=== PATIENT | male | born 1990 | race Two or more races ===

== ENCOUNTER 2020-09-16 23:27 | Observation (INO) | payer OTHER, SELFPAY ==
[2020-09-16] VITALS (7 sets, daily range): BP systolic 132–149; BP diastolic 76–92; PULSE 98–120; RESP 19–25; TEMP 38.3; O2SAT 96
--- NOTE | ~2020-09-16 | XR_ITS ---
EXAMINATION: XR chest 1V portable EXAM DATE: 09/17/2020 01:23 INDICATION: Seizure, cough. TECHNIQUE: Portable AP frontal chest x-ray was obtained. There is no prior study for comparison. FINDINGS: Low lung volume causing some pulmonary vascular crowding. No confluent consolidation, pneum othorax or pleural effusion suspected. Cardiomediastinal silhouette is normal. There are no osseous a bnormalities identified. IMPRESSION: Low lung volume. No definite airspace disease. Reviewed, dictated and finalized at location A. LITIES ASSISTANT
--- NOTE | ~2020-09-16 | CT_ITS ---
EXAMINATION: CT brain wo con EXAM DATE: 09/17/2020 01:32 INDICATION: Seizure. TECHNIQUE: Spiral CT of the head was performed without contrast. Axial, coronal and sagittal images were reviewed. The dose-length product (DLP) for this examination was 756.67 mGy-cm. The exposure w as tailored according to patient size, and iterative reconstruction (ASIR) was used as additional dos e reduction technique. There is no prior study for comparison. FINDINGS: There is dense calcification in the right parietal lobe white matter measuring about 1.2 cm in greatest axial dimension, without adjacent edema. Another smaller calcification measuring 9 mm in the right occipital region. These are chronic, could be sequela from prior infection, possibly conge nital. Bilateral symmetric basal ganglia dystrophic calcification. No acute intracranial hemorrhage or infarction. There is no mass effect or midline shift. The ventr icles are normal in size. There are no extra-axial collections. There are no acute calvarial fractu res. The orbits are unremarkable. Soft tissue is unremarkable. There is extensive ethmoid mucoperio steal thickening, small regions in both maxillary sinuses. IMPRESSION: 1. 2 benign right subcortical white matter calcifications, could be sequela from prior infection. 2. No acute intracranial findings. 3. Extensive ethmoid sinus opacity. Reviewed, dictated and finalized at location A. SQUAD COMMANDER IMPRESSION: 1. 2 benign right subcortical white matter calcifications, could be sequela fr om prior infection. 2. No acute intracranial findings. 3. Extensive ethmoid sinus opacity.
[2020-09-16] MEDS: SODIUM CHLORIDE 0.9% IV 1,000 ML 999 ML IV CONT (23:25)
--- NOTE | 2020-09-16 23:34 | ECG_ITS ---
Measurements Intervals Aldie Rate: 96 P: 50 NV: 135 QRS: 84 QRSD: 93 T: -5 QT: 344 QTc: 435 Interpretive Statements SINUS RHYTHM VOLTAGE CRITERIA FOR LVH MINIMAL Q WAVES- ANTEROLAT/INF LEADS BORDERLINE T WAVE ABNORMALITY- ANTEROLAT/INF LEADS BORDERLINE ECG Electronically Signed On 09-17-2020 7:08:18 DESIGNER/WRITER by Blane Hughes D.O.
[2020-09-16] MEDS: LORazepam INJ (*CRX) 2 MG/ML VIAL 1 MG IV PUSH (23:37)
[2020-09-16 23:45] LABS: Basophils Percent Auto 0.1 % (0.2-1.2); Hemoglobin 11.4 g/dL (14.0-18.0); Immature Granulocyte Absolute 0.05 K/mm3 (0.00-0.031); Immature Granulocyte Percent A 0.3 % (0-0.5); Lymphocytes Absolute Auto 1.86 K/mm3 (0.9-3.2); Lymphocytes Percent Auto 12.9 % (18.3-44.2); Mean Corpuscular HGB Conc 33.5 g/dl (32-36); Mean Corpuscular Hemoglobin 28.3 pg (26-34); Mean Corpuscular Volume 84.4 fl (80-100); Mean Platelet Volume 10.7 fl (7.4-10.4); Monocytes Absolute Auto 1.1 K/mm3 (0.1-0.6); Monocytes Percent Auto 7.7 % (2.6-8.5); Neutrophils Absolute Auto 11.4 K/mm3 (1.3-6.7); Platelet Count Result 289 k/mm3 (150-375); Red Blood Count 4.03 M/mm3 (4.6-6.20); Red Cell Distribution Width 11.9 % (11.5-14.5); White Blood Count 14.4 K/mm3 (4.5-10.0)
[2020-09-16] MEDS: levETIRAcetam 1000MG/NACL100ML 1,000 MG/100 ML BAG 400 MG IVPB (23:45)
--- NOTE | 2020-09-16 23:45 | PC.NURSE ---
ED techs to bedside. FSBS done. mother refuses to let staff straight cath patient for urine. states we can wait and he can use a urinal. attempted to explain need for urine to facilitate treatment. mother still refuses.
[2020-09-16 23:54] LABS: INR 1.1; Prothrombin Time 14.4 Seconds (11.1-14.7)
[2020-09-16 23:55] LABS: Partial Thromboplastin Time 31.1 SECONDS (22.3-36.8)
[2020-09-17] VITALS (23 sets, daily range): BP systolic 119–149; BP diastolic 67–98; PULSE 74–112; RESP 18–34; TEMP 36.4–37.3; O2SAT 90–100; BMI 28.4
[2020-09-17 00:01] LABS: Albumin Level 4.2 g/dL (3.5-5.1); Alkaline Phosphatase 98 U/L (38-126); Anion Gap 13 mmol/L (8-16); Aspartate Amino Transferase 113 U/L (17-59); Bilirubin,Total 0.5 mg/dL (0.2-1.3); Blood Urea Nitrogen 17 mg/dL (9-20); Calcium 9.1 mg/dL (8.4-10.2); Carbon Dioxide 19 mmol/L (22-30); Chloride 105 mmol/L (98-107); Estimated CRCL calculation 45 ml/min; Estimated Glomerular Filt Rate 33; Glucose 138 mg/dL (75-110); Potassium 3.4 mmol/L (3.4-5.0); Sodium 137 mmol/L (137-145)
[2020-09-17 00:02] LABS: Glucose Point of Care 158 (65-105)
[2020-09-17 00:03] LABS: Lactic Acid Reflex 4.7 mmol/L (0.7-2.1)
[2020-09-17 00:08] LABS: Alanine Aminotransferase 32 U/L (4-50)
--- NOTE | 2020-09-17 00:11 | ED.GENADULT ---
HPI - General Adult General Chief complaint: Seizure Stated complaint: SEIZURE Time Seen by Provider: 09/16/20 23:29 History of Present Illness HPI narrative: Patient is a 30-year-old gentleman who presents to the emergency department with chief complaint of seizure. Patient has a long history of seizures and has been on medications for some time. The patient decided recently that he does not like [place] and I decided to stop taking his medications. The patient had a seizure lasting between 1 and 2 minutes at home and then was confused and combative afterwards. Patient's family states that he gets rather aggressive after he has a seizure. Patient family reports no trauma no new illness denies fever or chills. Related Data Allergies Allergy/AdvReac Type Severity Reaction Status Date / Time haloperidol [From Haldol] Allergy Other Verified 09/16/20 23:36 Review of Systems Review of Systems: Narrative: A 10 system review of systems was completed on the patient and is negative except for what is stated in the HPI. Nursing and ancillary documentation was reviewed. PMFSH Comments Past medical history significant for seizures and bipolar disorder Social history patient denies smoking Exam Narrative: Exam Narrative: GENERAL: Well-appearing, well-nourished, and in no acute distress. HEAD: Normocephalic, atraumatic. EYES: PERRLA and EOMI. ENT: Nares clear, no rhinorrhea or epistaxis. Mucous membranes moist. NECK: Supple. CHEST: Clear to auscultation. No respiratory distress. HEART: Regular rate and rhythm. No murmur heard. Normal peripheral pulses. ABDOMEN: Soft, nontender, nondistended, normal active bowel sounds. EXTREMITIES: Normal range of motion. No edema. SKIN: Warm, dry, no rash. NEURO: No focal deficits. Alert and oriented x3. PSYCH: Normal mood and affect. Course Vital Signs Vital signs: Vital Signs Pulse Rate 108 H 09/16/20 23:34 Respiratory Rate 19 09/16/20 23:34 Temperature 37.3 C 09/17/20 02:56 Pulse Rate 97 09/17/20 01:45 Respiratory Rate 21 H 09/17/20 01:45 Blood Pressure 135/80 09/17/20 00:01 Pulse Oximetry 97 09/17/20 00:36 Medical Decision Making Vital Signs Vital Signs: Vital Signs Pulse Rate 108 H 09/16/20 23:34 Respiratory Rate 19 09/16/20 23:34 Temperature 37.3 C 09/17/20 02:56 Pulse Rate 97 09/17/20 01:45 Respiratory Rate 21 H 09/17/20 01:45 Blood Pressure 135/80 09/17/20 00:01 Pulse Oximetry 97 09/17/20 00:36 Lab Data Result diagrams: 09/16/20 23:38 09/16/20 23:38 Labs: Lab Results 09/16/20 09/16/20 09/16/20 Range/Units 23:38 23:38 23:38 WBC 14.4 H (4.5-10.0) K/mm3 RBC 4.03 L (4.6-6.20) M/mm3 Hgb 11.4 L (14.0-18.0) g/dL Hct 34.0 L (42.0-52.0) % MCV 84.4 (80-100) fl MCH 28.3 (26-34) pg MCHC 33.5 (32-36) g/dl RDW 11.9 (11.5-14.5) % Plt Count 289 (150-375) k/mm3 MPV 10.7 H (7.4-10.4) fl Immature Gran % (Auto) 0.3 (0-0.5) % Neut % (Auto) 79.0 H (45.5-73.1) % Lymph % (Auto) 12.9 L (18.3-44.2) % [place] % (Auto) 7.7 (2.6-8.5) % Eos % (Auto) 0.0 (0-4.4) % Baso % (Auto) 0.1 L (0.2-1.2) % Lymph # (Auto) 1.86 (0.9-3.2) K/mm3 [place] # (Auto) 1.1 H (0.1-0.6) K/mm3 Eos # (Auto) 0.0 (0-0.3) K/mm3 Baso # (Auto) 0.0 (0.0-0.1) K/mm3 Abs Immat Gran (auto) 0.05 H (0.00-0.031) K/mm3 Absolute Neuts (auto) 11.4 H (1.3-6.7) K/mm3 Absolute Nucleated RBC 0.0 (0.0-0.012) K/mm3 Nucleated RBC % 0.0 (0.0-0.2) % PT 14.4 (11.1-14.7) Seconds INR 1.1 APTT 31.1 (22.3-36.8) SECONDS Sodium 137 (137-145) mmol/L Potassium 3.4 (3.4-5.0) mmol/L Chloride 105 (98-107) mmol/L Carbon Dioxide 19 L (22-30) mmol/L Anion Gap 13 (8-16) mmol/L BUN 17 (9-20) mg/dL Creatinine 2.30 H (0.7-1.3) mg/dL Estim Creat Clear Calc 45 ml/min Estimated GFR 33 L (59 - ) Glu
--- NOTE | 2020-09-17 00:22 | PC.NURSE ---
patient continues to be lethargic. does awaken to painful stimuli. mother in room. on front desk monitor but patient removes monitors frequently. no significant response to verbal stimuli at this time. patient attempting to lay on his side. pulse ox now on ear. monitors back on. warm blanket given.
[2020-09-17 00:27] LABS: Valproic Acid < 10.0 ug/mL (50-120)
[2020-09-17] MEDS: SODIUM CHLORIDE 0.9% IV 1,000 ML 999 ML IV CONT (00:48)
--- NOTE | 2020-09-17 00:49 | PC.NURSE ---
patient's mother frequently out in hallway. concerned that patient is moving in bed. pulling monitors off. 2nd liter of NS started. mother reassured that monitors are being placed back on frequently. patient continues to be lethargic but does respond to his mother's voice. uncooperative with monitors and IVF.
--- NOTE | 2020-09-17 01:33 | PC.NURSE ---
patient back from CT. urine specimen collected and sent to lab. patient more alert. answers questions now appropriately. speaks some Telugu. continues to ask for water. advised he needs to wait for CT scan results. IVF done. patient continues to pull monitors off.
[2020-09-17 01:50] LABS: Creatine Kinase 6392 U/L (55-170)
[2020-09-17 02:01] LABS: Add Urine Microscopic? YES; Appearance Urine Clear (Clear); Bilirubin Urine Negative (Negative); Blood Urine 2+ (Negative); Color Urine Straw (Yellow); Glucose Urine UA Negative (Negative); Ketones Urine Negative (Negative); Leukocyte Esterase Ur Negative LEU/UL (Negative); Nitrate Urine Negative (Negative); Protein Urine 2+ mg/dL (Negative); RBC Urine 0-2 /hpf (0-2); Specific Grav Ur 1.008 (1.001-1.035); Urobilinogen Urine Negative mg/dL (<2.0); WBC Urine 0-3 /hpf
--- NOTE | 2020-09-17 02:06 | PC.NURSE ---
provider in room. patient alert. yelling at mother and staff. patient will need admitted. will check with provider if patient can have anything PO. patient took all monitors off. alert. resting on stretcher.
--- NOTE | 2020-09-17 02:37 | PC.NURSE ---
patient's mother is staying when patient is transferred upstairs. patient with hx of TBI, seizure disorder and bipolar. not on meds. mother is aware of all his history and is able to help patient communicate. charge nurse spoke with assisted living housekeeper. waiting for admission orders and then bed assignment.
[2020-09-17 02:42] LABS: Reflex Lactic Acid Yes or No Add Lactic
--- NOTE | 2020-09-17 02:57 | PC.NURSE ---
patient's mother refused to let cat scan tech draw additional labs at this time. states patient is sleeping. report given to Mary BUCK.
--- NOTE | 2020-09-17 03:10 | PC.NURSE ---
Addendum entered by Aguilar Ramos RN 09/17/20 04:13: Pt is also refusing to get into a gown, pulls arms away and yells at staff. Original Note: Report received from HEBER Garcia, to continue care. Pt allowing blood to be drawn at this time. Pt noted to be pulling off leads and taking off monitoring devices despite being told the importance of keeping them on.
[2020-09-17 03:44] LABS: Lactic Acid 0.9 mmol/L (0.7-2.1)
--- NOTE | 2020-09-17 03:46 | PC.NURSE ---
Awaiting bed assignment. Pt and family updated when cardiac monitor replaced. Again explained importance of leaving the monitor in place.
--- NOTE | 2020-09-17 04:12 | PC.NURSE ---
Attempt to call report to 3rd [facility] surg, floor RN unavailable.
--- NOTE | 2020-09-17 04:45 | PC.NURSE ---
This patient, Jose Olivarez, was admitted to [facility] Surg Room 304-01. Patient/family oriented to hospital policies and general routines including ID bracelet, bed and alarms, visiting hours, pain management, procedures, bathroom and other care routines, personal items, smoking policy, room service/diet, and visiting hours. Information on how to activate the Rapid Response Team has been discussed. Patient/Family are encouraged to report perceived risks to care and to ask questions if they do not understand what they are told or what they should do.
--- NOTE | 2020-09-17 04:50 | PC.NURSE ---
0450 patient moved from stretcher to bed. Mother at bedside, she states his IV hurts him and she wants it removed. This RN educated mother that is how he is receiving medications. This RN tried to apply ice to IV site, educating mother again on the importance of leaving IV in. Patient pulled out IV site. This RN stated that we will need to replace IV for medications and mother refuses. This RN attempted to apply telemetry on patient. Patient began yelling at this RN, grabbing at nurses wrists. Mother stated to only wake him in the morning. Dr. Mercado notified.
[2020-09-17 07:06] LABS: Creatine Kinase 7667 U/L (55-170)
[2020-09-17 07:57] LABS: Basophils Percent Auto 0.2 % (0.2-1.2); Eosinophils Percent Auto 0.1 % (0-4.4); Hematocrit 33.5 % (42.0-52.0); Immature Granulocyte Absolute 0.03 K/mm3 (0.00-0.031); Immature Granulocyte Percent A 0.2 % (0-0.5); Lymphocytes Absolute Auto 3.03 K/mm3 (0.9-3.2); Lymphocytes Percent Auto 24.9 % (18.3-44.2); Mean Corpuscular HGB Conc 32.8 g/dl (32-36); Mean Corpuscular Hemoglobin 28.1 pg (26-34); Mean Corpuscular Volume 85.7 fl (80-100); Mean Platelet Volume 11.3 fl (7.4-10.4); Monocytes Absolute Auto 1.4 K/mm3 (0.1-0.6); Monocytes Percent Auto 11.3 % (2.6-8.5); Neutrophils Absolute Auto 7.7 K/mm3 (1.3-6.7); Neutrophils Percent Auto 63.3 % (45.5-73.1); Platelet Count Result 241 k/mm3 (150-375); Red Blood Count 3.91 M/mm3 (4.6-6.20); White Blood Count 12.2 K/mm3 (4.5-10.0)
[2020-09-17 08:06] LABS: Alanine Aminotransferase 27 U/L (4-50); Albumin Level 3.6 g/dL (3.5-5.1); Alkaline Phosphatase 78 U/L (38-126); Anion Gap 7 mmol/L (8-16); Aspartate Amino Transferase 114 U/L (17-59); Bilirubin,Total 0.4 mg/dL (0.2-1.3); Blood Urea Nitrogen 15 mg/dL (9-20); Calcium 8.8 mg/dL (8.4-10.2); Carbon Dioxide 22 mmol/L (22-30); Chloride 111 mmol/L (98-107); Estimated CRCL calculation 47 ml/min; Estimated Glomerular Filt Rate 35; Glucose 100 mg/dL (75-110); Magnesium 1.7 mg/dL (1.6-2.3); Potassium 3.3 mmol/L (3.4-5.0); Sodium 140 mmol/L (137-145)
[2020-09-17 10:00] LABS: Creatine Kinase 9424 U/L (55-170)
[2020-09-17] MEDS: POTASSIUM CHLORIDE 20 MEQ TABLET 40 MEQ PO (10:42)
[2020-09-17] MEDS: MAGNESIUM OXIDE 400 MG TABLET PO (11:12)
[2020-09-17] MEDS: LORazepam (*CRX) 1 MG TABLET PO ×2 (11:12→17:09)
[2020-09-17] MEDS: OXcarbazepine 300 MG TABLET 600 MG PO (11:12)
[2020-09-17] MEDS: DIVALPROEX SODIUM 250 MG TABEC 500 MG PO ×2 (11:12→17:09)
--- NOTE | 2020-09-17 11:47 | WPDNEURCNPN ---
Assessment and Plan Assessment and plan (1) Seizure: Code(s): R56.9 - Unspecified convulsions Status: Acute (2) Rhabdomyolysis: Qualifiers: Rhabdomyolysis type: non-traumatic Qualified Code(s): M62.82 - Rhabdomyolysis Code(s): M62.82 - Rhabdomyolysis Status: Acute Additional Plan history of seizure disorder for a long duration for which he is taking 2 anticonvulsants but recently decided not to take any medications general exam and neuro examination grossly nonfocal I convinced him to take the medication further recommendation will be made accordingly after conversation with the family Consult date: 09/17/20 Time Seen: 11:00 HPI: Jose Olivarez is a 30 year old male admitted to the hospital for the complaints of seizure. Patient history of seizure for a long time and decided to stop taking the medications he had a seizure which lasted between 1 to 2 minutes at home and subsequently was extremely combative and confused was brought to the emergency room and admitted for further evaluation as per the information available from him briefly he has ongoing history of seizure for a long duration was unable to provide any further data Review of Systems Review of Systems: All systems reviewed & are unremarkable except as noted in HPI and below PMFSH Social History Social History Smoking status: Never smoker Alcohol intake: never Substance use: never Spiritual care concerns: No Meds Home Medications and Allergies Home Medications Medication Instructions Recorded Confirmed Type divalproex [Depakote] 500 mg PO BID 09/17/20 09/17/20 History levetiracetam 1,000 mg PO Q12H 09/17/20 09/17/20 History lorazepam 1 mg PO BID 09/17/20 09/17/20 History oxcarbazepine See Rx Instructions .ROUTE .COMPLEX 09/17/20 09/17/20 History paliperidone 6 mg PO DAILY 09/17/20 09/17/20 History Allergies Allergy/AdvReac Type Severity Reaction Status Date / Time haloperidol [From Haldol] Allergy Other Verified 09/16/20 23:36 Vital Signs Vital Signs - 24 hr 09/16/20 23:34 09/16/20 23:36 09/16/20 23:37 Temperature Pulse Rate 108 H 117 H 111 H Respiratory Rate 19 22 H 20 Blood Pressure 149/92 H Pulse Oximetry 09/16/20 23:39 09/16/20 23:44 09/16/20 23:45 Temperature 38.3 C H Pulse Rate 120 H 103 H 101 H Respiratory Rate 22 H 25 H Blood Pressure 149/92 H Pulse Oximetry 96 09/16/20 23:46 09/17/20 00:00 09/17/20 00:01 Temperature Pulse Rate 98 105 H 110 H Respiratory Rate 24 H 26 H 25 H Blood Pressure 132/76 135/80 Pulse Oximetry 98 90 09/17/20 00:36 09/17/20 00:51 09/17/20 01:00 Temperature Pulse Rate 74 97 85 Respiratory Rate 24 H 24 H 27 H Blood Pressure Pulse Oximetry 97 09/17/20 01:34 09/17/20 01:45 09/17/20 02:00 Temperature Pulse Rate 102 H 97 107 H Respiratory Rate 21 H 24 H Blood Pressure Pulse Oximetry 09/17/20 02:21 09/17/20 02:30 09/17/20 02:45 Temperature Pulse Rate 92 86 Respiratory Rate 27 H 28 H Blood Pressure Pulse Oximetry 98 97 09/17/20 02:56 09/17/20 03:00 09/17/20 03:15 Temperature 37.3 C Pulse Rate 88 104 H Respiratory Rate 31 H 29 H Blood Pressure Pulse Oximetry 100 09/17/20 03:30 09/17/20 03:34 09/17/20 03:43 Temperature Pulse Rate 97 96 112 H Respiratory Rate 23 H 34 H 18 Blood Pressure 132/67 132/67 Pulse Oximetry 99 97 09/17/20 08:00 09/17/20 11:06 Temperature 36.8 C Pulse Rate 89 Respiratory Rate 18 Blood Pressure 132/75 Pulse Oximetry 98 97 Exam Const: General: cooperative, comfortable, no acute distress, alert, awake, anxious and confusion Nutritional Appearance: average body habitus and thin Limitations: other limitations ( impaired memory) HENMT: Head: No palpable skull fracture present and normocephalic Ears: hearing grossly normal bilaterally and external ears normal General nose
--- NOTE | 2020-09-17 13:42 | PM.IMHP ---
H&P: HPI History of Present Illness Date/Time: 09/17/20 13:42 Chief Complaint: Seizures. Narrative: Jose Olivarez is a 30 year old male male with a childhood history seizures and psychiatry illness schizophrenia, patient had been taking his psychiatry and seizure medications however recently last few weeks patient is refusing to take his medical, he states the medication makes him feel sick and does not want to take the medication, however patient had several seizure this morning and was brought to the emergency depart for further evaluation, patient was given IV Keppra however he was combative and agitated took the IV out, and removed telemetry, patient is a very poor historian and difficult to communicate, i was able to discuss with the patient and he has agreed to take his oral medication and took the medication in front of from me, I spoke with the patient's mother who was outside the room as patient gets agitated when she is in the room and wants to go home, plan is to monitor patient 1 to 2 days to make sure the patient is taking his medication, I have also consulted Neurology for further recommendations. Patient is being tested for COVID-19 and being isolated Review of Systems Review of Systems: ROS unobtainable: Yes unobtainable due to medical condition PMFSH Social History Social History Smoking status: Never smoker Alcohol intake: never Substance use: never Spiritual care concerns: No Meds Home Medications and Allergies Home Medications Medication Instructions Recorded Confirmed Type divalproex [Depakote] 500 mg PO BID 09/17/20 09/17/20 History levetiracetam 1,000 mg PO Q12H 09/17/20 09/17/20 History lorazepam 1 mg PO BID 09/17/20 09/17/20 History oxcarbazepine See Rx Instructions .ROUTE .COMPLEX 09/17/20 09/17/20 History paliperidone 6 mg PO DAILY 09/17/20 09/17/20 History Allergies Allergy/AdvReac Type Severity Reaction Status Date / Time haloperidol [From Haldol] Allergy Other Verified 09/16/20 23:36 Vital Signs Vital Signs - 24 hr 09/16/20 23:34 09/16/20 23:36 09/16/20 23:37 Temperature Pulse Rate 108 H 117 H 111 H Respiratory Rate 19 22 H 20 Blood Pressure 149/92 H Pulse Oximetry 09/16/20 23:39 09/16/20 23:44 09/16/20 23:45 Temperature 101.0 F H Pulse Rate 120 H 103 H 101 H Respiratory Rate 22 H 25 H Blood Pressure 149/92 H Pulse Oximetry 96 09/16/20 23:46 09/17/20 00:00 09/17/20 00:01 Temperature Pulse Rate 98 105 H 110 H Respiratory Rate 24 H 26 H 25 H Blood Pressure 132/76 135/80 Pulse Oximetry 98 90 09/17/20 00:36 09/17/20 00:51 09/17/20 01:00 Temperature Pulse Rate 74 97 85 Respiratory Rate 24 H 24 H 27 H Blood Pressure Pulse Oximetry 97 09/17/20 01:34 09/17/20 01:45 09/17/20 02:00 Temperature Pulse Rate 102 H 97 107 H Respiratory Rate 21 H 24 H Blood Pressure Pulse Oximetry 09/17/20 02:21 09/17/20 02:30 09/17/20 02:45 Temperature Pulse Rate 92 86 Respiratory Rate 27 H 28 H Blood Pressure Pulse Oximetry 98 97 09/17/20 02:56 09/17/20 03:00 09/17/20 03:15 Temperature 99.2 F Pulse Rate 88 104 H Respiratory Rate 31 H 29 H Blood Pressure Pulse Oximetry 100 09/17/20 03:30 09/17/20 03:34 09/17/20 03:43 Temperature Pulse Rate 97 96 112 H Respiratory Rate 23 H 34 H 18 Blood Pressure 132/67 132/67 Pulse Oximetry 99 97 09/17/20 08:00 09/17/20 11:06 09/17/20 12:00 Temperature 98.3 F 97.6 F Pulse Rate 89 84 Respiratory Rate 18 20 Blood Pressure 132/75 119/71 Pulse Oximetry 98 97 95 Exam Narrative: Exam Narrative: Patient is comfortable, NAD HEENT: eyes are clear and none icteric LUNGS: Normal respiratory effort ABD: not distended Lower extremities: no edema SKIN: nonjaundiced Neuro: grossly intact. H&P: Results Labs Labs: Short CBC 09/16/20 09/17/20 Range/Units 23:38 05:34 WBC 14.4
[2020-09-17 16:56] LABS: SARS-CoV-2 RNA PCR Negative
--- NOTE | 2020-09-17 19:21 | PHAR ---
HOME MEDICATION VERIFIED BY PHARMACY: PALIPERIDONE 6MG ER TABLET TAKE 1 TAB PO DAILY RX#[id number]
[2020-09-17] MEDS: OXcarbazepine 300 MG TABLET PO (20:17)
[2020-09-17] MEDS: levETIRAcetam 500 MG TABLET 1000 MG PO (20:17)
[2020-09-18 06:00] VITALS: BP 138/87; PULSE 89; RESP 20; TEMP 37.2; O2SAT 100
[2020-09-18 06:11] LABS: Basophils Absolute Auto 0.1 K/mm3 (0.0-0.1); Basophils Percent Auto 0.5 % (0.2-1.2); Eosinophils Absolute Auto 0.2 K/mm3 (0-0.3); Eosinophils Percent Auto 1.9 % (0-4.4); Hematocrit 32.7 % (42.0-52.0); Hemoglobin 10.8 g/dL (14.0-18.0); Immature Granulocyte Absolute 0.03 K/mm3 (0.00-0.031); Immature Granulocyte Percent A 0.3 % (0-0.5); Lymphocytes Absolute Auto 2.81 K/mm3 (0.9-3.2); Mean Corpuscular Hemoglobin 28.2 pg (26-34); Mean Corpuscular Volume 85.4 fl (80-100); Mean Platelet Volume 10.9 fl (7.4-10.4); Monocytes Absolute Auto 0.8 K/mm3 (0.1-0.6); Monocytes Percent Auto 8.7 % (2.6-8.5); Neutrophils Absolute Auto 5.8 K/mm3 (1.3-6.7); Neutrophils Percent Auto 59.6 % (45.5-73.1); Platelet Count Result 246 k/mm3 (150-375); Red Blood Count 3.83 M/mm3 (4.6-6.20); Red Cell Distribution Width 11.9 % (11.5-14.5); White Blood Count 9.7 K/mm3 (4.5-10.0)
[2020-09-18 07:03] LABS: Alanine Aminotransferase 28 U/L (4-50); Albumin Level 3.8 g/dL (3.5-5.1); Alkaline Phosphatase 80 U/L (38-126); Anion Gap 7 mmol/L (8-16); Aspartate Amino Transferase 95 U/L (17-59); Bilirubin,Total 0.3 mg/dL (0.2-1.3); Blood Urea Nitrogen 21 mg/dL (9-20); Calcium 8.8 mg/dL (8.4-10.2); Carbon Dioxide 23 mmol/L (22-30); Chloride 111 mmol/L (98-107); Estimated CRCL calculation 45 ml/min; Estimated Glomerular Filt Rate 35; Glucose 101 mg/dL (75-110); Magnesium 1.9 mg/dL (1.6-2.3); Potassium 3.9 mmol/L (3.4-5.0); Sodium 141 mmol/L (137-145)
[2020-09-18 08:00] VITALS: BP 132/78; PULSE 92; RESP 20; TEMP 36.2; O2SAT 95
[2020-09-18 10:04] LABS: Creatine Kinase 5109 U/L (55-170)
[2020-09-18] MEDS: DIVALPROEX SODIUM 250 MG TABEC 500 MG PO ×2 (10:14→17:57)
[2020-09-18] MEDS: levETIRAcetam 500 MG TABLET 1000 MG PO ×2 (10:15→20:50)
[2020-09-18] MEDS: MAGNESIUM OXIDE 400 MG TABLET PO (10:16)
[2020-09-18] MEDS: LORazepam (*CRX) 1 MG TABLET PO ×2 (10:16→17:57)
[2020-09-18] MEDS: OXcarbazepine 300 MG TABLET 600 MG PO (10:16)
--- NOTE | 2020-09-18 11:40 | WPDNEUROPN ---
Progress Note: A&P Assessment and Plan (1) Seizure: Code(s): R56.9 - Unspecified convulsions Status: Acute (2) Rhabdomyolysis: Qualifiers: Rhabdomyolysis type: non-traumatic Qualified Code(s): M62.82 - Rhabdomyolysis Code(s): M62.82 - Rhabdomyolysis Status: Acute Additional Plan stable for the time being treatment will be continued as such Review of Systems Review of Systems: All systems reviewed & are unremarkable except as noted in HPI and below Exam Const: General: cooperative and comfortable Nutritional Appearance: average body habitus Orientation/consciousness: oriented to person and oriented to place HENMT: Head: normocephalic Ears: hearing grossly normal bilaterally General nose exam: No nasal discharge present Face and sinus: normal facial exam Mouth: Yes Normal oral and palatal mucosa present Eyes: General: appearance normal, both eyes and all related structures Neck: Neck: full ROM and no lymphadenopathy Resp: Effort & Inspection: normal respiratory effort Auscultation: clear to auscultation bilaterally Cardio: Rate: regular rate Rhythm: regular rhythm GI: Auscultation: normal bowel sounds Skin: General skin exam: no rashes or lesions noted Neuro: General: oriented to person, oriented to place and moves all extremities Cranial nerves: Yes CN's II-XII intact bilaterally Speech: Other speech findings present (Neuro) ( delayed speech but very verbal but follows instructions fairly well) Motor exam (neuro): Pronator motor function not present Sensory Exam: normal sensation Psych: Speech and movement: Normal speech and movement present and Slowed speech present (Psych) Affect: Indifferent affect present Attitude: cooperative Thought process: Circumstantial thought process present Thought content: Yes Normal thought content present Insight: Limited insight present (Psych) Judgement: Limited judgement present (Psych) Objective Data Vital Signs Vital Signs: Vital Signs - 24 hr 09/17/20 12:00 09/17/20 16:00 09/17/20 19:34 Temperature 36.4 C 36.7 C Pulse Rate 84 83 86 Respiratory Rate 20 18 Blood Pressure 119/71 140/82 149/98 H Pulse Oximetry 95 99 100 09/17/20 22:00 09/18/20 06:00 09/18/20 08:00 Temperature 37.1 C 37.2 C 36.2 C L Pulse Rate 86 89 92 Respiratory Rate 20 20 20 Blood Pressure 138/83 138/87 132/78 Pulse Oximetry 100 100 95 Intake/Output Intake/Output: Intake & Output 09/15/20 09/16/20 09/17/20 09/18/20 23:59 23:59 23:59 23:59 Intake Total 3850 1180 Output Total 600 Balance 3850 580 Meds/Results Medications: Active Medications Generic Name Dose Route Start Last Admin Trade Name Freq PRN Reason Stop Dose Admin Acetaminophen 650 mg 09/17/20 03:06 Acetaminophen 325 Mg Tablet PO Q4H PRN Mild Pain (1-3) or Fever Divalproex Sodium 500 mg 09/17/20 09:00 09/18/20 10:14 Divalproex Sodium 250 Mg Tabec PO 500 mg BID JAYME Administration Levetiracetam 1,000 mg 09/17/20 21:00 09/18/20 10:15 Levetiracetam 500 Mg Tablet PO 1,000 mg Q12HR JAYME Administration Lorazepam 1 mg 09/17/20 09:00 09/18/20 10:16 Lorazepam (*Crx) 1 Mg Tablet PO 1 mg BID JAYME Administration Magnesium Oxide 400 mg 09/17/20 09:00 09/18/20 10:16 Magnesium Oxide 400 Mg Tablet PO 400 mg QAM JAYME Administration Ondansetron HCl 4 mg 09/17/20 03:06 Ondansetron Inj 4 Mg/2 Ml Vial IV PUSH Q4H PRN Nausea Oxcarbazepine 600 mg 09/17/20 09:00 09/18/20 10:16 Oxcarbazepine 300 Mg Tablet PO 600 mg QAM JAYME Administration Oxcarbazepine 300 mg 09/17/20 21:00 09/17/20 20:17 Oxcarbazepine 300 Mg Tablet PO 300 mg HS JAYME Administration Radiology Results: ITS Impressions Head CT 09/17/20 07:23 IMPRESSION: 1. 2 benign right subcortical white matter calcifications, could be sequela from prior infection. 2. No acute intracranial findings. 3. Extensive ethmoid sin
[2020-09-18 12:00] VITALS: BP 139/70; PULSE 90; RESP 20; TEMP 36.6; O2SAT 96
--- NOTE | 2020-09-18 14:01 | PM.IMPN ---
Progress Note: A&P Assessment and Plan (1) Seizure: Code(s): R56.9 - Unspecified convulsions Status: Acute Assessment and Plan: Jose Olivarez is a 30 year old male male with a childhood history seizures and psychiatry illness schizophrenia, patient had been taking his psychiatry and seizure medications however recently last few weeks patient is refusing to take his medications. Here started on keppra seen neurology. (2) Rhabdomyolysis: Qualifiers: Rhabdomyolysis type: non-traumatic Qualified Code(s): M62.82 - Rhabdomyolysis Code(s): M62.82 - Rhabdomyolysis Status: Acute Assessment and Plan: continue fluids monitoring ck. (3) Febrile illness: Code(s): R50.9 - Fever, unspecified Status: Resolved Assessment and Plan: Mild febrile illness, COVID is negative. Subjective Date/time seen: 09/18/20 14:01 Interval history: 30 year old male male with a childhood history seizures and psychiatry illness schizophrenia, patient had been taking his psychiatry and seizure medications however recently last few weeks patient is refusing to take his medications. Pt has been seizure free, pt had a fall yesterday onto his face in toilet denies any injuries. Review of Systems Review of Systems: All systems reviewed & are unremarkable except as noted in HPI and below Exam Narrative: Exam Narrative: Patient is comfortable, younger male in bed with seizure precautions HEENT: eyes are clear and none icteric LUNGS: Normal respiratory effort ABDO: not distended Lower extremities: no edema SKIN: nonjaundiced Neuro: grossly intact. Objective Data Vital Signs Vital Signs: Vital Signs - 24 hr 09/17/20 16:00 09/17/20 19:34 09/17/20 22:00 Temperature 36.7 C 37.1 C Pulse Rate 83 86 86 Respiratory Rate 18 20 Blood Pressure 140/82 149/98 H 138/83 Pulse Oximetry 99 100 100 09/18/20 06:00 09/18/20 08:00 09/18/20 12:00 Temperature 37.2 C 36.2 C L 36.6 C Pulse Rate 89 92 90 Respiratory Rate 20 20 20 Blood Pressure 138/87 132/78 139/70 Pulse Oximetry 100 95 96 Intake/Output Intake/Output: Intake & Output 09/15/20 09/16/20 09/17/20 09/18/20 23:59 23:59 23:59 23:59 Intake Total 3850 1180 Output Total 600 Balance 3850 580 Meds/Results Medications: Active Medications Generic Name Dose Route Start Last Admin Trade Name Nishi PRN Reason Stop Dose Admin Acetaminophen 650 mg 09/17/20 03:06 Acetaminophen 325 Mg Tablet PO Q4H PRN Mild Pain (1-3) or Fever Divalproex Sodium 500 mg 09/17/20 09:00 09/18/20 10:14 Divalproex Sodium 250 Mg Tabec PO 500 mg BID JAYME Administration Levetiracetam 1,000 mg 09/17/20 21:00 09/18/20 10:15 Levetiracetam 500 Mg Tablet PO 1,000 mg Q12HR JAYME Administration Lorazepam 1 mg 09/17/20 09:00 09/18/20 10:16 Lorazepam (*Crx) 1 Mg Tablet PO 1 mg BID JAYME Administration Magnesium Oxide 400 mg 09/17/20 09:00 09/18/20 10:16 Magnesium Oxide 400 Mg Tablet PO 400 mg QAM JAYME Administration Ondansetron HCl 4 mg 09/17/20 03:06 Ondansetron Inj 4 Mg/2 Ml Vial IV PUSH Q4H PRN Nausea Oxcarbazepine 600 mg 09/17/20 09:00 09/18/20 10:16 Oxcarbazepine 300 Mg Tablet PO 600 mg QAM JAYME Administration Oxcarbazepine 300 mg 09/17/20 21:00 09/17/20 20:17 Oxcarbazepine 300 Mg Tablet PO 300 mg HS JAYME Administration Radiology Results: ITS Impressions Head CT 09/17/20 07:23 IMPRESSION: 1. 2 benign right subcortical white matter calcifications, could be sequela from prior infection. 2. No acute intracranial findings. 3. Extensive ethmoid sinus opacity. Chest X-Ray 09/17/20 08:31 IMPRESSION: Low lung volume. No definite airspace disease. Labs Labs: Laboratory Results - last 24 hr 09/17/20 09/18/20 09/18/20 02:15 05:39 05:39 WBC 9.7 RBC 3.83 L Hgb 10.8 L Hct 32.7 L MCV 85.
[2020-09-18 16:00] VITALS: BP 142/74; PULSE 88; RESP 20; TEMP 36.2; O2SAT 97
[2020-09-18 20:00] VITALS: BP 115/65; PULSE 94; RESP 18; TEMP 37.4; O2SAT 99
[2020-09-18] MEDS: OXcarbazepine 300 MG TABLET PO (20:50)
[2020-09-18 22:00] VITALS: BP 115/65; PULSE 94; RESP 18; TEMP 37.4; O2SAT 99
[2020-09-19 06:00] VITALS: BP 114/70; PULSE 97; RESP 18; TEMP 36.9; O2SAT 100
[2020-09-19 06:08] LABS: Basophils Percent Auto 0.3 % (0.2-1.2); Eosinophils Absolute Auto 0.2 K/mm3 (0-0.3); Eosinophils Percent Auto 2.5 % (0-4.4); Hematocrit 33.4 % (42.0-52.0); Immature Granulocyte Absolute 0.03 K/mm3 (0.00-0.031); Immature Granulocyte Percent A 0.3 % (0-0.5); Lymphocytes Absolute Auto 2.88 K/mm3 (0.9-3.2); Lymphocytes Percent Auto 31.9 % (18.3-44.2); Mean Corpuscular HGB Conc 32.9 g/dl (32-36); Mean Corpuscular Hemoglobin 28.4 pg (26-34); Mean Corpuscular Volume 86.1 fl (80-100); Monocytes Absolute Auto 0.6 K/mm3 (0.1-0.6); Monocytes Percent Auto 7.1 % (2.6-8.5); Neutrophils Absolute Auto 5.2 K/mm3 (1.3-6.7); Neutrophils Percent Auto 57.9 % (45.5-73.1); Platelet Count Result 253 k/mm3 (150-375); Red Blood Count 3.88 M/mm3 (4.6-6.20)
[2020-09-19 06:43] LABS: Alanine Aminotransferase 24 U/L (4-50); Albumin Level 3.7 g/dL (3.5-5.1); Alkaline Phosphatase 76 U/L (38-126); Anion Gap 4 mmol/L (8-16); Aspartate Amino Transferase 54 U/L (17-59); Bilirubin,Total 0.3 mg/dL (0.2-1.3); Blood Urea Nitrogen 20 mg/dL (9-20); Calcium 8.7 mg/dL (8.4-10.2); Carbon Dioxide 25 mmol/L (22-30); Chloride 110 mmol/L (98-107); Creatine Kinase 2050 U/L (55-170); Estimated CRCL calculation 48 ml/min; Estimated Glomerular Filt Rate 37; Glucose 102 mg/dL (75-110); Magnesium 1.8 mg/dL (1.6-2.3); Potassium 3.9 mmol/L (3.4-5.0); Sodium 139 mmol/L (137-145)
[2020-09-19] MEDS: DIVALPROEX SODIUM 250 MG TABEC 500 MG PO ×2 (09:24→18:50)
[2020-09-19] MEDS: levETIRAcetam 500 MG TABLET 1000 MG PO ×2 (09:24→20:03)
[2020-09-19] MEDS: MAGNESIUM OXIDE 400 MG TABLET PO (09:25)
[2020-09-19] MEDS: OXcarbazepine 300 MG TABLET 600 MG PO (09:25)
[2020-09-19] MEDS: LORazepam (*CRX) 1 MG TABLET PO (09:26)
--- NOTE | 2020-09-19 11:47 | PM.IMPN ---
Progress Note: A&P Assessment and Plan (1) Seizure: Code(s): R56.9 - Unspecified convulsions Status: Acute Assessment and Plan: Jose Olivarez is a 30 year old male male with a childhood history seizures and psychiatry illness schizophrenia, patient had been taking his psychiatry and seizure medications however recently last few weeks patient is refusing to take his medications. Here started on keppra seen neurology. (2) Rhabdomyolysis: Qualifiers: Rhabdomyolysis type: non-traumatic Qualified Code(s): M62.82 - Rhabdomyolysis Code(s): M62.82 - Rhabdomyolysis Status: Acute Assessment and Plan: continue fluids monitoring ck. ck is 2000 today. (3) Febrile illness: Code(s): R50.9 - Fever, unspecified Status: Resolved Assessment and Plan: Mild febrile illness, COVID is negative. (4) Schizo-affective schizophrenia: Code(s): F25.9 - Schizoaffective disorder, unspecified Status: Acute Assessment and Plan: Medications reviewed with mother, mother requesting a psych consult. Subjective Date/time seen: 09/19/20 11:47 Interval history: 30 year old male male with a childhood history seizures and psychiatry illness schizophrenia, patient had been taking his psychiatry and seizure medications however recently last few weeks patient is refusing to take his medications. Pt has been seizure free, pt feel better today more alert and keeping conversation. Discussed with his family about his medications, they would like a psych consult. Review of Systems Review of Systems: All systems reviewed & are unremarkable except as noted in HPI and below ROS unobtainable: Yes unobtainable due to medical condition Exam Narrative: Exam Narrative: Patient is comfortable, younger male doing well HEENT: eyes are clear and none icteric LUNGS: Normal respiratory effort ABDO: not distended Lower extremities: no edema SKIN: nonjaundiced Neuro: grossly intact. Objective Data Vital Signs Vital Signs: Vital Signs - 24 hr 09/18/20 12:00 09/18/20 16:00 09/18/20 20:00 Temperature 36.6 C 36.2 C L 37.4 C Pulse Rate 90 88 94 Respiratory Rate 20 20 18 Blood Pressure 139/70 142/74 H 115/65 Pulse Oximetry 96 97 99 09/18/20 22:00 09/19/20 06:00 Temperature 37.4 C 36.9 C Pulse Rate 94 97 Respiratory Rate 18 18 Blood Pressure 115/65 114/70 Pulse Oximetry 99 100 Intake/Output Intake/Output: Intake & Output 09/16/20 09/17/20 09/18/20 09/19/20 23:59 23:59 23:59 23:59 Intake Total 3850 2710 580 Output Total 1600 Balance 3850 1110 580 Meds/Results Medications: Active Medications Generic Name Dose Route Start Last Admin Trade Name Nishi PRN Reason Stop Dose Admin Acetaminophen 650 mg 09/17/20 03:06 Acetaminophen 325 Mg Tablet PO Q4H PRN Mild Pain (1-3) or Fever Divalproex Sodium 500 mg 09/17/20 09:00 09/19/20 09:24 Divalproex Sodium 250 Mg Tabec PO 500 mg BID JAYME Administration Levetiracetam 1,000 mg 09/17/20 21:00 09/19/20 09:24 Levetiracetam 500 Mg Tablet PO 1,000 mg Q12HR JAYME Administration Lorazepam 1 mg 09/20/20 09:00 Lorazepam (*Crx) 1 Mg Tablet PO DAILY JAYME Magnesium Oxide 400 mg 09/17/20 09:00 09/19/20 09:25 Magnesium Oxide 400 Mg Tablet PO 400 mg QAM JAYME Administration Ondansetron HCl 4 mg 09/17/20 03:06 Ondansetron Inj 4 Mg/2 Ml Vial IV PUSH Q4H PRN Nausea Oxcarbazepine 600 mg 09/17/20 09:00 09/19/20 09:25 Oxcarbazepine 300 Mg Tablet PO 600 mg QAM JAYME Administration Oxcarbazepine 300 mg 09/17/20 21:00 09/18/20 20:50 Oxcarbazepine 300 Mg Tablet PO 300 mg HS JAYME Administration Radiology Results: ITS Impressions Head CT 09/17/20 07:23 IMPRESSION: 1. 2 benign right subcortical white matter calcifications, could be sequela from prior infection. 2. No acute intracranial findings. 3. Extensive ethmoid
--- NOTE | 2020-09-19 12:00 | PC.NURSE ---
Although Dr. Mcgovern requested psychiatry to see pt, psychiatry deferring to an outpatient visit since he is already established and not exhibiting new symptoms. Will consult with care coordination for a list of local psychiatrists.
[2020-09-19 14:00] VITALS: BP 125/71; PULSE 111; RESP 18; TEMP 36.6; O2SAT 95
[2020-09-19] MEDS: OXcarbazepine 300 MG TABLET PO (20:03)
[2020-09-19 21:31] VITALS: BP 118/71; PULSE 110; RESP 20; TEMP 37.2; O2SAT 96
[2020-09-20 06:00] VITALS: BP 130/73; PULSE 98; RESP 18; TEMP 36.7; O2SAT 97
[2020-09-20 06:43] LABS: Basophils Percent Auto 0.4 % (0.2-1.2); Eosinophils Absolute Auto 0.3 K/mm3 (0-0.3); Eosinophils Percent Auto 3.2 % (0-4.4); Hematocrit 36.1 % (42.0-52.0); Hemoglobin 11.7 g/dL (14.0-18.0); Immature Granulocyte Absolute 0.02 K/mm3 (0.00-0.031); Immature Granulocyte Percent A 0.2 % (0-0.5); Lymphocytes Absolute Auto 3.03 K/mm3 (0.9-3.2); Lymphocytes Percent Auto 36.9 % (18.3-44.2); Mean Corpuscular HGB Conc 32.4 g/dl (32-36); Mean Corpuscular Hemoglobin 28.1 pg (26-34); Mean Corpuscular Volume 86.6 fl (80-100); Mean Platelet Volume 10.6 fl (7.4-10.4); Monocytes Absolute Auto 0.6 K/mm3 (0.1-0.6); Monocytes Percent Auto 7.3 % (2.6-8.5); Neutrophils Absolute Auto 4.3 K/mm3 (1.3-6.7); Platelet Count Result 281 k/mm3 (150-375); Red Blood Count 4.17 M/mm3 (4.6-6.20); Red Cell Distribution Width 11.9 % (11.5-14.5); White Blood Count 8.2 K/mm3 (4.5-10.0)
[2020-09-20 07:19] LABS: Alanine Aminotransferase 22 U/L (4-50); Albumin Level 3.9 g/dL (3.5-5.1); Alkaline Phosphatase 86 U/L (38-126); Anion Gap 6 mmol/L (8-16); Aspartate Amino Transferase 42 U/L (17-59); Bilirubin,Total 0.3 mg/dL (0.2-1.3); Blood Urea Nitrogen 21 mg/dL (9-20); Carbon Dioxide 26 mmol/L (22-30); Chloride 107 mmol/L (98-107); Creatine Kinase 1087 U/L (55-170); Estimated CRCL calculation 48 ml/min; Estimated Glomerular Filt Rate 37; Glucose 96 mg/dL (75-110); Magnesium 1.9 mg/dL (1.6-2.3); Potassium 4.2 mmol/L (3.4-5.0); Sodium 139 mmol/L (137-145)
[2020-09-20] MEDS: MAGNESIUM OXIDE 400 MG TABLET PO (09:15)
[2020-09-20] MEDS: levETIRAcetam 500 MG TABLET 1000 MG PO (09:15)
[2020-09-20] MEDS: OXcarbazepine 300 MG TABLET 600 MG PO (09:16)
[2020-09-20] MEDS: DIVALPROEX SODIUM 250 MG TABEC 500 MG PO (09:16)
[2020-09-20] MEDS: LORazepam (*CRX) 1 MG TABLET PO (09:17)
--- NOTE | 2020-09-20 11:09 | PM.DS ---
DS: Admitting Diagnosis Admitting Diagnosis Admitting Diagnosis: Chief Complaint: Seizures. DS: Discharge Diagnosis Discharge Diagnosis (1) Seizure: Code(s): R56.9 - Unspecified convulsions Status: Acute Assessment and Plan: Jose Olivarez is a 30 year old male [place] male with a childhood history seizures and psychiatry illness schizophrenia, patient had been taking his psychiatry and seizure medications however recently last few weeks patient is refusing to take his medications. Here started on keppra seen neurology. (2) Rhabdomyolysis: Qualifiers: Rhabdomyolysis type: non-traumatic Qualified Code(s): M62.82 - Rhabdomyolysis Code(s): M62.82 - Rhabdomyolysis Status: Acute Assessment and Plan: continue fluids monitoring ck. ck is 2000 today. (3) Febrile illness: Code(s): R50.9 - Fever, unspecified Status: Resolved Assessment and Plan: Mild febrile illness, COVID is negative. (4) Schizo-affective schizophrenia: Code(s): F25.9 - Schizoaffective disorder, unspecified Status: Acute Assessment and Plan: Medications reviewed with mother, mother requesting a psych consult. DS: Summary Hospital Course Reason for hospitalization: Chief Complaint: Seizures. Narrative: Jose Olivarez is a 30 year old male [place] male with a childhood history seizures and psychiatry illness schizophrenia, patient had been taking his psychiatry and seizure medications however recently last few weeks patient is refusing to take his medical, he states the medication makes him feel sick and does not want to take the medication, however patient had several seizure this morning and was brought to the emergency depart for further evaluation, patient was given IV Keppra however he was combative and agitated took the IV out, and removed telemetry, patient is a very poor historian and difficult to communicate, i was able to discuss with the patient and he has agreed to take his oral medication and took the medication in front of from me, I spoke with the patient's mother who was outside the room as patient gets agitated when she is in the room and wants to go home, plan is to monitor patient 1 to 2 days to make sure the patient is taking his medication, I have also consulted Neurology for further recommendations. Patient is being tested for COVID-19 and being isolated Hospital Course: Jose Olivarez is a 30 year old male [place] male with a childhood history seizures and psychiatry illness schizophrenia, patient had been taking his psychiatry and seizure medications however recently last few weeks patient is refusing to take his medications. Here started on keppra seen neurology, After long discussion patient started to take his Keppra as well as antipsychotic medication patient remained clinically stable he was able to participate physical therapy to limited extent, he has not had any seizure while in the hospital, I spoke with the patient's mother is he feel comfortable taking the patient home, also patient will follow-up with his neurologist and psychiatrist as soon as possible will continue home regimen. His CK level is trending down. Status at Discharge Functional status at discharge: independent ambulation Overall status at discharge: patient is back to baseline Time Spent with Patient Time attestation: Total time spent providing and/or coordinating discharge services: Patient was seen and examined at the time of the discharge Condition at discharge is stable Code status: Full code. Time spent preparing discharge summary, discharge medications, discussing discharge planning with rn case mgr and patient is 35 minutes. Time spent: Greater than 30 minutes Exam Narrative: Exam Narrative: Patient is comfortable, younger male doing well HEENT: eyes are clear and none icteric LUNGS: Normal respiratory effort ABDO: not distended Lower extremities: no edema SKIN: nonjaundiced Leslie
--- NOTE | 2020-11-20 17:04 | WPDCN ---
HPI Data of Consult Date/Time: 11/20/20 17:04 Requesting Physician: Pierre Torres MD Primary Care Provider: Aaron Julien MD Consult Narrative Narrative: Jose Olivarez is a 30 year old male who refused consultation [facility] Social History Social History Smoking status: Never smoker Alcohol intake: never Substance use: never Spiritual care concerns: No Meds Home Medications and Allergies Home Medications Medication Instructions Recorded Confirmed Type divalproex [Depakote] 500 mg PO BID 09/17/20 09/17/20 History levetiracetam 1,000 mg PO Q12H 09/17/20 09/17/20 History lorazepam 1 mg PO BID 09/17/20 09/17/20 History oxcarbazepine See Rx Instructions .ROUTE .COMPLEX 09/17/20 09/17/20 History paliperidone 6 mg PO DAILY 09/17/20 09/17/20 History magnesium oxide 400 mg PO QAM #30 tablet 09/20/20 Rx Allergies Allergy/AdvReac Type Severity Reaction Status Date / Time haloperidol [From Haldol] Allergy Other Verified 09/16/20 23:36 Results Labs CBC & Chem 7: 09/20/20 05:45 09/20/20 05:45
--- NOTE | 2020-11-20 17:05 | WPDCN ---
HPI Data of Consult Date/Time: 11/20/20 17:05 Requesting Physician: Pierre Torres MD Primary Care Provider: Aaron Julien MD Consult Narrative Narrative: Jose Olivarez is a 30 year old male who refused psychiatric consultation [facility] Social History Social History Smoking status: Never smoker Alcohol intake: never Substance use: never Spiritual care concerns: No Meds Home Medications and Allergies Home Medications Medication Instructions Recorded Confirmed Type divalproex [Depakote] 500 mg PO BID 09/17/20 09/17/20 History levetiracetam 1,000 mg PO Q12H 09/17/20 09/17/20 History lorazepam 1 mg PO BID 09/17/20 09/17/20 History oxcarbazepine See Rx Instructions .ROUTE .COMPLEX 09/17/20 09/17/20 History paliperidone 6 mg PO DAILY 09/17/20 09/17/20 History magnesium oxide 400 mg PO QAM #30 tablet 09/20/20 Rx Allergies Allergy/AdvReac Type Severity Reaction Status Date / Time haloperidol [From Haldol] Allergy Other Verified 09/16/20 23:36 Results Labs CBC & Chem 7: 09/20/20 05:45 09/20/20 05:45
== END 2020-09-20 14:30 | disposition home or self-care (01) ==
LOC: ANHED 09-17 03:14 → ANH3MEDSUR 09-17 07:30
PROVIDERS: Admitting Provider Internal Medicine; Emergency Provider Emergency Medicine; PCP Internal Medicine; Visit Provider Family Medicine
DX: R56.9 Unspecified convulsions (principal); M62.82 Rhabdomyolysis; Z20.822 Contact with and (suspected) exposure to COVID-19; F25.9 Schizoaffective disorder, unspecified
CPT/HCPCS: 36415; 70450; 71045; 80053; 80164; 81001; 82550; 82948; 83605; 83735; 85025; 85610; 85730; 87040; 87804; 93005; 96361; 96365; 96375; 99285; A9270; C9803; G0378; G0379; J1953; J2060; J7030; U0003; U0005

== ENCOUNTER 2021-05-25 12:48 | Outpatient (CLI) | payer OTHER, SELFPAY ==
--- NOTE | ~2021-05-25 | US_ITS ---
EXAMINATION: US renal BI DATE: 05/25/2021 13:38 INDICATION: Stage IIIB chronic kidney disease TECHNIQUE: Multiple ultrasound grayscale images of the kidneys were obtained. COMPARISON: None. FINDINGS: The right kidney measures 9.1 x 4.6 x 6.0 cm. The left kidney measures 9.9 x 5.6 x 5.6 cm. The kidney s demonstrate normal echogenicity. 1.2 cm hyperechoic nodule at the left kidney. There is no hydronep hrosis in either kidney. No stones identified. The bladder is normal. IMPRESSION: 1. 1.2 cm hyperechoic nodule at the inferior left kidney consistent with neoplasm which could be eit her benign such as angiomyolipoma or malignant renal cell carcinoma. Recommend further evaluation wit h pre and postcontrast MRI or CT. Reviewed, dictated and finalized at location B. IMPRESSION: 1. 1.2 cm hyperechoic nodule at the inferior left kidney consistent with neopl asm which could be either benign such as angiomyolipoma or malignant renal cell carcinoma. Recommend further evaluation with pre and postcontrast MRI or CT.
== END 2021-05-25 12:49 | disposition home or self-care (01) ==
PROVIDERS: PCP Internal Medicine; Referring Provider Internal Medicine Nephrology; Visit Provider Internal Medicine
DX: N18.32 Chronic kidney disease, stage 3b (principal)
CPT/HCPCS: 76775

== ENCOUNTER 2021-12-06 10:58 | Emergency (ER) | payer OTHER, SELFPAY ==
--- NOTE | ~2021-12-06 | XR_ITS ---
EXAMINATION: XR chest 2V DATE: 12/06/2021 13:51 INDICATION: Right-sided chest pain with deep inspiration TECHNIQUE: frontal and lateral views of the chest were obtained. COMPARISON: Chest radiograph dated 09/17/2020 FINDINGS: The lungs are clear with no focal airspace opacities, pulmonary edema, pleural effusion or pneumothor ax. The cardiomediastinal silhouette is normal. Mild thoracolumbar dextrocurvature. IMPRESSION: 1. No acute cardiopulmonary disease. Reviewed, dictated and finalized at location A.
--- NOTE | ~2021-12-06 | NM_ITS ---
EXAMINATION: NM pulmonary perfusion EXAM DATE: 12/06/2021 15:09 INDICATION: Pain with deep breath. TECHNIQUE: A perfusion lung scan was performed. The patient was injected with 5 mCi technetium 99m M AA and imaged. The Modified PIOPED 2 criteria used for interpretation of this perfusion only study, w ith 3 possible interpretations (PE present, PE absent, nondiagnostic) based on findings present, and correlated with a recent chest x-ray. More specifically, a high probability scan will be interpreted as pulmonary embolism present. A normal or near normal scan will be interpreted as pulmonary embolism absent. And finally an intermediate probability scan will be interpreted as nondiagnostic. Correlat ion made to chest x-ray same date. FINDINGS: There is symmetric lung activity, are no perfusion defects. Normal perfusion scan. IMPRESSION: Pulmonary embolism absent. Reviewed, dictated and finalized at location A. IMPRESSION: Pulmonary embolism absent.
--- NOTE | ~2021-12-06 | CT_ITS ---
EXAMINATION: CT abdomen pelvis wo con DATE: 12/06/2021 13:37 INDICATION: Left renal mass TECHNIQUE: Computed tomography (CT) of the abdomen and pelvis was performed without intravenous contr ast. Automated exposure control and iterative reconstruction technique were employed. The dose-length product was 629.65 mGy-cm. COMPARISON: Ultrasound dated 05/25/2021 FINDINGS: 3 motion and mild atelectasis at the bilateral lung bases. Heart size is normal. No pericardial or pl eural effusion. Liver, gallbladder, spleen, pancreas and bilateral adrenal glands are normal. There a re several macroscopic fat attenuation lesions in both kidneys consistent with angiomyolipomas, the l argest at the lateral mid left kidney which appears to correspond to the hyperechoic lesion of concer n on the prior ultrasound with the increased echogenicity also be consistent with macroscopic fat. Th ere are couple fluid attenuation left renal cysts the larger measuring 1.7 cm. There are also a coupl e higher attenuation lesions at both kidneys, the largest at the upper pole of the right kidney measu ring 9 mm cyst is most likely to represent tenacious/hemorrhagic cysts but too small to definitively characterize. Bowels including the appendix are normal. Decompressed bladder is normal. No free intra peritoneal gas or fluid. No pathologically enlarged abdominal or pelvic lymphadenopathy. Mild lumbar levoscoliosis with mild spondylosis. Multiple scattered small sclerotic bone lesions. A few are less dense than would be expected for bone islands including the largest 1.6 cm lesion in the L3 vertebral body which raises some concern for metastatic disease. IMPRESSION: 1. Multiple bilateral macroscopic fat attenuation renal lesions consistent with angiomyolipomas. Alth ough this can be sporadic, the multiplicity however raise the possibility of an underlying phacomatos is which could include tuberous sclerosis, mandible and Down syndrome and neurofibromatosis type I. 2. Couple indeterminate attenuation subcentimeter lesions in the left and right kidneys most likely t o represent proteinaceous/hemorrhagic cysts although solid enhancing neoplasm cannot be absolutely ex cluded. Patient's renal function does not allow for contrast administration for more definitive deter mination would consider 6-12 month follow-up CT or MRI, preferably with and without contrast if renal function allows. 3. A few scattered sclerotic bone lesions most suspicious for a 1.6 cm lesion at the L3 vertebral bod y and differential would include metastatic disease. Correlate for any history of prior malignancy an d consider bone scan for further evaluation. Reviewed, dictated and finalized at location A. IMPRESSION: 1. Multiple bilateral macroscopic fat attenuation renal lesions consistent with angiomyolipomas. Although this can be sporadic, the multiplicity however raise the possibility of an underlying phacomatosis which could include tuberous scl erosis, mandible and Down syndrome and neurofibromatosis type I. 2. Couple indeterminate attenuation subcentimeter lesions in the left and right kidneys most likely to represent proteinaceous/hemorrhagic cysts although kimberly d enhancing neoplasm cannot be absolutely excluded. Patient's renal function do es not allow for contrast administration for more definitive determination woul d consider 6-12 month follow-up CT or MRI, preferably with and without contrast if renal function allows. 3. A few scattered sclerotic bone lesions most suspicious for a 1.6 cm lesion a t the L3 vertebral body and differential would include metastatic disease. Bren elate for any history of prior malignancy and consider bone scan for further ev aluation.
[2021-12-06 11:00] VITALS: BP 145/88; PULSE 72; RESP 17; TEMP 36.1; O2SAT 100
--- NOTE | 2021-12-06 12:11 | PC.NURSE ---
Patient and family members arguing in waiting room doorway, patient not staying in room. Patient and family members told that they need to wait in the room if the wish to be seen and treated.
--- NOTE | 2021-12-06 13:10 | ED.GENADULT ---
HPI - General Adult General Chief complaint: Back Pain/Injury Stated complaint: back pain Time Seen by Provider: 12/06/21 12:04 History of Present Illness HPI narrative: Patient is a 31-year-old male who presents ER with right-sided back pain. Sharp pain last night. It made him cry. No numbness or tingling or nausea or vomiting. Patient is not Amharic-speaking and is accompanied by his mother who is helping provide history. Patient also has history of schizophrenia and bipolar disorder. Patient was agreeable to coming to the ER to be evaluated today due to this pain last night. Mother's been trying to get him to go to the hospital patient for about 3 weeks to obtain the CT scan. She has an outpatient order for a CT scan abdomen pelvis without contrast. Patient has a left-sided renal mass that he had an ultrasound performed 05/2021. At that time he recommended CT scan with and without contrast to better evaluate lesion. He has not had the scan yet. Patient also reports that he is having pain on his right side mid to lower thoracic region with deep breath. Denies lower extremity swelling or cramping. No hemoptysis. No lower extremity numbness or tingling. No difficulty with urination/defecation. Related Data Home Medications Medication Instructions Recorded Confirmed divalproex [Depakote] 500 mg PO BID 09/17/20 09/17/20 levetiracetam 1,000 mg PO Q12H 09/17/20 09/17/20 lorazepam 1 mg PO BID 09/17/20 09/17/20 oxcarbazepine See Rx Instructions .ROUTE .COMPLEX 09/17/20 09/17/20 paliperidone 6 mg PO DAILY 09/17/20 09/17/20 Allergies Allergy/AdvReac Type Severity Reaction Status Date / Time haloperidol [From Haldol] Allergy Other Verified 12/06/21 11:03 Review of Systems Review of Systems: All systems reviewed & are unremarkable except as noted in HPI and below Constitutional: Constitutional: Denies chills and Denies fever(s) Cardiovascular: Cardiovascular: Denies chest pain and Denies rapid heart rate Respiratory: Respiratory: Denies cough and Denies dyspnea Gastrointestinal: Gastrointestinal: Denies abdominal pain, Denies nausea and Denies vomiting Musculoskeletal: Musculoskeletal: Reports back pain, Denies arthralgias and Denies joint swelling Neurologic: Denies focal weakness and Denies numbness PMFSH Past Medical History Medical History (Updated 12/06/21 @ 16:28 by Greg Velez MD) Left renal mass Schizo-affective schizophrenia Seizure Tuberous sclerosis Surgical History Surgical History (Updated 12/06/21 @ 13:16 by Greg Velez MD) No pertinent past surgical history Social History Social History Smoking status: Never smoker Alcohol intake: never Substance use: never Spiritual care concerns: No Exam Narrative: GENERAL: Well-appearing, well-nourished, and in no acute distress. HEAD: Normocephalic, atraumatic. EYES: PERRL and EOMI. CHEST: Clear to auscultation. No respiratory distress. HEART: Regular rate and rhythm. Normal peripheral pulses. ABDOMEN: Soft, nontender, nondistended. Back: No midline tenderness of thoracic or lumbar spine. There is tenderness over the thoracic wall inferior to the scapula on the right side. No palpable spasm. EXTREMITIES: Normal range of motion. No edema. SKIN: Warm, dry, no rash. NEURO: Awake and alert, speaking clearly to his mother and following commands without issue. Language barrier noted. Course Course Emergency Course: Patient's mother informed of results and relayed to son. Will discharge with some muscle relaxers. Discussed the case with the patient's primary care physician Dr. Julien. He reports patient does not fact have history of tuberous sclerosis that is presumptively what is causing his seizures as well. She has patient has follow-up in 1 week. Patient has also been given a disc with images and report on it. Vital Signs Vital signs: Vital Signs Temperature 97.0 F
[2021-12-06 13:12] LABS: Basophils Percent Auto 0.5 % (0.2-1.2); Eosinophils Absolute Auto 0.4 K/mm3 (0-0.3); Eosinophils Percent Auto 5.2 % (0-4.4); Hematocrit 33.8 % (42.0-52.0); Hemoglobin 10.5 g/dL (14.0-18.0); Immature Granulocyte Absolute 0.03 K/mm3 (0.00-0.031); Immature Granulocyte Percent A 0.4 % (0-0.5); Lymphocytes Absolute Auto 2.05 K/mm3 (0.9-3.2); Lymphocytes Percent Auto 27.6 % (18.3-44.2); Mean Corpuscular HGB Conc 31.1 g/dl (32-36); Mean Corpuscular Hemoglobin 28.3 pg (26-34); Mean Corpuscular Volume 91.1 fl (80-100); Mean Platelet Volume 9.6 fl (7.4-10.4); Monocytes Absolute Auto 0.7 K/mm3 (0.1-0.6); Monocytes Percent Auto 9.4 % (2.6-8.5); Neutrophils Absolute Auto 4.2 K/mm3 (1.3-6.7); Neutrophils Percent Auto 56.9 % (45.5-73.1); Platelet Count Result 185 k/mm3 (150-375); Red Blood Count 3.71 M/mm3 (4.6-6.20); Red Cell Distribution Width 13.2 % (11.5-14.5); White Blood Count 7.4 K/mm3 (4.5-10.0)
[2021-12-06 13:21] LABS: INR 1.1; Prothrombin Time 13.3 Seconds (11.1-14.7)
[2021-12-06 13:22] LABS: Partial Thromboplastin Time 29.8 SECONDS (22.3-36.8)
[2021-12-06 13:23] LABS: Alanine Aminotransferase 8 U/L (4-50); Albumin Level 4.5 g/dL (3.5-5.1); Alkaline Phosphatase 166 U/L (38-126); Anion Gap 8 mmol/L (8-16); Aspartate Amino Transferase 26 U/L (17-59); Bilirubin,Total < 0.1 mg/dL (0.2-1.3); Blood Urea Nitrogen 21 mg/dL (9-20); Calcium 8.9 mg/dL (8.4-10.2); Carbon Dioxide 23 mmol/L (22-30); Chloride 108 mmol/L (98-107); Estimated CRCL calculation 43 ml/min; Estimated Glomerular Filt Rate 29; Glucose 117 mg/dL (65-110); Potassium 4.4 mmol/L (3.4-5.0); Sodium 139 mmol/L (137-145)
--- NOTE | 2021-12-06 13:32 | PC.NURSE ---
Pt to CT/XRAY via w/c at this time.
[2021-12-06 14:18] VITALS: BP 159/100; PULSE 76; RESP 15; O2SAT 100
== END 2021-12-06 17:08 | disposition home or self-care (01) ==
PROVIDERS: Emergency Provider Emergency Medicine; PCP Internal Medicine
DX: S39.012A Strain of muscle, fascia and tendon of lower back, initial encounter (principal); N28.89 Other specified disorders of kidney and ureter; F25.9 Schizoaffective disorder, unspecified; F31.9 Bipolar disorder, unspecified; R56.9 Unspecified convulsions; Q85.1 Tuberous sclerosis; M89.9 Disorder of bone, unspecified; X58.XXXA Exposure to other specified factors, initial encounter
CPT/HCPCS: 36415; 71046; 74176; 78580; 80053; 85025; 85610; 85730; 99284; A9540

== ENCOUNTER 2022-02-11 08:41 | Outpatient (CLI) | payer OTHER, SELFPAY ==
--- NOTE | ~2022-02-11 | NM_ITS ---
EXAMINATION: NM bone scan whole body DATE: 02/11/2022 12:37 INDICATION: Tuberous sclerosis. TECHNIQUE: 24.5 mCi Tc-99m HDP was administered intravenously. Delayed whole-body scintigrams were o btained. COMPARISON: CT abdomen and pelvis 12/06/2021 FINDINGS: There is a normal distribution of activity in the bones and kidneys. IMPRESSION: 1. Normal bone scan. Reviewed, dictated and finalized at location A. IMPRESSION: 1. Normal bone scan.
== END 2022-02-11 08:42 | disposition home or self-care (01) ==
PROVIDERS: PCP Internal Medicine; Visit Provider Internal Medicine
DX: Q85.1 Tuberous sclerosis (principal)
CPT/HCPCS: 78306; A9561

== ENCOUNTER 2022-06-16 20:40 | Emergency (ER) | payer OTHER, SELFPAY ==
[2022-06-16 20:45] VITALS: BP 155/91; PULSE 125; RESP 20; TEMP 37.7; O2SAT 99
[2022-06-16 21:34] LABS: Influenza A QL RT-PCR Negative (Negative); Influenza B QL RT-PCR Negative (Negative); SARS-CoV-2 RNA PCR Positive
--- NOTE | 2022-06-16 22:23 | ED.URI ---
HPI - URI/Sore Throat General Chief Complaint: Upper Respiratory Infection Stated Complaint: fever cough today Time Seen by Provider: 06/16/22 21:56 Source: patient and family Mode of arrival: ambulatory Limitations: no limitations History of Present Illness HPI Narrative: Patient is a 32 y/o male who presents to the ED with c/o fever. Patient does not speak [place]. His mother at bedside assisted in providing information. She reports patient began having chills this morning around 4 AM. He measured his temperature to be 102-103 at home. Patient was given Tylenol at approximately 7:30 PM. He also reports having a cough and sore throat, but denies chest pain, difficulty breathing, nausea, vomiting, abdominal pain. Denies sick contacts. Patient is COVID vaccinated. Related Data Home Medications Medication Instructions Recorded Confirmed divalproex 500 mg tablet,delayed 500 mg PO BID 09/17/20 09/17/20 release (Depakote) levetiracetam 1,000 mg tablet 1,000 mg PO Q12H 09/17/20 09/17/20 lorazepam 1 mg tablet 1 mg PO BID 09/17/20 09/17/20 oxcarbazepine 600 mg tablet See Rx Instructions .Route .COMPLEX 09/17/20 09/17/20 paliperidone 6 mg tablet,extended 6 mg PO DAILY 09/17/20 09/17/20 release 24 hr Allergies Allergy/AdvReac Type Severity Reaction Status Date / Time haloperidol [From Haldol] Allergy Other Verified 12/06/21 11:03 Review of Systems Review of Systems: CONSTITUTIONAL: Reports fever, chills, and sweats. ENT: Reports sore throat. Denies rhinorrhea, congestion. CARDIOVASCULAR: Denies chest pain. RESPIRATORY: Reports cough. Denies dyspnea. GASTROINTESTINAL: Denies abdominal pain, nausea, vomiting. All systems reviewed & are unremarkable except as noted in HPI and below PMFSH Past Medical History Medical History Left renal mass Schizo-affective schizophrenia Seizure Tuberous sclerosis Surgical History Surgical History No pertinent past surgical history Social History Social History Smoking status: Never smoker Alcohol intake: never Substance use: never Spiritual care concerns: No Exam Narrative: GENERAL: Well appearing, well-nourished, non-toxic, in no acute distress. HEAD: Normocephalic, atraumatic. EYES: PERRL/EOMI, conjunctivae clear bilaterally. NOSE: Normal, no drainage. THROAT: Pharynx clear, no tonsillar hypertrophy or exudate. MMs moist. Minimal posterior pharynx erythema. Uvula midline. NECK: Supple. No adenopathy, no masses. RESPIRATORY: Airway patent, respirations nonlabored. Clear to auscultation bilaterally, no rales, rhonchi, wheezing. Occasional coughing. CARDIOVASCULAR: Regular rate and rhythm without murmurs, rubs, or gallops. Peripheral pulses 2+ and equal bilaterally. MUSCULOSKELETAL: Moves all extremities. Strength/ROM intact without gross deformities. SKIN: Warm, dry, normal color. No rashes. NEURO: A&O X3. Speech clear. Cranial nerves II-XII grossly intact. Steady gait. No ataxic movements. PSYCHIATRIC: Appropriate mood and affect. Normal interaction. Course Vital Signs Vital signs: Vital Signs Temperature 99.8 F H 06/16/22 20:45 Pulse Rate 125 H 06/16/22 20:45 Respiratory Rate 20 06/16/22 20:45 Blood Pressure 155/91 H 06/16/22 20:45 Pulse Oximetry 99 06/16/22 20:45 Oxygen Delivery Room Air 06/16/22 20:45 Temperature 99.7 F H 06/16/22 22:38 Pulse Rate 101 H 06/16/22 22:38 Respiratory Rate 20 06/16/22 22:38 Blood Pressure 158/101 H 06/16/22 22:38 Pulse Oximetry 100 06/16/22 22:38 Oxygen Delivery Room Air 06/16/22 22:20 MDM - URI/Sore Throat MDM Narrative Medical decision making narrative: Patient presented to ED with 1 day history of fever, cough, sore throat. Patient borderline febrile, tachycardic upon arrival. He was given Tyleno
[2022-06-16 22:38] VITALS: BP 158/101; PULSE 101; RESP 20; TEMP 37.6; O2SAT 100
== END 2022-06-16 23:00 | disposition home or self-care (01) ==
PROVIDERS: Emergency Medicine; Emergency Provider Emergency Medicine; PCP Internal Medicine
DX: U07.1 COVID-19 (principal); F25.9 Schizoaffective disorder, unspecified; Q85.1 Tuberous sclerosis
CPT/HCPCS: 87502; 99283; U0003; U0005

== ENCOUNTER 2023-09-25 18:15 | Emergency (ER) | payer OTHER, SELFPAY ==
--- NOTE | ~2023-09-25 | XR_ITS ---
EXAM: XR foot RT min 3V, XR foot LT min 3V DATE: 09/25/2023 22:08 HISTORY: Pain at right 1st MTP and left calcaneus. COMPARISON: None available. FINDINGS: Normal mineralization. No fracture or dislocation. No lytic or blastic lesion. Mild hallux valgus and degenerative change at the bilateral first MTP joints. Bilateral pes planus. No erosion o r periosteal change. Soft tissues within normal limits. IMPRESSION: No acute osseous finding in the right or left foot. Reviewed, dictated and finalized at location K. [employer]LOG[employer] ASSISTANT IMPRESSION: No acute osseous finding in the right or left foot.
[2023-09-25 18:39] VITALS: BP 151/92; PULSE 88; TEMP 36.8; O2SAT 100
[2023-09-25 19:08] VITALS: BP 132/80; PULSE 89; TEMP 36.6; O2SAT 100
--- NOTE | 2023-09-25 22:05 | ED.EXTPRO ---
HPI - Extremity Problem General Chief complaint: Extremity Problem,Nontraumatic Stated complaint: R LEG PAIN FOR PAST WEEK Time Seen by Provider: 09/25/23 21:13 History of Present Illness HPI Narrative: 33-year-old male reports with his mother at bedside for evaluation for bilateral foot pain for the past 2 weeks. Patient is reporting pain to his left calcaneus and pain to his right 1st MTP. States the pain is worth in both feet when he walks. Denies history of gout, recent injury or trauma. Denies fever. Related Data Home Medications Medication Instructions Recorded Confirmed divalproex 500 mg tablet,delayed 500 mg PO BID 09/17/20 09/17/20 release (Depakote) levetiracetam 1,000 mg tablet 1,000 mg PO Q12H 09/17/20 09/17/20 lorazepam 1 mg tablet 1 mg PO BID 09/17/20 09/17/20 oxcarbazepine 600 mg tablet See Rx Instructions .Route .COMPLEX 09/17/20 09/17/20 paliperidone 6 mg tablet,extended 6 mg PO DAILY 09/17/20 09/17/20 release 24 hr Allergies Allergy/AdvReac Type Severity Reaction Status Date / Time haloperidol [From Haldol] Allergy Other Verified 12/06/21 11:03 Review of Systems Review of Systems: CONSTITUTIONAL: Denies fever, chills, or sweats. EYES: Denies visual changes, redness, or discharge. ENT: Denies rhinorrhea, congestion, sore throat, or otalgia. CARDIOVASCULAR: Denies chest pain, palpitations, or edema. RESPIRATORY: Denies cough or dyspnea. GASTROINTESTINAL: Denies abdominal pain, nausea, vomiting, or diarrhea. GENITOURINARY: Denies dysuria or hematuria. SKIN: Denies rash or itching. MUSCULOSKELETAL: See HPI NEUROLOGIC: Denies headache, numbness, or weakness. PSYCHIATRIC: Denies anxiety or depression. [facility] Past Medical History Medical History Left renal mass Schizo-affective schizophrenia Seizure Tuberous sclerosis Surgical History Surgical History No pertinent past surgical history Social History Social History Smoking status: Never smoker Alcohol intake: never Substance use: never Spiritual care concerns: No Exam Narrative: GENERAL: Well-appearing, well-nourished, and in no acute distress. HEAD: Normocephalic, atraumatic. NECK: Supple. CHEST: Clear to auscultation. No respiratory distress. HEART: Regular rate and rhythm. No murmur heard. Normal peripheral pulses. ABDOMEN: Soft, nontender, nondistended, normal active bowel sounds. EXTREMITIES: LLE: Tenderness to the calcaneus without overlying erythema, edema or deformity. No tenderness remainder of lower extremity. Full range of motion of foot and ankle. Negative Horowitz's. DP pulse 2 +. Sensation intact. RLE: Tenderness, edema in, erythema and warmth to the 1st MTP with full range of motion. No overlying lacerations, abrasions or wounds. Cap refill less than 2. Sensation to the remainder of the foot. Full range of motion of ankle and toes. DP pulse 2 +. Sensation intact. SKIN: Warm, dry, no rash. NEURO: No focal deficits. Alert and oriented x3 Course Vital Signs Vital signs: Vital Signs Temperature 98.2 F 09/25/23 18:39 Pulse Rate 88 09/25/23 18:39 Blood Pressure 151/92 H 09/25/23 18:39 Pulse Oximetry 100 09/25/23 18:39 Temperature 97.8 F 09/25/23 19:08 Pulse Rate 89 09/25/23 19:08 Blood Pressure 132/80 09/25/23 19:08 Pulse Oximetry 100 09/25/23 19:08 MDM - Extremity (Nontraumatic) MDM Narrative Medical decision making narrative: 33-year-old male reports with his mother at bedside for evaluation for left calcaneus pain and right 1st MTP pain for the past multiple weeks. See HPI for further history. Vitals stable. Patient afebrile. Exam of the right 1st MTP consistent with gout. Patient is neurovascularly intact. X-rays ordered. Labs obtained to check kidney function for gout tr
[2023-09-25 23:19] LABS: Basophils Percent Auto 0.2 % (0.2-1.2); Eosinophils Absolute Auto 0.5 K/mm3 (0-0.3); Eosinophils Percent Auto 6.1 % (0-4.4); Hematocrit 30.8 % (42.0-52.0); Hemoglobin 9.8 g/dL (14.0-18.0); Immature Granulocyte Absolute 0.01 K/mm3 (0.00-0.031); Immature Granulocyte Percent A 0.1 % (0-0.5); Lymphocytes Percent Auto 34.1 % (18.3-44.2); Mean Corpuscular HGB Conc 31.8 g/dl (32-36); Mean Corpuscular Hemoglobin 28.1 pg (26-34); Mean Corpuscular Volume 88.3 fl (80-100); Mean Platelet Volume 9.4 fl (7.4-10.4); Monocytes Absolute Auto 0.9 K/mm3 (0.1-0.6); Monocytes Percent Auto 10.4 % (2.6-8.5); Neutrophils Absolute Auto 4.3 K/mm3 (1.3-6.7); Neutrophils Percent Auto 49.1 % (45.5-73.1); Platelet Count Result 181 k/mm3 (150-375); Red Blood Count 3.49 M/mm3 (4.6-6.20); Red Cell Distribution Width 12.5 % (11.5-14.5); White Blood Count 8.8 K/mm3 (4.5-10.0)
[2023-09-25 23:29] LABS: Uric Acid 6.8 mg/dL (3.5-8.5)
[2023-09-25 23:30] LABS: Anion Gap 8 mmol/L (8-16); Blood Urea Nitrogen 24 mg/dL (9-20); Carbon Dioxide 24 mmol/L (22-30); Chloride 108 mmol/L (98-107); Estimated CRCL calculation 25 ml/min; Estimated Glomerular Filt Rate 17; Glucose 134 mg/dL (65-110); Potassium 4.1 mmol/L (3.4-5.0); Sodium 140 mmol/L (137-145)
[2023-09-26] MEDS: predniSONE 20 MG TABLET 40 MG PO (00:07)
[2023-09-26 00:12] VITALS: BP 163/108; PULSE 89; RESP 15; O2SAT 100
== END 2023-09-26 00:15 | disposition left against medical advice (07) ==
PROVIDERS: Emergency Provider Physician Assistant; PCP Internal Medicine
DX: N17.9 Acute kidney failure, unspecified (principal); M10.9 Gout, unspecified; F25.9 Schizoaffective disorder, unspecified
CPT/HCPCS: 36415; 73630; 80048; 84550; 85025; 99284; J7512

== ENCOUNTER 2023-10-25 14:20 | Inpatient (IN) | payer OTHER, SELFPAY ==
--- NOTE | ~2023-10-25 | XR_ITS ---
Right Knee Technique: AP and lateral views were obtained. Clinical History: Pain Findings: There is an acute fracture at the lateral aspect of the lateral tibial plateau, mildly disp laced. Joint spaces are preserved without degenerative or erosive change. Soft tissues are unremarkab le. No joint effusion is seen. Impression: Probable acute fracture the lateral and the lateral tibial plateau, mildly displaced. Reviewed, dictated and finalized at location . Impression: Probable acute fracture the lateral and the lateral tibial plateau, mildly disp laced.
--- NOTE | ~2023-10-25 | XR_ITS ---
Left Knee Technique: AP and lateral views were obtained. Clinical History: Pain Findings: No fracture or dislocation is seen. Osseous alignment is anatomic. Joint spaces are preserv ed without degenerative or erosive change. Soft tissues are unremarkable. No joint effusion is seen. Impression: Unremarkable left knee radiographs. Reviewed, dictated and finalized at location . Impression: Unremarkable left knee radiographs.
--- NOTE | ~2023-10-25 | XR_ITS ---
EXAMINATION: XR knee RT min 4V DATE: 10/25/2023 14:47 INDICATION: Right knee pain, initial encounter TECHNIQUE: Four views of the right knee were obtained. COMPARISON: None. FINDINGS: There is an acute, traumatic, closed, nondisplaced fracture of the lateral tibial plateau. There is a large knee joint effusion. Soft tissues are unremarkable. IMPRESSION: 1. Acute fracture of the lateral tibial plateau with large knee joint effusion. Reviewed, dictated and finalized at location B. [employer]
[2023-10-25 14:21] VITALS: BP 141/105; PULSE 94; RESP 18; O2SAT 100
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
[2023-10-25 16:36] VITALS: BP 166/114; O2SAT 100
[2023-10-25 16:37] VITALS: O2SAT 100
[2023-10-25] MEDS: HYDROcodone/acetaminophen (*CRX) 5-325 MG TABLET 1 TAB PO (16:40)
[2023-10-25 16:54] LABS: Basophils Percent Auto 0.2 % (0.2-1.2); Eosinophils Absolute Auto 0.2 K/mm3 (0-0.3); Eosinophils Percent Auto 2.4 % (0-4.4); Hematocrit 31.9 % (42.0-52.0); Immature Granulocyte Absolute 0.06 K/mm3 (0.00-0.031); Immature Granulocyte Percent A 0.6 % (0-0.5); Lymphocytes Absolute Auto 1.94 K/mm3 (0.9-3.2); Lymphocytes Percent Auto 19.4 % (18.3-44.2); Mean Corpuscular HGB Conc 31.3 g/dl (32-36); Mean Corpuscular Hemoglobin 27.2 pg (26-34); Mean Corpuscular Volume 86.9 fl (80-100); Mean Platelet Volume 9.4 fl (7.4-10.4); Monocytes Absolute Auto 1.4 K/mm3 (0.1-0.6); Monocytes Percent Auto 13.6 % (2.6-8.5); Neutrophils Absolute Auto 6.4 K/mm3 (1.3-6.7); Neutrophils Percent Auto 63.8 % (45.5-73.1); Platelet Count Result 166 k/mm3 (150-375); Red Blood Count 3.67 M/mm3 (4.6-6.20); Red Cell Distribution Width 12.3 % (11.5-14.5)
[2023-10-25 17:12] LABS: Alanine Aminotransferase 13 U/L (6-50); Albumin Level 4.1 g/dL (3.5-5.1); Alkaline Phosphatase 244 U/L (38-126); Anion Gap 11 mmol/L (8-16); Aspartate Amino Transferase 27 U/L (17-59); Bilirubin,Total 0.3 mg/dL (0.2-1.3); Blood Urea Nitrogen 22 mg/dL (9-20); Calcium 8.8 mg/dL (8.4-10.2); Carbon Dioxide 19 mmol/L (22-30); Chloride 109 mmol/L (98-107); Estimated CRCL calculation 22 ml/min; Estimated Glomerular Filt Rate 15; Glucose 122 mg/dL (65-110); Potassium 3.6 mmol/L (3.4-5.0); Sodium 139 mmol/L (137-145)
[2023-10-25 17:25] LABS: Magnesium 2.3 mg/dL (1.6-2.3); Phosphorus 4.4 mg/dL (2.5-4.5)
--- NOTE | 2023-10-25 18:48 | PC.NURSE ---
Attempted to teach crutches. Pt unable to comprehend due to learning disability.
[2023-10-25 19:23] VITALS: BP 170/108; PULSE 87; RESP 18; O2SAT 100
--- NOTE | 2023-10-25 19:59 | PM.IMHP ---
H&P: HPI History of Present Illness Date/Time: 10/25/23 19:59 Chief Complaint: knee swelling Narrative: This is a 33-year-old male with past medical history significant for chronic kidney disease, schizoaffective schizophrenia, seizure disorder, tuberous sclerosis. patient was brought to the emergency room after having a fall due to knee swelling and pain unable to bear weight on it. Most of the history has been obtained from mother who is at bedside. Preliminary workup was significant for x-ray of the knee showed tibial plateau fracture. EXAMINATION: XR knee RT min 4V DATE: 10/25/2023 14:47 INDICATION: Right knee pain, initial encounter TECHNIQUE: Four views of the right knee were obtained. COMPARISON: None. FINDINGS: There is an acute, traumatic, closed, nondisplaced fracture of the lateral tibial plateau. There is a large knee joint effusion. Soft tissues are unremarkable. IMPRESSION: 1. Acute fracture of the lateral tibial plateau with large knee joint effusion. Review of Systems Review of Systems: ROS unobtainable: Yes unobtainable due to medical condition ( Cognitive impairment) [facility] Past Medical History Medical History (Updated 10/26/23 @ 00:15 by Neetu Fontaine MD) Left renal mass Schizo-affective schizophrenia Seizure Tuberous sclerosis Surgical History Surgical History No pertinent past surgical history Family History Family History (Updated 10/25/23 @ 23:01 by Mei Chan RN) Mother Diabetes mellitus Social History Social History Smoking status: Never smoker Alcohol intake: never Substance use: never Substance use type: does not use Do You Feel Safe in your Home?: Yes Lack of Transportation: No Lack of Food: Never True Current Housing: I Have Housing Concerned About Future Housing: No Difficulty Paying Gas/Electric Bills: No Difficulty Paying for Meds: No Currently Unemployed: No Education: Grade School Difficulty w/ Childcare or Family Care: No Spiritual care concerns: Yes (diet restrictions) Meds Home Medications and Allergies Home Medications Medication Instructions Recorded Confirmed Type divalproex 500 mg tablet,delayed 500 mg PO BID 09/17/20 10/25/23 History release (Depakote) levetiracetam 1,000 mg tablet 1,000 mg PO Q12H 09/17/20 10/25/23 History oxcarbazepine 600 mg tablet 600 mg PO BID 09/17/20 10/25/23 History paliperidone 6 mg tablet,extended 6 mg PO DAILY 09/17/20 10/25/23 History release 24 hr levetiracetam 250 mg tablet 250 mg PO HS 10/25/23 10/25/23 History sodium bicarbonate 650 mg tablet 650 mg PO TID 10/25/23 10/25/23 History trazodone 50 mg tablet 50 mg PO HS 10/25/23 10/25/23 History Allergies Allergy/AdvReac Type Severity Reaction Status Date / Time haloperidol [From Haldol] Allergy Other Verified 12/06/21 11:03 Vital Signs Vital Signs - 24 hr 10/25/23 14:21 10/25/23 16:36 10/25/23 16:37 Pulse Rate 94 Respiratory Rate 18 Blood Pressure 141/105 H 166/114 H Pulse Oximetry 100 100 100 Oxygen Delivery Room Air 10/25/23 19:23 Pulse Rate 87 Respiratory Rate 18 Blood Pressure 170/108 H Pulse Oximetry 100 Oxygen Delivery Exam Narrative: patient is laying in a stretcher Const: General: comfortable, no acute distress, well developed, alert, awake and average body habitus Nutritional Appearance: average body habitus Orientation/consciousness: patient oriented x3 HENMT: Head: normal to inspection, normocephalic and atraumatic Ears: hearing grossly normal bilaterally Face/Nose/Sinus: normal facial exam Face and sinus: normal facial exam Eyes: General: appearance normal, both eyes and all related structures Pupils: Equal, round and reactive pupils present EOM: EOMs intact bilaterally Neck: Neck: full ROM, no lymphadenopathy and no JVD Thyr
[2023-10-25 20:40] VITALS: BP 148/105; PULSE 96; RESP 18; O2SAT 100
[2023-10-25 20:40] LABS: Appearance Urine Clear (Clear); Bacteria Urine None Seen /hpf; Bilirubin Urine Negative (Negative); Blood Urine Trace (Negative); Color Urine Yellow (Yellow); Glucose Urine UA Negative (Negative); Ketones Urine Negative (Negative); Leukocyte Esterase Ur Negative LEU/UL (Negative); Nitrate Urine Negative (Negative); Non Pathogenic Casts 0-2; Protein Urine 2+ mg/dL (Negative); RBC Urine 0-2 /hpf (0-2); Specific Grav Ur 1.007 (1.001-1.035); Squamous Epithelial Cell Urine None seen /hpf (Few); Urobilinogen Urine 0.2 mg/dL (<2.0); WBC Urine 0-5 /hpf
[2023-10-25 20:41] LABS: Add Urine Microscopic? YES
[2023-10-25] MEDS: MORPHINE SULFATE (*CRX) 2 MG/ML INJ IV PUSH (21:13)
--- NOTE | 2023-10-25 22:46 | ADMGEN ---
This patient, Jose Olivarez, was admitted to Medical Room 348-. Patient/family oriented to hospital policies and general routines including ID bracelet, bed and alarms, visiting hours, pain management, procedures, bathroom and other care routines, personal items, smoking policy, room service/diet, and visiting hours. Information on how to activate the Rapid Response Team has been discussed. Patient/Family are encouraged to report perceived risks to care and to ask questions if they do not understand what they are told or what they should do.
[2023-10-25 23:55] VITALS: BP 153/81; PULSE 88; RESP 18; TEMP 36.4; O2SAT 99; BMI 29.5
[2023-10-26] MEDS: OXcarbazepine 300 MG TABLET 900 MG PO ×2 (01:13→20:19)
[2023-10-26] MEDS: traZODone HCL 50 MG TABLET PO ×2 (01:13→20:20)
[2023-10-26] MEDS: levETIRAcetam 500 MG TABLET 1000 MG PO ×3 (01:15→20:20)
[2023-10-26 04:32] VITALS: BP 133/85; PULSE 105; RESP 16; TEMP 36.8; O2SAT 100
[2023-10-26] MEDS: SODIUM BICARBONATE TAB 650 MG TABLET PO ×3 (08:09→17:37)
[2023-10-26] MEDS: HYDROcodone/acetaminophen (*CRX) 5-325 MG TABLET 1 TAB PO (08:09)
[2023-10-26] MEDS: OXcarbazepine 300 MG TABLET 600 MG PO (08:11)
[2023-10-26] MEDS: DIVALPROEX SODIUM DR 250 MG TABEC 500 MG PO ×2 (08:11→17:37)
--- NOTE | 2023-10-26 08:11 | PCOTNOTE ---
Pt. awaiting ortho consultation and plan for treatment
--- NOTE | 2023-10-26 08:45 | PHAR ---
HOME MED: PALIPERIDONE ER 6 MG TABLET; TAKE 1 TABLET BY MOUTH EVERYDAY IN THE MORNING FOR 30 DAYS. VERIFIED BY PHARMACY.
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
--- NOTE | 2023-10-26 10:36 | PCPTNOTE ---
Pt has an ortho consultation pending. Awaiting for Ortho recommendations. Will follow.
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
[2023-10-26 14:00] VITALS: BP 119/75; PULSE 73; RESP 20; TEMP 37.1; O2SAT 95
[2023-10-26] MEDS: HEPARIN SODIUM 5,000 UNITS/ML VIAL 5000 UNITS SUB-Q ×2 (14:57→20:22)
[2023-10-26] MEDS: HYDROcodone/acetaminophen (*CRX) 10-325 MG TABLET 1 TAB PO ×2 (14:58→22:32)
[2023-10-26 20:11] VITALS: BP 126/77; PULSE 99; RESP 18; TEMP 37.2; O2SAT 97
[2023-10-26] MEDS: levETIRAcetam 250 MG TABLET PO (20:20)
[2023-10-27] MEDS: HYDROcodone/acetaminophen (*CRX) 10-325 MG TABLET 1 TAB PO ×3 (05:33→23:29)
[2023-10-27] MEDS: HEPARIN SODIUM 5,000 UNITS/ML VIAL 5000 UNITS SUB-Q ×3 (05:33→21:09)
[2023-10-27 06:00] VITALS: BP 100/72; PULSE 96; RESP 18; TEMP 36.7; O2SAT 100
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
[2023-10-27] MEDS: SODIUM BICARBONATE TAB 650 MG TABLET PO ×3 (08:28→17:19)
[2023-10-27] MEDS: levETIRAcetam 500 MG TABLET 1000 MG PO ×2 (08:28→21:09)
[2023-10-27] MEDS: DIVALPROEX SODIUM DR 250 MG TABEC 500 MG PO ×2 (08:28→17:19)
[2023-10-27] MEDS: OXcarbazepine 300 MG TABLET 600 MG PO (08:28)
[2023-10-27] MEDS: DOCUSATE SODIUM 100 MG CAPSULE PO ×2 (08:32→21:09)
[2023-10-27] MEDS: BISACODYL 5 MG TABLET EC PO (08:32)
[2023-10-27 13:48] VITALS: BP 124/72; PULSE 106; RESP 19; TEMP 37.2; O2SAT 95
--- NOTE | 2023-10-27 14:29 | PM.PNORT ---
Progress Note: A&P Assessment and Plan (1) Closed fracture of tibial plateau: Qualifiers: Encounter type: initial encounter Laterality: right Qualified Code(s): S82.141A - Displaced bicondylar fracture of right tibia, initial encounter for closed fracture Code(s): S82.143A - Displaced bicondylar fracture of unspecified tibia, initial encounter for closed fracture Status: Acute Assessment and Plan: Radiographs of the right knee reveal a nondisplaced lateral tibial plateau fracture with large right knee joint effusion. The fracture type and injury as well as radiographs discussed with the patient and family. Operative and nonoperative treatment options reviewed. Recommended non operative treatment. Risk of nonunion, malunion or late displacement discussed. Stiffness, pain and possible dysfunction of the joint discussed. Fracture precautions and activity restrictions reviewed. The patient verbalizes understanding. Still refusing aspiration of the right knee. Patient to continue physical therapy with nonweightbearing of the right lower extremity. Knee immobilizer in place. Knee immobilizer may be removed for hygiene purposes only. Nonweightbearing with crutches or walker. Patient may benefit from [facility] vs SNF. Social work involvement recommended given difficulties with home situation. Pain control. Ice. Elevation. Will continue to monitor while inpatient. Will follow-up with patient as an outpatient for new radiographs. (2) Schizo-affective schizophrenia: Code(s): F25.9 - Schizoaffective disorder, unspecified Status: Acute Plan Reviewed history, exam, radiographs and current labs with attending MD and covering surgeon, Dr. Leblanc, who agrees with current plan as indicated above. No further recommendations from Dr. Leblanc at this time. Subjective Subjective Date/Time Seen: 10/27/23 14:29 Interval history: Awake, alert. Pleasant today. Complaining on pain. Asking to see his mother. Review of Systems Review of Systems: No All systems reviewed & are unremarkable except as noted in HPI and below Exam Const: General: cooperative and average body habitus Nutritional Appearance: average body habitus Orientation/consciousness: patient oriented x3 Limitations: no limitations HENMT: Head: normal to inspection Ears: hearing grossly normal bilaterally Face/Nose/Sinus: Normal external nose present and normal facial exam Face and sinus: normal facial exam Mouth: Yes moist mucous membranes Teeth and gingiva: dentition normal Eyes: General: appearance normal, both eyes and all related structures Pupils: Equal, round and reactive pupils present EOM: EOMs intact bilaterally Neck: Neck: normal visual inspection Chest: Chest palpation & inspection: normal inspection of the chest Resp: Effort & Inspection: normal respiratory effort and able to speak in complete sentences Cardio: Jugular venous distension: no JVD Neuro: Cranial nerves: Yes Equal, round and reactive pupils present Extrem: Right lower extremity: knee Details: tenderness Location: of the patella, swelling (moderate knee joint effusion ), abnormal ROM Details: pain with active ROM during Details: in extension and in flexion, pain with passive ROM during Details: in extension and in flexion and with range as follows (deferred due to fracture ), Adam's Test Details: negative medially and laterally, ecchymosis and crepitus, lower leg Details: normal to inspection, ankle Details: normal to inspection and foot Details: normal capillary refill and vascular exam Details: dorsalis pedis pulse present Objective Data Vital Signs Vital Signs: Vital Signs - 24 hr 10/26/23 20:11 10/27/23 06:00 10/27/23 13:48 Temperature 37.2 C 36.7 C 37.2 C Pulse Rate 99 96 106 H Respiratory Rate 18 18 19 Blood Pressure 126/77 100/72 124/72 Pulse Oximetry 97 100 95 Intake/Output Intake/Output: Intake & Output 10/24/23 10/25/23 0
[2023-10-27] MEDS: OXcarbazepine 300 MG TABLET 900 MG PO (21:09)
[2023-10-27] MEDS: traZODone HCL 50 MG TABLET PO (21:09)
[2023-10-27] MEDS: levETIRAcetam 250 MG TABLET PO (21:10)
[2023-10-27 21:18] VITALS: BP 151/72; PULSE 93; RESP 18; TEMP 36.9; O2SAT 97
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
[2023-10-28] MEDS: CYCLOBENZAPRINE HCL 5 MG TABLET PO ×2 (05:27→20:44)
[2023-10-28] MEDS: HEPARIN SODIUM 5,000 UNITS/ML VIAL 5000 UNITS SUB-Q ×3 (05:27→20:43)
[2023-10-28] MEDS: HYDROcodone/acetaminophen (*CRX) 10-325 MG TABLET 1 TAB PO ×4 (05:28→20:43)
[2023-10-28 06:00] VITALS: BP 132/73; PULSE 107; RESP 18; TEMP 36.7; O2SAT 94
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
[2023-10-28] MEDS: DOCUSATE SODIUM 100 MG CAPSULE PO ×2 (09:17→20:44)
[2023-10-28] MEDS: OXcarbazepine 300 MG TABLET 600 MG PO (09:17)
[2023-10-28] MEDS: DIVALPROEX SODIUM DR 250 MG TABEC 500 MG PO ×2 (09:17→17:52)
[2023-10-28] MEDS: SODIUM BICARBONATE TAB 650 MG TABLET PO ×3 (09:18→17:52)
[2023-10-28] MEDS: BISACODYL 5 MG TABLET EC PO (09:18)
[2023-10-28] MEDS: levETIRAcetam 500 MG TABLET 1000 MG PO ×2 (09:18→20:44)
[2023-10-28 15:02] VITALS: BP 139/61; PULSE 98; RESP 14; TEMP 37.2; O2SAT 100
[2023-10-28 19:55] VITALS: O2SAT 99
[2023-10-28] MEDS: LORazepam INJ (*CRX) 2 MG/ML VIAL IV PUSH (20:43)
[2023-10-28] MEDS: levETIRAcetam 250 MG TABLET PO (20:44)
[2023-10-28] MEDS: traZODone HCL 50 MG TABLET PO (20:44)
[2023-10-28] MEDS: OXcarbazepine 300 MG TABLET 900 MG PO (20:44)
[2023-10-28 22:00] VITALS: BP 143/99; PULSE 92; RESP 21; TEMP 36.5; O2SAT 100
--- NOTE | 2023-10-29 03:26 | PC.NURSE ---
Daylight Savings Time For Daylight Savings Time Ending in the Fall - Clocks are moved back. For Daylight Savings Time Beginning in the Spring - Clocks are moved ahead. For [facility], the time of change occurs at 0200 hrs. Time is taken from the server systems administrator. This entry on the patient's chart recognizes the change in time reflected during documentation. Example: 2 entries for vital signs may be charted for 0200 hrs.
[2023-10-29] MEDS: HYDROcodone/acetaminophen (*CRX) 10-325 MG TABLET 1 TAB PO (05:06)
[2023-10-29] MEDS: CYCLOBENZAPRINE HCL 5 MG TABLET PO (05:06)
[2023-10-29] MEDS: HEPARIN SODIUM 5,000 UNITS/ML VIAL 5000 UNITS SUB-Q (05:06)
[2023-10-29 06:00] VITALS: BP 133/90; PULSE 101; RESP 20; TEMP 36.7; O2SAT 98
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
[2023-10-29] MEDS: BISACODYL 5 MG TABLET EC PO (09:45)
[2023-10-29] MEDS: SODIUM BICARBONATE TAB 650 MG TABLET PO ×3 (09:45→17:45)
[2023-10-29] MEDS: DOCUSATE SODIUM 100 MG CAPSULE PO ×2 (09:45→20:39)
[2023-10-29] MEDS: DIVALPROEX SODIUM DR 250 MG TABEC 500 MG PO ×2 (09:46→17:45)
[2023-10-29] MEDS: OXcarbazepine 300 MG TABLET 600 MG PO (09:46)
[2023-10-29] MEDS: levETIRAcetam 500 MG TABLET 1000 MG PO ×2 (09:46→20:39)
[2023-10-29 12:25] LABS: Basophils Percent Auto 0.4 % (0.2-1.2); Eosinophils Absolute Auto 0.4 K/mm3 (0-0.3); Eosinophils Percent Auto 5.2 % (0-4.4); Hematocrit 28.8 % (42.0-52.0); Immature Granulocyte Absolute 0.06 K/mm3 (0.00-0.031); Immature Granulocyte Percent A 0.8 % (0-0.5); Lymphocytes Absolute Auto 2.53 K/mm3 (0.9-3.2); Lymphocytes Percent Auto 32.2 % (18.3-44.2); Mean Corpuscular HGB Conc 31.3 g/dl (32-36); Mean Corpuscular Hemoglobin 27.6 pg (26-34); Mean Corpuscular Volume 88.3 fl (80-100); Monocytes Absolute Auto 1.2 K/mm3 (0.1-0.6); Monocytes Percent Auto 15.1 % (2.6-8.5); Neutrophils Absolute Auto 3.6 K/mm3 (1.3-6.7); Neutrophils Percent Auto 46.3 % (45.5-73.1); Platelet Count Result 216 k/mm3 (150-375); Red Blood Count 3.26 M/mm3 (4.6-6.20); Red Cell Distribution Width 12.1 % (11.5-14.5); White Blood Count 7.9 K/mm3 (4.5-10.0)
[2023-10-29 12:36] LABS: Alanine Aminotransferase 12 U/L (6-50); Albumin Level 3.7 g/dL (3.5-5.1); Alkaline Phosphatase 192 U/L (38-126); Anion Gap 7 mmol/L (8-16); Aspartate Amino Transferase 42 U/L (17-59); Bilirubin,Total 0.3 mg/dL (0.2-1.3); Blood Urea Nitrogen 29 mg/dL (9-20); Calcium 8.9 mg/dL (8.4-10.2); Carbon Dioxide 25 mmol/L (22-30); Chloride 107 mmol/L (98-107); Estimated CRCL calculation 21 ml/min; Estimated Glomerular Filt Rate 14; Glucose 134 mg/dL (65-110); Potassium 3.6 mmol/L (3.4-5.0); Sodium 139 mmol/L (137-145)
[2023-10-29] MEDS: polyethylene glycoL 3350 17 GM POWD.PACK PO (13:11)
[2023-10-29 14:03] VITALS: BP 153/85; PULSE 106; RESP 16; TEMP 36.7; O2SAT 97
[2023-10-29] MEDS: HYDROcodone/acetaminophen (*CRX) 5-325 MG TABLET 1 TAB PO (20:39)
[2023-10-29] MEDS: levETIRAcetam 250 MG TABLET PO (20:39)
[2023-10-29] MEDS: OXcarbazepine 300 MG TABLET 900 MG PO (20:40)
[2023-10-29 22:00] VITALS: BP 143/99; PULSE 95; RESP 20; TEMP 36.8; O2SAT 98
[2023-10-30] MEDS: HYDROcodone/acetaminophen (*CRX) 5-325 MG TABLET 1 TAB PO ×4 (03:22→21:01)
[2023-10-30 06:00] VITALS: BP 114/71; PULSE 91; RESP 21; TEMP 36.8; O2SAT 100
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
[2023-10-30 08:24] VITALS: O2SAT 98
--- NOTE | 2023-10-30 09:35 | PC.NURSE ---
arrived to pt's room to administer a.m meds and he did not have on an ID bracelet and IV saline lock was found on floor, call to admitting to get new ID bracelet will give meds once it arrives
[2023-10-30] MEDS: OXcarbazepine 300 MG TABLET 600 MG PO (10:24)
[2023-10-30] MEDS: levETIRAcetam 500 MG TABLET 1000 MG PO ×2 (10:24→21:01)
[2023-10-30] MEDS: DOCUSATE SODIUM 100 MG CAPSULE PO ×2 (10:24→20:58)
[2023-10-30] MEDS: DIVALPROEX SODIUM DR 250 MG TABEC 500 MG PO ×2 (10:24→17:47)
[2023-10-30] MEDS: ASPIRIN 81 MG ENTERIC TABLET PO (10:24)
[2023-10-30] MEDS: BISACODYL 5 MG TABLET EC PO (10:24)
[2023-10-30] MEDS: SODIUM BICARBONATE TAB 650 MG TABLET PO ×3 (10:25→17:47)
[2023-10-30 14:00] VITALS: BP 131/77; PULSE 98; RESP 16; TEMP 36.9; O2SAT 94
--- NOTE | 2023-10-30 14:45 | PC.NURSE ---
pt cooperative with care today and is calling appropriately, has been consciously trying to follow weight bearing status restrictions when ambulating to bathroom with wheeled walker
[2023-10-30] MEDS: OXcarbazepine 300 MG TABLET 900 MG PO (21:01)
[2023-10-30] MEDS: levETIRAcetam 250 MG TABLET PO (21:02)
[2023-10-30 22:00] VITALS: BP 140/78; PULSE 99; RESP 20; TEMP 36.7; O2SAT 98
[2023-10-31 06:00] VITALS: BP 112/71; PULSE 84; RESP 21; TEMP 36.4; O2SAT 100
[2023-10-31] MEDS: polyethylene glycoL 3350 17 GM POWD.PACK PO (09:23)
[2023-10-31] MEDS: DIVALPROEX SODIUM DR 250 MG TABEC 500 MG PO ×2 (09:23→17:38)
[2023-10-31] MEDS: levETIRAcetam 500 MG TABLET 1000 MG PO ×2 (09:23→20:41)
[2023-10-31] MEDS: DOCUSATE SODIUM 100 MG CAPSULE PO (09:23)
[2023-10-31] MEDS: OXcarbazepine 300 MG TABLET 600 MG PO (09:23)
[2023-10-31] MEDS: BISACODYL 5 MG TABLET EC PO (09:23)
[2023-10-31] MEDS: ASPIRIN 81 MG ENTERIC TABLET PO (09:24)
[2023-10-31] MEDS: SODIUM BICARBONATE TAB 650 MG TABLET PO ×3 (09:24→17:38)
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
[2023-10-31 14:57] VITALS: BP 132/65; PULSE 99; RESP 17; TEMP 36.9; O2SAT 93
[2023-10-31 19:35] VITALS: BP 126/86; PULSE 101; RESP 18; TEMP 36.5; O2SAT 98
[2023-10-31] MEDS: levETIRAcetam 250 MG TABLET PO (20:40)
[2023-10-31] MEDS: HYDROcodone/acetaminophen (*CRX) 5-325 MG TABLET 1 TAB PO (20:41)
[2023-10-31] MEDS: OXcarbazepine 300 MG TABLET 900 MG PO (20:41)
[2023-11-01] MEDS: HYDROcodone/acetaminophen (*CRX) 5-325 MG TABLET 1 TAB PO (04:46)
[2023-11-01 06:51] VITALS: BP 113/83; PULSE 91; RESP 18; TEMP 36.5; O2SAT 95
[2023-11-01] MEDS: OXcarbazepine 300 MG TABLET 600 MG PO (09:13)
[2023-11-01] MEDS: levETIRAcetam 500 MG TABLET 1000 MG PO (09:14)
[2023-11-01] MEDS: DOCUSATE SODIUM 100 MG CAPSULE PO (09:14)
[2023-11-01] MEDS: ASPIRIN 81 MG ENTERIC TABLET PO (09:14)
[2023-11-01] MEDS: DIVALPROEX SODIUM DR 250 MG TABEC 500 MG PO (09:14)
[2023-11-01] MEDS: SODIUM BICARBONATE TAB 650 MG TABLET PO ×2 (09:14→12:59)
[2023-11-01] MEDS: BISACODYL 5 MG TABLET EC PO (09:14)
[2023-11-01] MEDS: polyethylene glycoL 3350 17 GM POWD.PACK PO (09:16)
--- NOTE | 2023-11-01 10:53 | PM.DS ---
DS: Admitting Diagnosis Discharge Date 11/01/2023 Admitting Diagnosis closed fracture of tibial plateau, CKD, seizure, schizoaffective schizophrenia, tuberous sclerosis DS: Discharge Diagnosis Discharge Diagnosis (1) Closed fracture of tibial plateau: Qualifiers: Encounter type: initial encounter Laterality: right Qualified Code(s): S82.141A - Displaced bicondylar fracture of right tibia, initial encounter for closed fracture Code(s): S82.143A - Displaced bicondylar fracture of unspecified tibia, initial encounter for closed fracture Status: Acute (2) CKD (chronic kidney disease): Qualifiers: Chronic kidney disease stage: unspecified stage Qualified Code(s): N18.9 - Chronic kidney disease, unspecified Code(s): N18.9 - Chronic kidney disease, unspecified Status: Acute (3) Seizure: Code(s): R56.9 - Unspecified convulsions Status: Acute (4) Schizo-affective schizophrenia: Code(s): F25.9 - Schizoaffective disorder, unspecified Status: Acute (5) Tuberous sclerosis: Code(s): Q85.1 - Tuberous sclerosis Status: Acute DS: Summary Hospital Course Reason for hospitalization: This is a 33-year-old male with past medical history significant for chronic kidney disease, schizoaffective schizophrenia, seizure disorder, tuberous sclerosis. ? patient was brought to the emergency room after having a fall due to knee swelling and pain unable to bear weight on it.? Most of the history has been obtained from mother who is at bedside.? Preliminary workup was significant for x-ray of the knee showed tibial? plateau fracture. Hospital Course: patient was admitted to the hospital after a fall at home with right knee swelling and tibial plateau fracture. Orthopedics saw the patient recommended drainage right knee joint effusion for pain control but this was refused by patient and his mother. Patient was made nonweightbearing right lower extremity with knee immobilizer in place and crutches. Throughout stay patient has not been able to remember to comply with those instructions. He has been bearing weight despite nonweightbearing status and also jumped out of bed overnight/ early this morning with a resultant fall. Patient only complaining of pain to the right knee after fall. Repeat x-ray show mild displacement fracture location. Contacted Orthopedics office and Dr. Pfeiffer reviewed films and prior notes stated the patient could proceed with discharge with continue nonweightbearing status and knee immobilizer in place. Placement to [facility] in [place] after multiple other denials. Prescription for pain medicine was written. Status at Discharge Cognitive/behavioral status at discharge: Awake, alert, calm and agreeable Functional status at discharge: uses cane/walker ( crutches) Overall status at discharge: patient is not back to baseline Time Spent with Patient Time attestation: Total time spent providing and/or coordinating discharge services: 35 minutes Time spent: Greater than 30 minutes Exam Narrative: General: Alert, well developed, w ell nourished, areli ears stated age. H EENT: normocephali c, atraumatic. Muc ous membranes mois t. EOMI, PERRLA, b ilateral sclera an icteric, no conjun ctival injection. Neck supple withou t JVD, lymphadenop athy, or bruit. Re spiratory: clear t o auscultation ruma aterally. No rales / no rhonchi/ no w heezes. Cardiovasc ular: Regular rate and rhythm, parker l S1-S2 upon auscu ltation. No murmur s, rubs, or clicks . PMI is nondispla lon, capillary re- fill less than 3 s econd. Abdomen: So ft, round, no puls atile masses, prot rudent and non-ten yancy. No rebound, n o guarding. No CVA tenderness, no he patosplenomegaly.? Bowel sounds pres ent to all four qu adrants. Extremit ies: No cyanosis, clubbing. Edema pr esent to right kne e with small fluid collection superi or
[2023-11-01 12:06] LABS: SARS-CoV-2 RNA PCR Negative (Negative)
== END 2023-11-01 13:40 | DRG 342 ==
LOC: ANHED 21:01 → ANH3MEDSUR 21:17 → ANH3MED 21:57
PROVIDERS: Nurse Practitioner Acute Care; Physician Assistant; Admitting Provider Internal Medicine; Emergency Provider Physician Assistant; PCP Internal Medicine; Visit Provider Nurse Practitioner
DX: S82.141A Displaced bicondylar fracture of right tibia, initial encounter for closed fracture (principal); M25.461 Effusion, right knee; Z53.29 Procedure and treatment not carried out because of patient's decision for other reasons; W18.30XA Fall on same level, unspecified, initial encounter; N18.9 Chronic kidney disease, unspecified; F25.9 Schizoaffective disorder, unspecified; G40.909 Epilepsy, unspecified, not intractable, without status epilepticus; Q85.1 Tuberous sclerosis; Z11.52 Encounter for screening for COVID-19
CPT/HCPCS: 36415; 73560; 73564; 80053; 81001; 83735; 84100; 85025; 87635; 96372; 96374; 97110; 97116; 97161; 97166; 97530; 97535; 99285; A9270; G0378; G0379; J1644; J2060; J2270

== ENCOUNTER 2024-02-05 13:30 | Outpatient (RCR) | payer OTHER, SELFPAY ==
--- NOTE | 2024-01-11 12:00 | OPREHPOC ---
Outpatient Therapy Plan of Care This is a Multidisciplinary Plan of Care that may contain components documented by all disciplines (PT, OT, and ST.) PT Problem 1 PT Problem #1 Knowledge Deficit PT Goal 1 Goal *indep with HEP Target Visit 7 PT Problem 2 PT Problem #2 Pain PT Goal 1 Goal 1* pt report pain at worst of 5/10 2* pt report walking time of 15 minutes 3* with sleeping, awaken 1x/night due to knee pain Target Visit 7 PT Problem 3 PT Problem #3 Impaired Strength PT Goal 1 Goal increase strength of R LE, to improve mobility and activity 1* pt perform 20 reps of mat strengthening exercises 2* single leg standing x 8 seconds Target Visit 7 PT Problem 4 PT Problem #4 Impaired Functional Mobility PT Goal 1 Goal 1* 5 reps sit/stand time of 20 seconds 2* 2 minute walking test distance of 500' 3* up/down 4 steps without hand railing, indep Target Visit 7
--- NOTE | 2024-01-11 12:00 | PTOPEVAL1 ---
Assessment and note entered by Augusta Clark, PT Evaluation Information Assessment Status Evaluation Diagnosis R lateral tibial plateau fracture Onset October 23, 2023 Subjective Information after injury and fracture- used walker and R NWB; saw Dr Leblanc initially and no longer following with him; momCornelio, answered questions and assisted with communication, due to pt not speaking Lao; activity: living with his mom, in 2nd floor apartment; no longer using the walker; uses knee immobilizer most of the time except not with sleeping; mom does all home tasks; is not doing any leg exercises at home; GOAL: walk and get out of home, go shopping with mom; Reported Pain Level Pain Score Self Report Additional Pain Score Comments pain range in the past week 7-03/30; medial and lateral knee; take tylenol; use ice PRN; reported tolerances: walking less 5 minutes; sleeping- awaken 2-3 x/night due to knee pain Assessment PT Clinical Summary Jose has the diagnosis of s/p R tibial plateau fracture in October. Initially was NWB and used walker--now not using walker and WBAT. Reports decreased walking and sleeping tolerances due to knee pain and weakness. Mom, Cornelio, was present during eval and assisted with communication and interpretation with pt--he speaks little Lao. His medial history includes seizures, schizophrenia and won behaviors. With the evaluation: ROM of R knee is WNL, with reports of pain with flexion; decreased strength of R hip and knee, is not able to single leg stand 5 reps sit/stand time of 25 seconds and 2 minute walking test distance of 420' with increased pain. Skilled PT services are indicated for modalities to decrease pain, therapeutic exercises to increase strength and improve mobility with education for HEP. Plan of Care Interventions Elect
--- NOTE | 2024-01-16 08:00 | PCPTNOTE ---
Cancelled, transportation issue.
--- NOTE | 2024-01-18 10:08 | PCPTNOTE ---
Patient now show for todays appt.
--- NOTE | 2024-02-05 14:12 | PTOPDC ---
Assessment and note entered by Augusta Clark, PT Discharge Report Assessment Status Discharge Diagnosis R lateral tibial plateau fracture Onset October 23, 2023 Subjective Information doing the exercises at home; feel ready to be finished with therapy; dad assisted with interpretation for son; Reported Pain Level Pain Score Self Report Additional Pain Score Comments no pain in R leg; in the past week, 0-2/10; sit to stand increase pain. walk tolerance 15-20 minutes then have to sit due to kidney problem; no problems with sleeping; Assessment PT Clinical Summary Jose has received 6 PT sessions. Compared to the initial evaluation: pain decreased from 7-8/10 to 0-2/10; reported walking from 5 minutes to 15-20 minutes; sleeping without awakening from pain now; increase strength of R hip and knee; 2 minute walking distance is same at 420', with slight pain increase to 2/10 with walking; 5 reps sit/stand time improved from 25 to 22 seconds; able to go up/down 4 stairs without use of hand railing. Education completed for HEP and positioning of knee. The goals were partially met. Discharge PT services. He is to continue with his HEP. Plan of Care PT Services Indicated No
== END 2024-02-05 14:56 | disposition home or self-care (01) ==
LOC: ANHPT 13:30
PROVIDERS: PCP Internal Medicine; Visit Provider Internal Medicine
DX: T14.8XXD Other injury of unspecified body region, subsequent encounter (principal)
CPT/HCPCS: 97016; 97110; 97161; 97530; 99199

== ENCOUNTER 2024-03-26 11:09 | Outpatient (CLI) | payer OTHER, SELFPAY ==
--- NOTE | ~2024-03-26 | XR_ITS ---
[id number] Ordering provider: Aaron Julien MD History: . right knee pain, FOLLOW UP FRACTURE . Comparison: November 01, 2023 FINDINGS: BONES: Healing fracture in the lateral tibial plateau with no change in alignment compared to rosyu s study. JOINT SPACES: Normal. SOFT TISSUES: Normal. IMPRESSION: Healing fracture in the lateral tibial plateau. Reviewed, dictated and finalized at location A.
== END 2024-03-26 11:10 | disposition home or self-care (01) ==
PROVIDERS: PCP Internal Medicine; Visit Provider Internal Medicine
DX: S82.141D Displaced bicondylar fracture of right tibia, subsequent encounter for closed fracture with routine healing (principal); X58.XXXD Exposure to other specified factors, subsequent encounter
CPT/HCPCS: 73560

== ENCOUNTER 2024-05-22 09:45 | Outpatient (RCR) | payer OTHER, SELFPAY ==
--- NOTE | 2024-04-10 15:11 | PCPTNOTE ---
pt did not show for today PT evaluation.
--- NOTE | 2024-05-01 11:44 | OPREHPOC ---
Outpatient Therapy Plan of Care This is a Multidisciplinary Plan of Care that may contain components documented by all disciplines (PT, OT, and ST.) PT Problem 1 PT Problem #1 Knowledge Deficit PT Goal 1 Goal / Goal Update *indep with HEP Target Visit 6 PT Problem 2 PT Problem #2 Pain PT Goal 1 Goal / Goal Update 1* pt report pain at worst R knee of 5/10 2* transfer sit/stand without pain increase Target Visit 6 PT Problem 3 PT Problem #3 Impaired Strength PT Goal 1 Goal / Goal Update increase strength of R hip and knee musculature for support to knee joint 1* pt perform 20 reps of mat strengthening exercises 2* 2 minute walking test distance of 450' Target Visit 6
--- NOTE | 2024-05-01 11:44 | PTOPEVAL1 ---
Assessment and note entered by Augusta Clark PT Evaluation Information Assessment Status Evaluation ICD-10 Condition Codes (PT) M25.561 Onset February 2024 Subjective Information gradually more pain in R Knee; had PT here in the past for the same--is doing some of the exercises from previous therapy; x ray of knee negative; Activity: not using assistive device; live at home with his parents; does not have a knee brace; not very active- watch TV and parents do home tasks; Goal: have less pain in knee; Reported Pain Level Pain Score Self Report Additional Pain Score Comments pain range in the past week 6-02/27 pain increase with sit/stand, getting on/off the floor and walking 2-3 minutes decrease pain with sitting, resting; Assessment PT Clinical Summary Jose has the diagnosis of R knee pain. His history includes R tibial plateau fracture- non surgical. He has limited Kinyarwanda, and father was present at [facility] and interpreted for pt. With the evaluation: R knee active ROM is 0-120', with flexion increasing his pain; 2 minute walking test distance of 390'; decrease strength of R hip and knee and tightness of hamstring. Skilled PT services are indicated to increase LE strength and mobility skills, modalities PRN for pain and education for HEP. He may benefit from a knee support brace. Plan of Care Interventions Electrical Stimulation,Gait Training,Hot Pack/Cold Pack,Manual Therapy,Neuro Re-education,Patient/ Caregiver Education,Therapeutic Activities, Therapeutic Exercise,Ultrasound,Other Other Interventions taping PT Services Indicated Yes Treatment Frequency and 1-2x/wk for 6 visits Duration These treatments will address the objective and functional deficits as defined above. The patient will be advanced safely and appropriately in order for the patient to progress towards his/her prior level of function. Additional exercises will be introduced and as well as a comprehensive home exercise program upon discharge, if needed, ?to ensure carryover of functional gains achieved in the clinic. This treatment plan has been reviewed and agreement upon by the patient.
--- NOTE | 2024-05-29 10:11 | PCPTNOTE ---
Called and canceled due to schedule conflict. AKS
--- NOTE | 2024-06-05 10:35 | PCPTNOTE ---
pt did not show for today's reevaluation appt. Called but not able to leave voice message---- mailbox full.
--- NOTE | 2024-06-21 14:20 | PTOPDC ---
Assessment and note entered by Augusta Clark, PT Discharge Report Assessment Status Discharge - Pt Not Present ICD-10 Condition Codes (PT) M25.561 Onset February 2024 Subjective Information pt was not seen this date Assessment PT Clinical Summary Jose received 4 PT sessions, from May 01 to May 22 he did not show for one and called/canceled one appointment. Discharge PT due to not attending. The goals were not assessed. Plan of Care PT Services Indicated No
== END 2024-06-21 16:38 | disposition home or self-care (01) ==
LOC: ANHPT 09:45
PROVIDERS: PCP Internal Medicine; Visit Provider Internal Medicine
DX: M25.561 Pain in right knee (principal)
CPT/HCPCS: 97014; 97110; 97161; 97530; G0283

== ENCOUNTER 2024-07-09 14:45 | Outpatient (CLI) | payer OTHER, SELFPAY ==
[2024-07-09 15:27] LABS: Albumin Level 4.2 g/dL (3.5-5.1); Anion Gap 13 mmol/L (4-12); Blood Urea Nitrogen 39 mg/dL (9-20); Calcium 8.5 mg/dL (8.4-10.2); Carbon Dioxide 18 mmol/L (22-30); Chloride 110 mmol/L (98-107); Estimated Glomerular Filt Rate 11; Glucose 117 mg/dL (65-110); Phosphorus 4.2 mg/dL (2.5-4.5); Potassium 3.8 mmol/L (3.4-5.0); Sodium 141 mmol/L (137-145)
[2024-07-09 15:37] LABS: Creatinine Urine 56.1 mg/dL; Total Protein Urine Random 146 mg/dL
[2024-07-09 15:39] LABS: Parathyroid Intact 790.3 pg/mL (14.5-75.2)
[2024-07-09 15:59] LABS: Vitamin D 25 Hydroxy 20.3 ng/mL
== END 2024-07-09 14:46 | disposition home or self-care (01) ==
LOC: ANHLAB 14:46
PROVIDERS: PCP Internal Medicine; Visit Provider Internal Medicine Nephrology
DX: N18.4 Chronic kidney disease, stage 4 (severe) (principal); Q85.1 Tuberous sclerosis
CPT/HCPCS: 36415; 80069; 82306; 82570; 83970; 84156

== ENCOUNTER 2024-10-16 14:33 | Outpatient (CLI) | payer OTHER, SELFPAY ==
[2024-10-16 15:18] LABS: Albumin Level 3.8 g/dL (3.5-5.1); Anion Gap 13 mmol/L (4-12); Blood Urea Nitrogen 47 mg/dL (9-20); Calcium 8.2 mg/dL (8.4-10.2); Carbon Dioxide 18 mmol/L (22-30); Chloride 112 mmol/L (98-107); Estimated Glomerular Filt Rate 11; Glucose 84 mg/dL (65-110); Phosphorus 3.1 mg/dL (2.5-4.5); Potassium 4.4 mmol/L (3.4-5.0); Sodium 143 mmol/L (137-145)
[2024-10-16 15:37] LABS: Vitamin D 25 Hydroxy 23.2 ng/mL
--- OUTSIDE RECORDS SUMMARY | 2024-10-16 16:50 | XMS_ITS | Clinical Summary ---
Author Organization [facility] Address [address] [place] [id number] Phone Care Team Providers Care Sewage Plant Operator Name Role Phone Aaron Julien MD Primary Care Provider + Allergies Active Allergy Reactions Criticality Noted Date Comments Haloperidol Other (see comments) High 02/03/2020 Other reaction(s): Other Neck stiffness Medications Medication Sig Dispensed Refills Start Date End Date Status acetaminophen (TYLENOL 8 HOUR) 650 MG 8 hr tablet Arthritis Pain Relief (acetaminophen) ER 650 mg tablet,extend release TAKE 1 TABLET BY MOUTH EVERY 8 HOURS NEEDED Active cyclobenzaprine (FLEXERIL) 5 MG tablet cyclobenzaprine 5 mg tablet TAKE 1 TABLET BY MOUTH 3 TIMES A DAY NEEDED Active divalproex (DEPAKOTE) 250 MG 24 hr tablet Take 500 mg by mouth 2 (two) times a day 04/13/2021 Active levETIRAcetam (KEPPRA) 250 MG tablet TAKE 5 TABLETS (1,250 MG TOTAL) BY MOUTH 2 (TWO) TIMES A DAY. 01/25/2021 Active LORazepam (ATIVAN) 1 MG tablet lorazepam 1 mg tablet 03/20/2020 Ac tive meloxicam (MOBIC) 15 MG tablet meloxicam 15 mg tablet TAKE 1 TABLET BY MOUTH EVERY DAY WITH MEALS Active OXcarbazepine (TRILEPTAL) 600 MG tablet 03/28/2021 Active paliperidone (INVEGA) 6 MG 24 hr tablet 04/16/2021 Active silver sulfADIAZINE (SILVADENE) 1 % cream USE 1 APPLICATION AFTER BATHING TO INJURED SKIN EXTERNALLY ONCE A DAY 04/07/2021 Active Active Problems Problem Noted Date Diagnosed Date Seizure disorder 04/22/2021 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 Overweight 04/22/2021 Hypertension 04/22/2021 Chronic kidney disease 04/22/2021 Bipolar disorder 02/03/2020 Family History Medical History Relation Comments Kidney disease Neg Hx Social History Tobacco Use Types Packs/Day Years Used Date Smoking Tobacco: Never Smokeless Tobacco: Never Alcohol Use Standard Drinks/Week Comments Never 0 (1 standard drink = 0.6 oz pur e alcohol) Sex and Gender Information Value Date Recorded Sex Assigned at Not on file Gender Identity Not on file Sexual Orientation Not on file Last Filed Vital Signs Vital Sign Reading Time Taken Comments Blood Pressure 130/70 04/22/2021 2:34 PM CDT Pulse - - Temperature 36.6 C (97.9 F) 04/22/2021 2:34 PM CDT Respiratory Rate 18 04/22/2021 2:34 PM CDT Oxygen Saturation - - Inhaled Oxygen Concentration - - Weight 93 kg (205 lb) 04/22/2021 2:34 PM CDT Height 180.3 cm (5' 11 ) 04/22/2021 2:34 PM CDT Body Mass Index 28.59 04/22/2021 2:34 PM CDT Plan of Treatment Health Maintenance Due Date Last Done Comments Influenza Vaccine (#1) 2024 Care Teams Sewage Plant Operator Relationship Specialty Start Date End Date Aaron Julien MD [address] [place] [address] PCP - General Family Medicine 04/09/21
--- OUTSIDE RECORDS SUMMARY | 2024-10-16 16:50 | XMS_ITS ---
[facility] Organization [facility] Address [address] [place] [address] Care Team Providers Care Organisational Psychologist Name Role Phone Aaron Julien Primary Care Provider [phone] Allergies Allergen (clinical drug ingredient) Drug/Non Drug Allergy documented on EMR Reaction Allergy Type Onset Date Status Haldol Muscle Spasms Drug Allergy Act kendall REASON FOR VISIT 2 Month F/U, coughing and sore throat since yesterday Medications Medication SIG (Take, Route, Frequency, Duration) Notes Start Date End Date Status Promethazine-DM 6.25-15 MG/5ML 5 mL as needed Orally every 6 hrs for 10 days 10/02/2024 10/12/2024 Active Blood Pressure Monitor - DAILY EXTERNALL Y DIRECTED 11/11/2021 Active Paliperidone ER 6 MG 1 tablet in the mor susan Orally Once a day Active levETIRAcetam 1000 MG TAKE 1 TABLET BY M OUTH EVERY 12 HOURS Active Cyclobenzaprine HCl 10 MG 1 tablet at be dtime as needed Orally twice a day Active traZODone HCl 50 MG 1 tablet at bedtime as needed Orally Once a day for 30 days Active Acetaminophen 500 MG two tablets Orally three times daily As needed PAIN 12/10/2021 Active levETIRAcetam 250 MG 1 tablet Orally dian ry 12 hrs Active Escitalopram Oxalate 5 MG 1 tablet Orall y Once a day Active Sodium Bicarbonate 650 MG TAKE 1 TABLET BY MOUTH THREE TIMES A DAY Active Triamcinolone Acetonide 0.1 % 1 application Externally twice a day 06/08/2022 Active diazePAM 5 MG 1 tablet as needed Orally Once a day As needed SEVERE ANXIETY 10/18/2023 Active Divalproex Sodium ER 500 MG 1 tablet Ora lly three times a day Active OXcarbazepine 600 MG 1.5 tablet Orally T wice a day Active Social History Tobacco Use: Social History Observation Description Date Details (start date - stop date) Never Smoker NA - NA Sex Assigned At : Social History Observation Description Sex Assigned At Male Tobacco Control (Standard) Question Answer Notes Tobacco use: Nonsmoker Vital Signs Blood pressure systolic 122 mm Hg 10/02/19 25 Blood pressure diastolic 84 mm Hg 025 Heart Rate 120 /min 10/02/2024 Respiratory Rate 16 /min 10/02/2024 Height 71 in 10/02/2024 Weight 196.2 lbs 10/02/2024 BMI 27.36 kg/m2 10/02/2024 Oximetry 98 % 10/02/2024 Encounters Encounter Location Date Provider Diagnosis [address] [place] [address] 10/02/2024 Aaron Julien Viral URI with cough J06.9 ; Hypertension, unspecified type I10 ; Chronic kidney disease, stage 3b N18.32 ; Tuberous 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 DISCUSSED THAT FLU AND COVID TESTS MAY BE NEGATIVE ON DAYS 1-3. IF NOT IMPROVING OR IF WORSE, HE WILL GO TO ED OR URGENT CARE FOR RAPID FLU A/B AND COVID SCREENING. 10/02/2024 Hypertension, unspecified type (ICD-10 - I10) DOING WELL WITH WEIGHT LOSS. CONTINUE TO MONITOR AT HOME. 10/02/2024 Chronic kidney disease, stage 3b (ICD-10 - N18.32) 10/02/2024 Tuberous sclerosis (ICD-10 - Q85.1) 10/02/2024 Seizure disorder (ICD-10 - G40.909) 10/02/2024 Bipolar 1 disorder (ICD-10 - F31.9) Plan Of Treatment Medication Medication Name Sig Start Date Stop Date Notes Promethazine-DM 6.25-15 MG/5ML 5 mL as n eeded Orally every 6 hrs for 10 days 10/02/2024 10/12/2024 Paliperidone ER 6 MG 1 tablet in the mor ussan Orally Once a day levETIRAcetam 1000 MG TAKE 1 TABLET BY M OUTH EVERY 12 HOURS Escitalopram Oxalate 5 MG 1 tablet Orally Once a day Sodium Bicarbonate 650 MG TAKE 1 TABLET BY MOUTH THREE TIMES A DAY Divalproex Sodium ER 500 MG 1 tablet Ora lly three times a day OXcarbazepine 600 MG 1.5 tablet Orally T wice a day Next Appt Details Follow Up: 3 Months, Reason: HBP, CKD Progress Notes * Jose OLIVAREZ JrDOB:1990 (34 yo M)Acc No.[id number]:10/02/2024 Progress Notes Patient: A Jose FAULKNER Jr Provider: Lucia Julien :1990 A ge:34 Y S ex:Male Date:10/02/2024 Address:[address] [place] [address] [place], [place] [id number] Subjective: * Chief Complaints: * 2 Month F/U, coughing and sore throat since yesterday * HPI: D epression Screening: PHQ-9 L ittle interest or pleasure in doing things?Not at all F eeling down, depressed, or hopeless N ot at all T rouble falling or staying asleep, or sleeping too much N ot at all F eeling tired or having little energy N ot at all P oor appetite or overeating N ot at all F eeling bad about yourself or that you are a failure, or have let yourself or your family down N ot at all T rouble concentrating on things, such as reading the newspaper or watching television N ot at all M oving or speaking so slowly that other people could have noticed; or the opposite, being so fidgety or restless that you have been moving around a lot more than usual N ot at all T houghts that you would be better off or of hurting yourself in some way N ot at all T otal Score 0 S creening: Lawrence Suicide Severity Rating Scale (LF) D o you want to initiate with S creener form 1 . Wish to be : Have you wished you were or wished you could go to sleep and not wake up? N o 2 . Suicidal Thoughts: Have you actually had any thoughts of killing yourself? N o 6 . Suicide Behavior Question: Have you ever done anything,started to do anything, or prepared to end your life? N o I nterpretation: L ow Risk C SSRS Interpretation and Follow Up Plan: CSSRS Interpretation and Follow Up Plan C SSRS Screen documented using SF Y es R isk Disposition from L ow - No Follow Up Plan Required F ollow Up Plan N o Follow Up Plan required at this time. I nterim History: COUGH AND SORE THROAT. COUGH IS NONPRODUCTIVE. NO FEVER. HAS NOT CHECKED IT. SISTER WAS ILL WITH SIMILAR BUT WITH HIGH FEVER AND BODY ACHES. HE HAS ONLY COUGH AND FATIGUE AND ST. * ROS: B asic ROS: Admits N ose/Throat problems. A dmits C ough. D tiffany S hortness of breath. * Medical History: * Surgical History: Evelyn allen Past Surgical History * Hospitalization/Major Diagno stic Procedure: a [facility] [place] 08/2020Gout 09/2023 * Family History: F ather: alive. M other: alive. 1 sister(s) - healthy. . * Social History: P rimary Social History: L iving Arrangement L iving Arrangement: D ependent Living L iving with: P maria e(s) I s this a supportive environment? Y es Alcohol Use A lcohol Use Frequency: N ever Illicit Substance Usage I llicit Substance Usage: N o Employment Status E mployment Status: U nemployed T obacco Use: T obacco Control (Standard) T obacco use: N onsmoker * Medications: T akingBlood Pressure Monitor - Device DAILY EXTERNALLY DIRECTED levETIRAcetam 1000 MG Tablet TAKE 1 TABLET BY MOUTH EVERY 12 HOURS Cyclobenzaprine HCl 10 MG Tablet 1 tablet at bedtime as needed Orally twice a day Triamcinolone Acetonide 0.1 % Cream 1 application Externally twice a day diazePAM 5 MG Tablet 1 tablet as needed Orally Once a day As needed SEVERE ANXIETYtraZODone HCl 50 MG Tablet 1 tablet at bedtime as needed Orally Once a day Acetaminophen 500 MG Tablet two tablets Orally three times daily As needed PAINlevETIRAcetam 250 MG Tablet 1 tablet Orally every 12 hrs Divalproex Sodium ER 500 MG Tablet Extended Release 24 Hour 1 tablet Orally three times a day OXcarbazepine 600 MG Tablet 1.5 tablet Orally Twice a day Sodium Bicarbonate 650 MG Tablet TAKE 1 TABLET BY MOUTH THREE TIMES A DAY Escitalopram Oxalate 5 MG Tablet 1 tablet Orally Once a day Paliperidone ER 6 MG Tablet Extended Release 24 Hour 1 tablet in the morning Orally Once a day Taking Blood Pressure Monitor - Device DAILY EXTERNALLY DIRECTED Taking levETIRAcetam 1000 MG Tablet TAKE 1 TABLET BY MOUTH EVERY 12 HOURS Taking Cyclobenzaprine HCl 10 MG Tablet 1 tablet at bedtime as needed Orally twice a day Taking Triamcinolone Acetonide 0.1 % Cream 1 application Externally twice a day Taking diazePAM 5 MG Tablet 1 tablet as needed Orally Once a day As needed SEVERE ANXIETYTaking traZODone HCl 50 MG Tablet 1 tablet at bedtime as needed Orally Once a day Taking Acetaminophen 500 MG Tablet two tablets Orally three times daily As needed PAINTaking levETIRAcetam 250 MG Tablet 1 tablet Orally every 12 hrs Taking Divalproex Sodium ER 500 MG Tablet Extended Release 24 Hour 1 tablet Orally three times a day Taking OXcarbazepine 600 MG Tablet 1.5 tablet Orally Twice a day Taking Sodium Bicarbonate 650 MG Tablet TAKE 1 TABLET BY MOUTH THREE TIMES A DAY Taking Escitalopram Oxalate 5 MG Tablet 1 tablet Orally Once a day Taking Paliperidone ER 6 MG Tablet Extended Release 24 Hour 1 tablet in the morning Orally Once a day * Allergies: H aldol: Muscle Spasms - Side Effectsno[Allergies Verified] Objective: * Vitals: I nitials: dt, Wt:196.2, Ht: 71, BMI:27.36, BP:122/84, HR:120, Oxygen sat %:98, RR:16. * Examination: G eneral Examination: GENERAL APPEARANCE: w ell developed, well nourished, in no acute distress. ORAL CAVITY: M ILD POSTERIOR ERYTHEMA WITH CLEAR PND. NECK/THYROID: n loretta supple, ANTWAN, no cervical lymphadenopathy, no thyromegaly. HEART: r egular rate and rhythm, no murmurs. LUNGS: r espirations regular and easy, clear to auscultation bilaterally. EXTREMITIES: n o clubbing, cyanosis, or edema. ? Assessment: * Assessment: 1. V iral URI with cough - J06.9 (Primary) 2 . H ypertension, unspecified type - I10 3 . C hronic kidney disease, stage 3b - N18.32 4 .?Tuberous sclerosis - Q85.1 5 . S eizure disorder - G40.909 6 .?Bipolar 1 disorder - F31.9 Plan: * Treatment: 2. H ypertension, unspecified type Clinical Notes: DOING WELL WITH WEIGHT LOSS. CONTINUE TO MONITOR AT HOME. 3. C hronic kidney disease, stage 3b Continue Sodium Bicarbonate Tablet, 650 MG, TAKE 1 TABLET BY MOUTH THREE TIMES A DAY. 4. S eizure disorder Continue levETIRAcetam Tablet, 1000 MG, TAKE 1 TABLET BY MOUTH EVERY 12 HOURS. 5. B ipolar 1 disorder Continue Divalproex Sodium ER Tablet Extended Release 24 Hour, 500 MG, 1 tablet, Orally, three times a day; C ontinue Escitalopram Oxalate Tablet, 5 MG, 1 tablet, Orally, Once a day; C ontinue Paliperidone ER Tablet Extended Release 24 Hour, 6 MG, 1 tablet in the morning, Orally, Once a day. 6. O thers Continue OXcarbazepine Tablet, 600 MG, 1.5 tablet, Orally, Twice a day. * Recommended Wellness and Pre vention Guidelines: * S tatus A elt L ast Done N ext Due A ction Taken N ONCOMPLIANT A lcohol use screening - 0 10/02/2024 - N ONCOMPLIANT B P control in HTN (140/90) 1 10/11/2020 0 10/02/2024 - N ONCOMPLIANT I nfluenza vaccine (high risk) - 0 10/02/2024 - * Procedure Codes: * Follow Up: 3 Months (Reason: HBP, CKD) * * DELIVERY AIDE Sign off status: Completed true * Provider: Lucia Julien Date: 0 10/02/2024 Generated for Arlene walton/Cathleen/eTransmitting on: 0 10/16/2024 04:50 PM TRAY DELIVERY AIDE History and Physical Notes * HPI (History of Present Illness) Category Sub-Category Detail Notes Category Not es Depression Screening PHQ-9 Little inte rest or pleasure in doing things: Not at all Feeling down, depressed, or hopeless: No t at all Trouble falling or staying asleep, or sl eeping too much: Not at all Feeling tired or having little energy: N ot at all Poor appetite or overeating: Not at all Feeling bad about yourself o r that you are a failure, or have let yourself or your family down: Not at all Trouble concentrating on thi ngs, such as reading the newspaper or watching television: Not at all Moving or speaking so slowly that other people could have noticed; or the opposite, being so fidgety or restless that you have been moving around a lot more than usual: Not at all Thoughts that you would be b mishel off or of hurting yourself in some way: Not at all Total Score: 0 Screening Lawrence Suicide Sev erity Rating Scale (LF) Do you want to initiate with: Screener form 1. Wish to be : Have you wished you were or wished you could go to sleep and not wake up?: No 2. Suicidal Thoughts: Have you actually had any thoughts of killing yourself?: No 6. Suicide Behavior Question: Have you ever done anything,started to do anything, or prepared to end your life?: No Interpretation:: Low Risk CSSRS Interpretation and Follow Up Plan CSSRS Interpretation and Follow Up Plan CSSRS Screen documented using SF: Yes Risk Disposition from SF: Low - No Follo w Up Plan Required Follow Up Plan: No Follow Up Plan requir ed at this time. Examination Category Sub-Category Detail Notes Category Not es General Examination GENERAL APPEARANCE: well dev eloped, well nourished, in no acute distress NECK/THYROID: neck supple, ANTWAN, n o cervical lymphadenopathy, no thyromegaly HEART: regular rate and rhy thm, no murmurs LUNGS: respirations regular and easy, clear to auscultation bilaterally EXTREMITIES: no clubbing, cyanosi s, or edema ORAL CAVITY: MILD POSTERIOR ERYTH CARLY WITH CLEAR PND
--- OUTSIDE RECORDS SUMMARY | 2024-10-16 16:50 | XMS_ITS | Continuity of Care Document ---
Author Organization [facility] Address [address] [facility] ([place], [place]) [place] [address] Phone Care Team Providers Care Header Up Name Role Phone Nixon Draper MD Unavailable Unavailable Allergies, Adverse Reactions, Alerts Substance Reaction Status Criticality HALOPERIDOL LACTATE Active No Infor mation haloperidol Active No Information Medications Medication Instructions Dosage Effective Dates (start - stop) Status Comments amoxicillin 875 mg tablet take 1 tablet by oral route every 12 hours 875 MG - Active fluticasone propionate 50 mcg/actuation nasal spray,suspension inhale 2 spray by intranasal route every day in each nostril 100 MCG - Active oxcarbazepine 600 mg tablet 1 tab by mouth every morning and 1.5 tab in evening - Active Depakote 250 mg tablet,delayed release take 2 tablet by oral route 2 times every day 500 MG - Active Keppra 500 mg tablet take 2 tablet by or al route 2 times every day 1000 MG - Active Ativan 1 mg tablet take 1 tablet by ora l route 2 times every day as needed 1 MG - Active paliperidone ER 6 mg tablet,extended release 24 hr take 1 tablet by oral route every day in the morning 6 MG - Active Procedures Procedure Date OFFICE/OUTPATIENT VISIT, EST OFFICE/OUTPATIENT VISIT, EST OFFICE/OUTPATIENT VISIT, EST OFFICE/OUTPATIENT VISIT, EST PREV VISIT, NEW, AGE 18-39 OFFICE/OUTPATIENT VISIT, NEW Advance Directives Directive Yes / No Effective Date File Name No Information Encounters Encounter Description Practice Location Reason(s) For Visit Diagnoses Date Provider Providers Copied on Encounter OFFICE/OUTPA TIENT VISIT, [facility], [address], [place], [place], [id number], [place] tel:[phone] [facility] toothache1 (chief complaint) HLP (chief complaint) Atypical facial painHyperlipidemia Sep-0 8-202 0 Baron [address]. [address], [place], [place], [id number] , [place]. tel:[phone] Referring Provider: Nixon Draper, [address], [place], [place], [id number]. tel:[phone] OFFICE/OUTPA TIENT VISIT, [facility], [address], [place], [place], [address], [place] tel:[phone] [facility] facial pian1 (chief complaint) vision (chief complaint) Bilateral cystoid macular degenerationAtypica l facial pain Feb-2 0 0 Baron [address]. [address], [place], [place], [address] , [place]. tel:[phone] Referring Provider: Leonel [address], [place], [place], [address]. tel:[phone] OFFICE/OUTPA TIENT VISIT, [facility], [address], [place], [place], [address], [place] tel:[phone] [facility] vision1 (chief complaint) epilepsy1 (chief complaint) sinus (chief complaint) Sudden visual loss, bilateralEpilepsyCh ronic sinusitis 201 9 Baron [address]. [address], [place], [place], [address] , [place]. tel:[phone] Referring Provider: Le[address], [place], [place], [id number]. tel:[phone] OFFICE/OUTPA TIENT VISIT, [facility], [address], [place], [place], [address], [place] tel:[phone] [facility] sinus1 (chief complaint) epilepsy (chief complaint) anxiety1 (chief complaint) Chronic sinusitisEpilepsyBi polar disorder, unspecifiedFatigue 9 [address], [place], [place], [address] , [place]. [phone] Referring Provider: Leonel [address], [place], [place], [id number]. tel:[phone] PREV VISIT, NEW, AGE 18-39 [facility], [facility] [address], [place], [place], [address], [place] [phone] [facility] Medicine PHysical (chief complaint) Encounter for general adult medical exam w abnormal findingsEpilepsyPai n in right footBipolar disorder, unspecifiedVisual loss 9 Baron [address]. [address], [place], [place], [address] , [place]. tel:[phone] Referring [facility]: [facility] [place], [place], [address]. tel:[phone] Family History Family Member Type Diagnosis Age At Onset Mother Problem (finding) Alive and well Father Problem (finding) Alive and well Mother Problem (finding) Diabetes mellitus type 2 Sister Problem (finding) Alive and well Payers Payer name Insurance type Covered libertarian ID Authoriza tion(s) No Information Social History Type Description Quantity Date Captured Comments Alcohol Use Details No Caffeine Use Details Unknown Tobacco Use Status Current non-smoker 20 Smoking Status Never smoker Sex Male Vital Signs Date / Time: Height Weight BMI Pulse Rate Blood Pressure Temperature Respiratory Rate Body Surface Area Head Circumference BMI percentile Pulse Ox Inhaled Ox 5:49 PM 71.00 in 210.00 lbs 29.2 9 kg/m eter (2) Chief Complaint And Reason For Visit From encounter dated '04/28/2020 17:42'. toothache1 (chief complaint). Description: Pt c/o left upper molar toothache for several weeks. Pt denies any facial swelling Pt does not have dentist. Pt denies any headache HLP (chief complaint). Description: [place] and he was told that his lipid profile is very high Plan Of Treatment Date Type Action Status Goal Special diet education compl eted Goal Special diet education compl eted Goal Special diet education compl eted Referral Ordered: Yoav Salazar -[facility]opathic [facility] Osteopathic Physicians : Ophthalmology (related to Bilateral cystoid macular degeneration) ordered Referral Referred To: Yoav Salazar [address] [facility]
Provider Enrollment [place], [place], [id number] Ordered: Referrals: Allopathic [facility] Osteopathic Physicians : Ophthalmology. Yoav Salazar. Evaluate and treat ordered Referral Ordered: Otolaryngology (related to Chronic sinusitis) ordered Referral Ordered: Referrals: Otolaryngology. Evaluate and treat ordered Referral Ordered: CT MAXILLOFACIAL W/O DYE (SINUSES) SF ordered Referral Ordered: Ophthalmology (related to Encounter for general adult medical exam w abnormal findings) ordered Referral Ordered: JANETT CARLISLE -Podiatric Medicine & Surgery Service Providers : Mathematics Academic Chair (related to Pain in right foot) ordered Referral Ordered: Referrals: Ophthalmology. Evaluate and treat ordered Referral Referred To: JANETT CARLISLE [facility],[address] [place], [place], [phone] Ordered: Referrals: Podiatric Medicine & Surgery Service Providers : Mathematics Academic Chair. JANETT CARLISLE. Evaluate and treat ordered History Of Present Illness Encounter Date Complaint History Of Prese nt Illness toothache1 Pt c/o left uppe r molar toothache for several weeks. Pt denies any facial swelling Pt does not have dentist. Pt denies any headache HLP Pt [place] lab [place] and he was told that his lipid profile is very high facial pian1 Pt c/o right larisa e cheek swelling and pain since this morning. Pt denies any ear pain or toothache. Pt denies any fever, chill, headache. vision Pt has chronic p oor vision which is getting worse ,Pt denies any eye pain or drainage. Pt saw Dr. Marques recently who examined his eye and found that he has early macular degeneration. Pt was referred to retina specialist who he saw but mom told me nothing was offered to treat his vision issue. epilepsy1 Pt has grand mal seizure Pt takes depakote, trileptal and keppra. Pt has not had seizure for 6 months. [place] sinus Pt has chronic s inusitis. Pt is noncompliant Pt still has not done sinus CT Pt did see ENT who stated him on astelin nasal spray. Pt has persistent sinus congestion vision1 Pt has chronic b ilateral visual loss, worse on right side. pt denies any eye pain or eye injury Pt seen multiple spinner box and recently he saw a retina specialist but she has no idea what is going on. Pt is legally blind on right eye and his left eye also has decreased visual acuity. Pt state that he work up this morning and unable to see anything on both eye and he only saw yellow color like sunlight on both eyes, which lasted 5 mins and he recovered fully to his baseline pt denies any headache or any speech problem or any neurological weakness. Pt is very poor historian as well as his mom sinus1 Pt has chronic r unning nose, sneezing and nasal congestion, regardless the season. Pt denies any sore throat or coughing. pt denies any ear pain Pt snores heavily at night. Pt feels fatigue all the time. Pt denies any purulent sinus drainage epilepsy Additional infor matdanna: Pt has grand mal seizure Pt takes depakote, trileptal and keppra. Pt has not had seizure for 6 months. Pt decides to stay [place]. anxiety1 Pt has chronic a nxiety and depression Pt also has schizophrenia with bipolar Pt takes paliperidone, depakote, ativan and trileptal and doing ok Pt decides to stay with his psychiatrist from [place] to continue his care .Pt denies any suicidal or homicidal thought, Pt denies any crying spells. Pt denies hearing any voices. PHysical Pt needs annual physical. Pt has chronic developmental delay. Pt has learning disorder. Pt has epilepsy. Pt takes keppra and ativan? Pt is not sure. Pt has anxiety and depression and bipolar. Pt sees psychiatrist. Pt just moved here from [place]. Pt has some schizophrenia symptoms. Pt is on paliperidone as well. Both patient and his mom are very poor historian. Pt c/o right foot pain for 3 months Pt denies any injury Pt denies any numbness. . Mom states that he is legally blind chronically. Pt sees ophthalmology in [place] but he does not know what is the reason for his vision loss.. Pt has epilepsy Pt is seeing neurology in [place] but obviously he needs new specialist locally. Pt has not had any seizure for over 6 months Pt has grand mal seizure. Instructions Date Instruction Additional Infor mation Weight management Related to Tristen ateral cystoid macular degeneration Special diet education Related t o Body mass index (BMI) 29.0-29.9, adult Weight management Related to Chr onic sinusitis Increase physical activity Relat ed to Chronic sinusitis Special diet education Related t o Body mass index (BMI) 28.0-28.9, adult Weight management Related to Enc ounter for general adult medical exam w abnormal findings Special diet education Related t o Body mass index (BMI) 28.0-28.9, adult Assessments Type Assessment Date assessment Atypical facial pain assessment Hyperlipidemia Mental Status Date Cognitive Assessment Orientation - [place] ed to time, place, person, situation.
--- OUTSIDE RECORDS SUMMARY | 2024-10-16 16:51 | XMS_ITS ---
Author Organization [facility] Address [address] [place] [address] Care Team Providers Care Chief Unit Forester Name Role Phone Aaron Julien Primary Care Provider Results Component Value Reference Range Notes Hepatitis C Virus Antibody w /Rflx to Quantitative Real-time PCR ([id number]) Reviewed date:06/07/2024 12:24:32 PM Interpretation: Performing Lab:[facility], [email or web address] [facility] Phone - [phone], Director - Ph[facility]aker [facility] Hospitaldionte Notes/Report: HCV Ab Non Reactive Non Reactive Interpretation: Not infected with HCV unless early or acute infection is suspected (which may be delayed in an immunocompromised individual), or other evidence exists to indicate HCV infection. Hemoglobin A1c* Reviewed date:06/07/2024 12:24:32 PM Interpretation: Performing Lab:[facility], [email or web address] [facility] Phone - [phone], Director - [facility] Notes/Report: Hemoglobin A1c 5.1 4.8-5.6 % . Prediabetes: 5.7 - 6.4 Diabetes: >6.4 Glycemic control for adults with diabetes: <7.0 HIV Screen *HIV 1, 2 Ab, p24 Ag ([id number]) Reviewed date:06/07/2024 12:24:32 PM Interpretation: Performing Lab:[facility], [facility], Phone - [phone], Director - PhDBaker [facility] Hospitaldiontei Notes/Report: HIV Ab/p24 Ag Screen Non Reactive Non Reactive HIV-1/HIV-2 antibodies and HIV-1 p24 antigen were NOT detected. There is no laboratory evidence of HIV infection. HIV Negative TSH Rfx on Abnormal to Free T4 Reviewed date:06/07/2024 12:24:32 PM Interpretation: Performing Lab:[address], Phone - [phone], Director - [facility] Notes/Report: TSH 2.500 0.450-4.500 uIU/mL Lipid Panel* Reviewed date:06/07/2024 12:24:32 PM Interpretation: Performing Lab:[address], Phone - [phone], Director - [facility] Notes/Report: Cholesterol, Total 164 100-199 mg/dL Triglycerides 248 0-149 mg/dL HDL Cholesterol 35 >39 mg/dL VLDL Cholesterol Rommel 42 5-40 mg/dL LDL Chol Calc (NIH) 87 0-99 mg/dL Valproic Acid (Depakote)(R), S Reviewed date:06/07/2024 12:24:32 PM Interpretation: Performing Lab:[address], Phone - [phone], Director - [facility] Notes/Report: Valproic Acid (Depakote)(R),S 20 50-100 ug/mL Detection Limit = 4 <4 indicates None Detected . Toxicity may occur at levels of 100-500. Measurements of free unbound valproic acid may improve the assess- ment of clinical response. CBC With Differential/Platel et* Reviewed date:06/07/2024 12:24:32 PM Interpretation: Performing Lab:[address], Phone - [phone], Director - [facility] Notes/Report: WBC 8.5 3.4-10.8 x10E3/uL RBC 3.49 4.14-5.80 x10E6/uL Hemoglobin 9.4 13.0-17.7 g/dL Hematocrit 29.3 37.5-51.0 % MCV 84 79-97 fL MCH 26.9 26.6-33.0 pg MCHC 32.1 31.5-35.7 g/dL RDW 12.9 11.6-15.4 % Platelets 267 150-450 x10E3/uL Neutrophils 59 Not Estab. % Lymphs 27 Not Estab. % Monocytes 8 Not Estab. % Eos 4 Not Estab. % Basos 1 Not Estab. % Neutrophils (Absolute) 5.1 1.4-7.0 x10E3/uL Lymphs (Absolute) 2.3 0.7-3.1 x10E3/uL Monocytes(Absolute) 0.7 0.1-0.9 x10E3/uL Eos (Absolute) 0.4 0.0-0.4 x10E3/uL Baso (Absolute) 0.0 0.0-0.2 x10E3/uL Immature Granulocytes 1 Not Estab. % Immature Grans (Abs) 0.0 0.0-0.1 x10E3/uL Phosphorus, Serum* Reviewed date:06/07/2024 12:24:32 PM Interpretation: Performing Lab:[facility], [address] [facility], Phone - [phone], Director - [place] Notes/Report: Phosphorus 3.8 2.8-4.1 mg/dL CMP 14 Comprehensive Metabol ic Panel* Reviewed date:06/07/2024 12:24:32 PM Interpretation: Performing Lab:[facility], [address] [facility], Phone - [phone], Director - [place] Notes/Report: Glucose 103 70-99 mg/dL BUN 35 6-20 mg/dL Creatinine 5.09 0.76-1.27 mg/dL eGFR 14 >59 mL/min/1.73 BUN/Creatinine Ratio 7 9-20 Sodium 141 134-144 mmol/L Potassium 3.6 3.5-5.2 mmol/L Chloride 107 96-106 mmol/L Carbon Dioxide, Total 18 20-29 mmol/L Calcium 8.7 8.7-10.2 mg/dL Protein, Total 8.2 6.0-8.5 g/dL Albumin 4.3 4.1-5.1 g/dL Globulin, Total 3.9 1.5-4.5 g/dL Bilirubin, Total <0.2 0.0-1.2 mg/dL Alkaline Phosphatase 425 44-121 IU/L AST (SGOT) 14 0-40 IU/L ALT (SGPT) 9 0-44 IU/L REASON FOR VISIT labs Social History Sex Assigned At : Social History Observation Description Sex Assigned At Male Encounters Encounter Location Date Provider Diagnosis [address] [address] 05/29/2024 Aaron Julien Chronic kidney disease, stage 3b N18.32 ; Metabolic syndrome E88.810 ; Hypertension, unspecified type I10 ; Exposure to potential infection Z20.9 ; Seizure disorder G40.909 and Fatigue, unspecified type R53.83 Assessments Encounter Date Diagnosis (ICD Code) Assessment Notes Treatment Notes Treatment Clinical Notes Section Notes 05/29/2024 Chronic kidney disease, stage 3b (ICD-10 - N18.32) 05/29/2024 Metabolic syndrome (ICD-10 - E88.810) 05/29/2024 Hypertension, unspecified type (ICD-10 - I10) 05/29/2024 Exposure to potential infection (ICD-10 - Z20.9) 05/29/2024 Seizure disorder (ICD-10 - G40.909) 05/29/2024 Fatigue, unspecified type (ICD-10 - R53.83) Plan Of Treatment No Information Progress Notes * Jose OLIVAREZ JrDOB:1990 (34 yo M)Acc No.[id number]:05/29/2024 Patient: A Jose FAULKNER Jr Provider: Lucia Julien :1990 A ge:34 Y S ex:Male Date:05/29/2024 Address:[address] [place], [place] [id number] Subjective: * Chief Complaints: * 1 . Labs. * Medical History: Objective: * Vitals: Assessment: * Assessment: 1. C hronic kidney disease, stage 3b - N18.32 2 . M etabolic syndrome - E88.810 3 . H ypertension, unspecified type - I10 4 . E xposure to potential infection - Z20.9 5 . S eizure disorder - G40.909 6 . F atigue, unspecified type - R53.83 Plan: * Treatment: Value Reference Range P hosphorus, Serum 3.8 2.8-4.1 - mg/dL * Yoly Joseph 05/29/2024 04: 15:14 PM CDT > Specimen collected, patient tolerated well. Aaron Julien 05/30/2024 02:24:53 PM CDT > Kidney function has dereased to stage 4 CKD with creatinine 5.09. Seems to be progressing now. Depakote level a little low. Please take as directed. HDL cholesterol is a little low. Increase physical activity as tolerated. HEBER Mckay, Wendi Bowling 06/07/2024 12:23:12 PM CDT >Pt verbalized understanding of results.This lab was reviewed by Wendi Mckay RN on 06/07/2024 at 12:24 PM CDT 2.?Metabolic syndrome?LAB: Hemoglobin A1c Value Reference Range H emoglobin A1c 5.1 4.8-5.6 - % * Yoly Joseph 05/29/2024 04: 15:14 PM CDT > Specimen collected, patient tolerated well. Aaron Julien 05/30/2024 02:24:53 PM CDT > Kidney function has dereased to stage 4 CKD with creatinine 5.09. Seems to be progressing now. Depakote level a little low. Please take as directed. HDL cholesterol is a little low. Increase physical activity as tolerated. HEBER Mckay Valerie A 06/07/2024 12:23:12 PM CDT >Pt verbalized understanding of results.This lab was reviewed by Wendi Mckay RN on 06/07/2024 at 12:24 PM CDT ?LAB: Lipid Panel Value Reference Range T riglycerides 248 H 0-149 - mg/dL * H DL Cholesterol 35 L >39 - mg/dL * C holesterol, Total 164 100-199 - mg/dL * V LDL Cholesterol Rommel 42 H 5-40 - mg/dL * L DL Chol Calc ([facility]) 87 0-99 - mg/dL * Yoly Joseph 05/29/2024 04: 15:14 PM CDT > Specimen collected, patient tolerated well. Aaron Julien 05/30/2024 02:24:53 PM CDT > Kidney function has dereased to stage 4 CKD with creatinine 5.09. Seems to be progressing now. Depakote level a little low. Please take as directed. HDL cholesterol is a little low. Increase physical activity as tolerated. HEBER Mcaky, Wendi Bowling 06/07/2024 12:23:12 PM CDT >Pt verbalized understanding of results.This lab was reviewed by Wendi Mckay RN on 06/07/2024 at 12:24 PM CDT 3.?Hypertension, unspecified type?LAB: CMP 14 Comprehensive Metabolic Panel Value Reference Range C alcium, Serum 8.7 8.7-10.2 - mg/dL * A ST (SGOT) 14 0-40 - IU/L * A lkaline Phosphatase, S 425 H 44-121 - IU/L * B ilirubin, Total <0.2 0.0-1.2 - mg/dL * P rotein, Total, Serum 8.2 6.0-8.5 - g/dL * A lbumin, Serum 4.3 4.1-5.1 - g/dL * A LT (SGPT) 9 0-44 - IU/L * C arbon Dioxide, Total 18 L 20-29 - mmol/L * G lobulin, Total 3.9 1.5-4.5 - g/dL * C hloride, Serum 107 H 96-106 - mmol/L * P otassium, Serum 3.6 3.5-5.2 - mmol/L * S odium, Serum 141 134-144 - mmol/L * B UN/Creatinine Ratio 7 L 9-20 - * C reatinine, Serum 5.09 H 0.76-1.27 - mg/dL * B UN 35 H 6-20 - mg/dL * G lucose, Serum 103 H 70-99 - mg/dL * e GFR 14 L >59 - mL/min/1.73 * Yoly Joseph 05/29/2024 04: 15:14 PM CDT > Specimen collected, patient tolerated well. Aaron Julien 05/30/2024 02:24:53 PM CDT > Kidney function has dereased to stage 4 CKD with creatinine 5.09. Seems to be progressing now. Depakote level a little low. Please take as directed. HDL cholesterol is a little low. Increase physical activity as tolerated. HEBER Mckay Valerie A 06/07/2024 12:23:12 PM CDT >Pt verbalized understanding of results.This lab was reviewed by Wendi Mckay RN on 06/07/2024 at 12:24 PM CDT 4.?Exposure to potential infection?LAB: HIV Screen *HIV 1, 2 Ab, p24 Ag* Value Reference Range H IV Screen 4th Generation wRfx Non Reactive Non Reacti ve - * Yoly Joseph 05/29/2024 04: 15:14 PM CDT > Specimen collected, patient tolerated well. Aaron Julien 05/30/2024 02:24:53 PM CDT > Kidney function has dereased to stage 4 CKD with creatinine 5.09. Seems to be progressing now. Depakote level a little low. Please take as directed. HDL cholesterol is a little low. Increase physical activity as tolerated. HEBER Mckay, Wendi Bowling 06/07/2024 12:23:12 PM CDT >Pt verbalized understanding of results.This lab was reviewed by Wendi Mckay RN on 06/07/2024 at 12:24 PM CDT ?LAB: Hepatitis C Virus Antibody w/Rflx to Quantitative Real-time PCR* Value Reference Range H CV Ab Non Reactive Non Reactive - * Yoly Joseph 05/29/2024 04: 15:14 PM CDT > Specimen collected, patient tolerated well. Aaron Julien 05/30/2024 02:24:53 PM CDT > Kidney function has dereased to stage 4 CKD with creatinine 5.09. Seems to be progressing now. Depakote level a little low. Please take as directed. HDL cholesterol is a little low. Increase physical activity as tolerated. HEBER Mckay Valerie A 06/07/2024 12:23:12 PM CDT >Pt verbalized understanding of results.This lab was reviewed by Wendi Mckay RN on 06/07/2024 at 12:24 PM CDT 5.?Seizure disorder?LAB: Valproic Acid (Depakote)(R),S* Value Reference Range V alproic Acid (Depakote)(R),S 20 L 50-100 - ug /mL * Yoly Joseph 05/29/2024 04: 15:14 PM CDT > Specimen collected, patient tolerated well. Aaron Julien Shaquille 05/30/2024 02:24:53 PM CDT > Kidney function has dereased to stage 4 CKD with creatinine 5.09. Seems to be progressing now. Depakote level a little low. Please take as directed. HDL cholesterol is a little low. Increase physical activity as tolerated. HEBER Mckay, Wendi Bowling 06/07/2024 12:23:12 PM CDT >Pt verbalized understanding of results.This lab was reviewed by Wendi Mckay RN on 06/07/2024 at 12:24 PM CDT 6.?Fatigue, unspecified type?LAB: CBC With Differential/Platelet Value Reference Range I mmature Grans (Abs) 0.0 0.0-0.1 - x10E3/uL * I mmature Granulocytes 1 Not Estab. - % * B aso (Absolute) 0.0 0.0-0.2 - x10E3/uL * N eutrophils (Absolute) 5.1 1.4-7.0 - x10E3/uL * R BC 3.49 L 4.14-5.80 - x10E6/uL * M onocytes(Absolute) 0.7 0.1-0.9 - x10E3/uL * W BC 8.5 3.4-10.8 - x10E3/uL * E os (Absolute) 0.4 0.0-0.4 - x10E3/uL * H emoglobin 9.4 L 13.0-17.7 - g/dL * H ematocrit 29.3 L 37.5-51.0 - % * M CV 84 79-97 - fL * M CH 26.9 26.6-33.0 - pg * M CHC 32.1 31.5-35.7 - g/dL * R DW 12.9 11.6-15.4 - % * L ymphs (Absolute) 2.3 0.7-3.1 - x10E3/uL * B asos 1 Not Estab. - % * E os 4 Not Estab. - % * M onocytes 8 Not Estab. - % * L ymphs 27 Not Estab. - % * N eutrophils 59 Not Estab. - % * P latelets 267 150-450 - x10E3/uL * Yoly Joseph 05/29/2024 04: 15:14 PM CDT > Specimen collected, patient tolerated well. Aaron Julien 05/30/2024 02:24:53 PM CDT > Kidney function has dereased to stage 4 CKD with creatinine 5.09. Seems to be progressing now. Depakote level a little low. Please take as directed. HDL cholesterol is a little low. Increase physical activity as tolerated. HEBER Mckay, Wendi Bowling 06/07/2024 12:23:12 PM CDT >Pt verbalized understanding of results.This lab was reviewed by Wendi Mckay RN on 06/07/2024 at 12:24 PM CDT ?LAB: TSH Rfx on Abnormal to Free T4* Value Reference Range T SH 2.500 0.450-4.500 - uIU/mL * Yoly Joseph 05/29/2024 04: 15:14 PM CDT > Specimen collected, patient tolerated well. Aaron Julien 05/30/2024 02:24:53 PM CDT > Kidney function has dereased to stage 4 CKD with creatinine 5.09. Seems to be progressing now. Depakote level a little low. Please take as directed. HDL cholesterol is a little low. Increase physical activity as tolerated. HEBER Mckay, Wendi Bowling 06/07/2024 12:23:12 PM CDT >Pt verbalized understanding of results.This lab was reviewed by Wendi Mckay RN on 06/07/2024 at 12:24 PM CDT * * Sign off status: Completed true * Provider: Lucia Julien Date: 1 Generated for Arlene walton/Cathleen/Jaquelineitting on: 0 10/16/2024 04:50 PM [employer] M[employer] FILLER
--- OUTSIDE RECORDS SUMMARY | 2024-10-16 16:51 | XMS_ITS | Clinical Summary ---
Author Organization [facility] Address [address] [place] [address] Care Team Providers Care Agricultural Education Teacher Name Role Phone Nixon Draper MD Unavailable Aaron Julien MD Primary Care Provider [phone] Source Comments [facility],non-owned Affiliates and Associated Physician Practices is amultiple site organization consisting of ambulatory clinics and hospital sitesin [place], [place], [place] and [place]. This disclosure is being madepursuant to the Care Everywhere program and may not contain all information available regarding this patient. Last updated 18.[facility] Allergies Active Allergy Reactions Criticality Noted Date Comments Haloperidol Other 02/03/2020 Neck stiffness Haloperidol Seizures High 04/04/2021 Medications * Be aware that medications may not be up to date on this document. Alwaysverify current medications with the patient. Medication Sig Dispensed Refills Start Date End Date Status sertraline (ZOLOFT) 50 MG tablet Take 50 mg by mouth once daily 11/05/2021 Active traZODone (DESYREL) 50 MG tablet Take 50 mg by mouth at bedtime Active sodium bicarbonate 650 MG tablet 03/27/[address] (Depakote) 500 MG tabletIndications:Con vulsions, unspecified convulsion type (HCC),Partial symptomatic epilepsy with complex partial seizures, not intractable, without status epilepticus (HCC),Tonic clonic seizures (HCC),Seizure disorder (HCC) Take 1 (one) tablet by mouth 2 times daily 60 tablet 8 10/13/2022 Active OXcarbazepine (Trileptal) 600 MG tabletIndications:Con vulsions, unspecified convulsion type (HCC),Partial symptomatic epilepsy with complex partial seizures, not intractable, without status epilepticus (HCC),Tonic clonic seizures (HCC),Seizure disorder (HCC) TAKE 1 TABLET BY MOUTH EVERY DAY IN THE MORNING AND 1.5 TABS BY MOUTH AT NIGHT 75 tablet 1 08/15/2024 Active levETIRAcetam (Keppra) 250 MG tabletIndications:Con vulsions, unspecified convulsion type (HCC),Partial symptomatic epilepsy with complex partial seizures, not intractable, without status epilepticus (HCC),Tonic clonic seizures (HCC),Seizure disorder (HCC) TAKE 1 (ONE) TABLET BY MOUTH 2 TIMES DAILY 60 tablet 1 08/15/2024 Active levETIRAcetam (Keppra) 1000 MG tabletIndications:Con vulsions, unspecified convulsion type (HCC),Partial symptomatic epilepsy with complex partial seizures, not intractable, without status epilepticus (HCC),Tonic clonic seizures (HCC),Seizure disorder (HCC) TAKE 1 (ONE) TABLET BY MOUTH 2 TIMES DAILY 60 tablet 11 09/02/2024 Active Active Problems Problem Noted Date Diagnosed Date Chronic kidney disease 04/22/2021 Hypertension 04/22/2021 Overweight 04/22/2021 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 Bipolar disorder 02/03/2020 Seizure disorder 07/16/2019 Encounters Date Type Department Care Team Description 09/01/2024 Refill [facility] - Neurology [address] [place] [phone] Jose Raygoza, CASH CLERK-MECHANOTHERAPIST Refill Request 08/15/2024 Refill [facility] - Neurology [address] [place] [phone] Jose Raygoza, CASH CLERK-MECHANOTHERAPIST Refill Request from Last 3 Months Immunizations Name Administration Dates Next Due Covid Pfizer primary monoval ent 12+ yr 0.3mL Purple cap 08/31/2021,08/10/2021 Family History Relation Name Status Comments Mother Alive Social History Tobacco Use Types Packs/Day Years Used Date Smoking Tobacco: Never Smokeless Tobacco: Never Tobacco Cessation:Counseling Given: Not Answered Alcohol Use Standard Drinks/Week Comments Never 0 (1 standard drink = 0.6 oz pur e alcohol) AUDIT-C Answer Date Recorded Q1: How often do you have a drink containing alc ohol? Never 02/03/2020 Average Number of Drinks Not on file 020 Frequency of Binge Drinking Not on file 01/19 Sex and Gender Information Value Date Recorded Sex Assigned at Not on file Gender Identity Not on file Sexual Orientation Not on file Last Filed Vital Signs Vital Sign Reading Time Taken Comments Blood Pressure 153/98 03/28/2022 9:11 AM CDT Pulse 70 03/28/2022 9:11 AM CDT Temperature 36.7 C (98.1 F) 03/28/2022 9:11 AM CDT Respiratory Rate 18 04/04/2021 11:19 AM CDT Oxygen Saturation 98% 03/28/2022 9:11 AM CDT Inhaled Oxygen Concentration - - Weight 97.1 kg (214 lb) 03/28/2022 9:11 AM CDT Height 177.8 cm (5' 10 ) 03/28/2022 9:11 AM CDT Body Mass Index 30.71 03/28/2022 9:11 AM CDT Plan of Treatment Upcoming Encounters Date Type Department Care Team (Late st Contact Info) Description 01/02/2025 11:00 AM CDT Office Visit [facility] - Neurology [address] [facility] [facility] [place] [address] Kellee Mojica PA-C [address] [place] [address] Health Maintenance Due Date Last Done Comments HIV SCREENING 2003 HEPATITIS C SCREENING 04/19/2006 DTAP/TDAP/TD VACCINES (1 - Tdap) 2007 HEPATITIS B VACCINE (1 of 3 - 19+ 3-dose series) 2007 COVID-19 VACCINE (3 - 2023-2 5 season) 2024 08/31/2021, 08/10/2021 INFLUENZA VACCINE (#1) 2024 ZOSTER VACCINE (1 of 2) 2038 HIB VACCINE Aged Out No longer eligi ble based on patient's age to complete this topic HPV VACCINE Aged Out No longer eligi ble based on patient's age to complete this topic MENINGOCOCCAL (Group B) VACCINE Aged Out No longer eligible b ased on patient's age to complete this topic MENINGOCOCCAL VACCINE Aged Out No ree howard eligible based on patient's age to complete this topic PNEUMOCOCCAL VACCINE Aged Out No long er eligible based on patient's age to complete this topic Care Teams Agricultural Education Teacher Relationship Specialty Start Date End Date Aaron Julien MD [address] [place] [id number] PCP - General 06/10/21 Nixon Draper MD 04/04/21
--- OUTSIDE RECORDS SUMMARY | 2024-10-16 16:51 | XMS_ITS | Patient Health Summary ---
Author Organization [facility] Address [address] [place] [address] Care Team Providers Care Hosiery Knitter Name Role Phone Nixon Draper MD Unavailable Aaron Julien MD Primary Care Provider [phone] Note from [facility] [place],non-owned Affiliates and Associated Physician Practices is amultiple site organization consisting of ambulatory clinics and hospital sitesin [place], [place], [place] and [place]. This disclosure is being madepursuant to the Care Everywhere program and may not contain all information available regarding this patient. Last updated 18.[facility] Allergies * Haloperidol(Other) * Haloperidol(Seizures) -High Criticality Medications * Be aware that medications may not be up to date on this document. Alwaysverify current medications with the patient. * sertraline (ZOLOFT) 50 MG tablet(Started 11/05/2021) Take 50 mg by mouth once daily * traZODone (DESYREL) 50 MG tablet Take 50 mg by mouth at bedtime * sodium bicarbonate 650 MG tablet(Started 03/27/2022) * divalproex DR (Depakote) 500 MG tablet(Started 10/13/2022) Take 1 (one) tablet by mouth 2 times daily 8 refills by 10/13/2023 * OXcarbazepine (Trileptal) 600 MG tablet(Started 08/15/2024) TAKE 1 TABLET BY MOUTH EVERY DAY IN THE MORNING AND 1.5 TABS BY MOUTH AT NIGHT 1 refill by 08/15/2025 * levETIRAcetam (Keppra) 250 MG tablet(Started 08/15/2024) TAKE 1 (ONE) TABLET BY MOUTH 2 TIMES DAILY 1 refill by 08/15/2025 * levETIRAcetam (Keppra) 1000 MG tablet(Started 09/02/2024) TAKE 1 (ONE) TABLET BY MOUTH 2 TIMES DAILY 11 refills by 09/02/2025 Active Problems Problem Noted Date Diagnosed Date Chronic kidney disease 04/22/2021 Hypertension 04/22/2021 Overweight 04/22/2021 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 Bipolar disorder 02/03/2020 Seizure disorder 07/16/2019 Immunizations * Covid Pfizer primary monovalent 12+ yr 0.3mL Purple cap(Given 08/31/2021, 08/10/2021) Social History Tobacco Use Types Packs/Day Years [...] Mass Index 30.71 03/28/2022 9:11 AM CDT Procedures * OPH VISUAL FIELD TEST [facility](Performed 04/29/2020) Performed for Macular degeneration of both eyes, unspecified type * OPH OCT TEST [facility](Performed 03/16/2020) Performed for Macular degeneration of both eyes, unspecified type * OPH OCT TEST [facility](Performed 02/03/2020) Performed for Macular degeneration of both eyes, unspecified type Results * OPH VISUAL FIELD TEST [facility] (04/29/2020 2:36 PM CDT) Anatomical Region Laterality Modality Other 04/29/2020 2:36 PM CDT Alexys Mendez MD [facility] ORDERABLES * OCT (03/16/2020 11:10 AM CDT) Anatomical Region Laterality Modality Other 03/16/2020 11:1 0 AM CDT Alexys Mendez MD OPHTHALMOLO GY SERVICES ORDERABLES * OCT (02/03/2020 8:29 AM CDT) Anatomical Region Laterality Modality Other 02/03/2020 8:29 AM CDT Justyn Grimaldo MD OPHTHALMOLOGY SERVIC ES ORDERABLES Care Teams Hosiery Knitter Relationship Specialty Start Date End Date Aaron Julien MD [address] [facility] [address] [place] [address] PCP - General 06/10/21 Nixon Draper MD 04/04/21
--- OUTSIDE RECORDS SUMMARY | 2024-10-16 16:51 | XMS_ITS | Patient Health Record ---
Author Organization [facility] Address [address] [place] [address] Care Team Providers Care Digital Marketing Apprentice Name Role Phone Anaya Aaron Primary Care Provider [phone] Yas Strauss [phone] Allergies Allergen (clinical drug ingredient) Drug/Non Drug Allergy documented on EMR Reaction Allergy Type Onset Date Status Haldol Muscle Spasms Drug Allergy Act kendall Results Component Value Reference Range Notes HIV Screen *HIV 1, 2 Ab, p24 Ag ([id number]) Reviewed date:06/07/2024 12:24:32 PM Interpretation: Performing Lab:[facility] [address] [facility], Phone - [phone], Director - Riley Notes/Report: HIV Ab/p24 Ag Screen Non Reactive Non Reactive HIV-1/HIV-2 antibodies and HIV-1 p24 antigen were NOT detected. There is no laboratory evidence of HIV infection. HIV Negative Phosphorus, Serum* Reviewed date:06/07/2024 12:24:32 PM Interpretation: Performing Lab:[facility] [employer], [address] [facility], Phone - [phone], Director - Riley Notes/Report: Phosphorus 3.8 2.8-4.1 mg/dL Hemoglobin A1c* Reviewed date:06/07/2024 12:24:32 PM Interpretation: Performing Lab:[facility] [address] [facility], Phone - [phone], Director - PhDUri Notes/Report: Hemoglobin A1c 5.1 4.8-5.6 % . Prediabetes: 5.7 - 6.4 Diabetes: >6.4 Glycemic control for adults with diabetes: <7.0 CBC With Differential/Platel et* Reviewed date:06/07/2024 12:24:32 PM Interpretation: Performing Lab:[facility], [address] [facility], Phone - [phone], Director - [facility] Notes/Report: WBC 8.5 3.4-10.8 x10E3/uL RBC [...] % Immature Grans (Abs) 0.0 0.0-0.1 x10E3/uL Valproic Acid (Depakote)(R), S Reviewed date:06/07/2024 12:24:32 PM Interpretation: Performing Lab:[facility], [address] [facility] [place], Phone - [phone], Director - [facility] Notes/Report: Valproic Acid (Depakote)(R),S 20 50-100 ug/mL Detection Limit = 4 <4 indicates None Detected . Toxicity may occur at levels of 100-500. Measurements of free unbound valproic acid may improve the assess- ment of clinical response. Hepatitis C Virus Antibody w /Rflx to Quantitative Real-time PCR ([id number]) Reviewed date:06/07/2024 12:24:32 PM Interpretation: Performing Lab:[facility] [address] [place] [address], Phone - [phone], Director - [facility] Notes/Report: HCV Ab Non Reactive Non Reactive Interpretation: Not infected with HCV unless early or acute infection is suspected (which may be delayed in an immunocompromised individual), or other evidence exists to indicate HCV infection. Lipid Panel* Reviewed date:06/07/2024 12:24:32 PM Interpretation: Performing Lab:[facility] [address], Phone - [phone], Director - [facility] Notes/Report: Cholesterol, Total 164 100-199 mg/dL Triglycerides 248 0-149 mg/dL HDL Cholesterol 35 >39 mg/dL VLDL Cholesterol Rommel 42 5-40 mg/dL LDL Chol Calc (NIH) 87 0-99 mg/dL CMP 14 Comprehensive Metabol ic Panel* Reviewed date:06/07/2024 12:24:32 PM Interpretation: Performing Lab:[facility] [address] [place] [address], Phone - [phone], Director - [facility] Notes/Report: Glucose 103 70-99 mg/dL BUN 35 [...] 0-40 IU/L ALT (SGPT) 9 0-44 IU/L TSH Rfx on Abnormal to Free T4 Reviewed date:06/07/2024 12:24:32 PM Interpretation: Performing Lab:[facility] [place], [address] [facility], Phone - [phone], Director - PhDRicchiuti Notes/Report: TSH 2.500 0.450-4.500 uIU/mL Renal Panel (10) Reviewed date:02/29/2024 12:09:55 PM Interpretation: Performing Lab: Notes/Report: CBC With Differential/Platel et* Reviewed date:02/29/2024 09:18:15 AM Interpretation: Performing Lab: Notes/Report: Renal Panel (10) Reviewed date:03/19/2024 12:06:50 PM Interpretation: Performing Lab:[facility] [place], [address] [facility], Phone - [phone], Director - [facility] Notes/Report: Glucose 82 70-99 mg/dL BUN 30 6-20 mg/dL Creatinine 4.32 0.76-1.27 mg/dL eGFR 17 >59 mL/min/1.73 BUN/Creatinine Ratio 7 9-20 Sodium 140 134-144 mmol/L Potassium 4.7 3.5-5.2 mmol/L Chloride 107 96-106 mmol/L Carbon Dioxide, Total 18 20-29 mmol/L Calcium 8.7 8.7-10.2 mg/dL Phosphorus 4.4 2.8-4.1 mg/dL Albumin 4.1 4.1-5.1 g/dL Xray : Knee, right 2 views Reviewed date:03/29/2024 10:29:31 AM Interpretation:Stable Performing Lab: Notes/Report: Stable Xray : Knee, right Reviewed date:01/23/2024 03:59:46 PM Interpretation: Performing Lab: Notes/Report: Reason For Referral Reason FLAT FEET WITH PAIN IN RIGHT FIRST MTP AND LEFT HEEL Diagnosis 1 Pes planus of left f oot (M21.42) Referral Organization [facility] Referring Provider First Name Aaron Referring Provider Last Name Anaya Referring Provider Speciality Internal M edicine Referred Provider Specialty Podiatry General Notes HEBER Mckay, Liz Bowling 10/18/2023 04:05:07 PM > referred to Dr Mike. Letter to pt. Clinical Notes Dr. Mike, [address] [facility] [address], , Referral Priority Routine Reason NEEDS RN, PT, LAB DR BISHOP FOR TIBIAL PLATEAU FRACTURE, STAGE 4 CKD Diagnosis 1 Fracture (T14.8XXA) Referral Organization [facility] Referring Provider First Name Aaron Referring Provider Last Name Anaya Referring Provider Speciality Internal M edicine Referred Provider Specialty Home Health Care General Notes HEBER Mckay Valeri e A 11/02/2023 04:30:07 PM > Referral to [facility]. Letter to pt.Marya RN, Stephanie N 11/03/2023 02:07:00 PM > Faxed received from [facility] denying referral due to lack of availability., HEBER Malhotar Stephanie N 11/03/2023 02:13:21 PM >Spoke to staff at [facility] health; they do not accept [place].Marya RN, Stephanie N 11/03/2023 02:19:34 PM > contacted GRISELNA at [phone]. Left a voice message asking them to return our call to find out if they are accepting new home health patients and if they accept [place].Marya RN, Stephanie N 11/03/2023 02:32:42 PM > Per Korina, [facility] does accept [place] and has home health [place] the [address] [address] from there [place] location. Per Korina, we can fax the referral to [phone], they will review the referral and notify us if it will be accepted.Marya RN, Stephanie N 11/03/2023 02:34:50 PM > referral faxed through [facility]. See fax logs., HEBER Mckay Valerie A 11/07/2023 05:07:13 PM > faxed to [facility], HEBER Mckay Valerie A 11/09/2023 11:02:48 AM > Referral to [facility]. Pt notified.Woody RN, Valerie A 12/28/2023 03:06:54 PM >No HH would accept going to home due to insurance and lack of staff Clinical Notes [facility], [address] [place] [phone], , Referral Priority Routine Reason REHAB AFTER RIGHT TI BIAL PLATEAU FX Diagnosis 1 Fracture (T14.8XXA) Referral Organization [facility] Referring Provider First Name Aaron Referring Provider Last Name Anaya Referring Provider Speciality Internal M edicine Referred Provider Specialty Physical The rapist General Notes HEBER Mckay, Liz Bowling 12/28/2023 02:42:08 PM > Pt Referral to [facility]. Letter to pt.Woody RN, Wendi Bowling 03/29/2024 10:30:47 AM >Refaxed referral to [facility] Clinical Notes [facility] rory, [facility] [place] [address], , Referral Priority Routine Reason IN SHAPE PROGRAM Diagnosis 1 Chronic kidney disea se, stage 4 (severe) (N18.4) Diagnosis 2 Fracture (T14.8XXA) Referral Organization [facility] Referring Provider First Name Yas Referring Provider Last Name Rica Referring Provider Speciality Behavioral Health Referred Provider Specialty Behavioral [facility] General Notes Originally Kevin Jin Julie A 04/24/2024 01:07:41 PM > Spoke with patient's mother. She has asked for a call back due to her driving right now and would like to discuss program with Jose.Kevin Julie A 07/03/2024 10:25:48 AM > Attempts to contact Jose unsuccessful. If interested in InSHAPE program can send another referral Clinical Notes Beth Marques 12/27 04:12:56 PM >Staff CARLOS talks to Consumer. Consumer's mother is in attendance. It's reported that Consumer has some trouble with Gambian and their mother, Zhane Yoder, helps them with medical related tasks. Consumer is in agreement with referral. Staff BREANNA talks to Consumer about basics of program. Consumer would like to continue with referral. Staff BREANNA informs Consumer about LEVI Abraham. , Staff BREANNA notifies Leigh of interest for InShape program. Referral Priority Routine Reason HOME SLEEP STUDY WIT H REFLEX TO PSG, EPWORTH SCORE 14 Diagnosis 1 Sleep apnea in adult (G47.33) Referral Organization [facility] Referring Provider First Name Aaron Referring Provider Last Name Anaya Referring Provider Speciality Internal M edicine Referred Provider Specialty Sleep Medici ne General Notes HEBER Mckay Valeri e A 06/07/2024 12:25:59 PM > Referral to [facility], Letter to Pt., HEBER Mckay Valerie A 06/10/2024 11:41:50 AM > No Jorge Alberto required for Home Sleep Study Clinical Notes [facility], [address] [facility] [address], , Referral Priority Routine Medications Medication SIG (Take, Route, Frequency, Duration) Notes Start Date End Date Status Triamcinolone Acetonide 0.1 % 1 application Externally twice a day 06/08/2022 Active Acetaminophen 500 MG two tablets Orally three times daily As needed PAIN 12/10/2021 Active levETIRAcetam 250 MG 1 tablet Orally dian ry 12 hrs Active Divalproex Sodium ER 500 MG 1 tablet Ora lly three times a day Active OXcarbazepine 600 MG 1.5 tablet Orally T wice a day Active Escitalopram Oxalate 5 MG 1 tablet Orall y Once a day Active Sodium Bicarbonate 650 MG TAKE 1 TABLET BY MOUTH THREE TIMES A DAY Active Blood Pressure Monitor - DAILY EXTERNALL Y DIRECTED 11/11/2021 Active Paliperidone ER 6 MG 1 tablet in the mor susan Orally Once a day Active levETIRAcetam 1000 MG TAKE 1 TABLET BY M OUTH EVERY 12 HOURS Active Cyclobenzaprine HCl 10 MG 1 tablet at be dtime as needed Orally twice a day Active diazePAM 5 MG 1 tablet as needed Orally Once a day As needed SEVERE ANXIETY 10/18/2023 Active traZODone HCl 50 MG 1 tablet at bedtime as needed Orally Once a day for 30 days Active Social History Tobacco Use: Social History Observation Description Date Details (start date - stop date) Never Smoker NA - NA Sex Assigned At : Social History Observation Description Sex Assigned At Male Dont use, Tobacco Use/Smoking Question Answer Notes Are you a nonsmoker Alcohol Screen (Audit-C) Question Answer Notes Did you have a drink containing alcohol in the p ast year? 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 [facility] RECORDS Problem 472581711 Bipolar 1 disorder (F31.9) 06/02/20 20 Active confirmed Problem 499120556 Seizure disorder (G40.909) Active confirmed Problem 00148502 Hemorrhoids, unspecified hemorrhoid type (K64.9) Active confirmed Problem Essential hypertension (22907081) Hypertension, unspecified type (I10) 08/21/19 Active confirmed Problem Obesity (811828013) Obesity, unspecified classification , unspecified obesity type, unspecified whether serious comorbidity present (E66.9) Active confirmed Problem Blood chemistry abnormal (439041066) Abnormal thyroid blood test (R79.89) Active confirmed Problem 103840064 Chronic kidney disease, stage 3b (N18.32) Active confirmed Problem 14210340 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) Active confirmed Problem 645958947 Left renal mass (N28.89) Active confirmed Problem Metabolic syndrome (964552545) Metabolic syndrome (E88.810) Active confirmed Vital Signs Heart Rate 120 /min 10/02/2024 Respiratory Rate 16 /min 10/02/2024 Blood pressure diastolic 84 mm Hg 10/02/2024 Oximetry 98 % 10/02/2024 Height 71 in 10/02/2024 Blood pressure systolic 122 mm Hg 10/02/2024 Weight 196.2 lbs 10/02/2024 BMI 27.36 kg/m2 10/02/2024 Encounters Encounter Location Date Provider Diagnosis [address] [place] [address] 10/18/2023 Aaron Julien Chronic kidney disease, stage 3b N18.32 ; Pes planus of left foot M21.42 ; Bipolar 1 disorder F31.9 ; Hypertension, unspecified type I10 and Nutritional counseling Z71.[address] [place] [address] 11/02/2023 Aaron Julien Chronic kidney disease, stage 4 (severe) N18.4 and Fracture T14.8XXA [facility] [address] [place] [address] 11/10/2023 Aaron Julien Bipolar 1 disorder F31.9 ; Hypertension, unspecified type I10 ; Chronic kidney disease, stage 3b N18.32 and Fracture T14.8XXA [address] [address] 12/28/2023 Aaron Julien Chronic kidney disease, stage 4 (severe) N18.4 and Fracture T14.8XXA [address] [address] 03/18/2024 Aaron Julien Chronic kidney disease, stage 3b N18.32 ; Hypertension, unspecified type I10 and Right knee pain, unspecified chronicity M25.[address] [address] 05/29/2024 Aaron Julien Hypertension, unspecified type I10 ; Chronic kidney disease, stage 3b N18.32 ; Seizure disorder G40.909 ; Bipolar 1 disorder F31.9 ; Sleep apnea in adult G47.33 ; Nutritional counseling Z71.3 ; Fatigue, unspecified type R53.83 ; Metabolic syndrome E88.810 and Exposure to potential infection Z20.[address] [address] 05/29/2024 Aaron Julien Chronic kidney disease, stage 3b N18.32 ; Metabolic syndrome E88.810 ; Hypertension, unspecified type I10 ; Exposure to potential infection Z20.9 ; Seizure disorder G40.909 and Fatigue, unspecified type R53.[address] [address] 10/02/2024 Aaron Julien Viral URI with cough J06.9 ; Hypertension, unspecified type I10 ; Chronic kidney disease, stage 3b N18.32 ; Tuberous sclerosis Q85.1 ; Seizure disorder G40.909 and Bipolar 1 disorder F31.9 [facility] [address] [place] [address] 11/08/2023 Aaron Julien Bipolar 1 disorder F31.[address] [address] 11/22/2023 Aaron Julien Acute right-sided thoracic back pain M54.6 [facility] [address] [place] [address] 12/14/2023 Aaron Julien [address] [address] 12/28/2023 Aaron Julien [address] [address] 12/28/2023 Yas Strauss [address] [address] 01/05/2024 Aaron Julien [address] [address] 02/19/2024 Aaron Julien [address] [address] 04/01/2024 Aaron Julien Bipolar 1 disorder F31.9 Assessments Encounter Date [...] FOR RAPID FLU A/B AND COVID SCREENING. 03/18/2024 Chronic kidney disease, stage 3b (ICD-10 - N18.32) 12/28/2023 Chronic kidney disease, stage 4 (severe) (ICD-10 - N18.4) AVOID NSAID'S 12/28/2023 Fracture (ICD-10 - T14.8XXA) 05/29/2024 Hypertension, unspecified type (ICD-10 - I10) 05/29/2024 Chronic kidney disease, stage 3b (ICD-10 - N18.32) 04/01/2024 Bipolar 1 disorder (ICD-10 - F31.9) 03/18/2024 Hypertension, unspecified type (ICD-10 - I10) 10/02/2024 Hypertension, unspecified type (ICD-10 - I10) DOING WELL WITH WEIGHT LOSS. CONTINUE TO MONITOR AT HOME. 05/29/2024 Chronic kidney disease, stage 3b (ICD-10 - N18.32) 11/02/2023 Chronic kidney disease, stage 4 (severe) (ICD-10 - N18.4) 11/02/2023 Fracture (ICD-10 - T14.8XXA) 11/08/2023 Bipolar 1 disorder (ICD-10 - F31.9) 11/22/2023 Acute right-sided thoracic back pain (ICD-10 - M54.6) 11/10/2023 Bipolar 1 disorder (ICD-10 - F31.9) Doing well with medications but still dependent upon others for food procurement of preparation as well as for prompts for ADL's and medication administration. 11/10/2023 Hypertension, unspecified type (ICD-10 - I10) continue meds 10/18/2023 Chronic kidney disease, stage 3b (ICD-10 - N18.32) reviewed 09/2023 labs. 10/18/2023 Pes planus of left foot (ICD-10 - M21.42) BILATERAL WITH PAIN. DISCUSSED ICE AND STRETCHES AND GOOD FOOT WEAR. 11/10/2023 Chronic kidney disease, stage 3b (ICD-10 - N18.32) willl need f/u labs with home health or in office 10/18/2023 Bipolar 1 disorder (ICD-10 - F31.9) INCREASE DEPAKOTE ER AND ADD PRN DIAZEPAM. 05/29/2024 Metabolic syndrome (ICD-10 - E88.810) 05/29/2024 Seizure disorder (ICD-10 - G40.909) 10/02/2024 Chronic kidney disease, stage 3b (ICD-10 - N18.32) 05/29/2024 Bipolar 1 disorder (ICD-10 - F31.9) 05/29/2024 Hypertension, unspecified type (ICD-10 - I10) 03/18/2024 Right knee pain, unspecified chronicity (ICD-10 - M25.561) DISCUSSED HEALTHY DIET, WT CONTROL, BODY WEIGHT EXERCISES 10/02/2024 Tuberous sclerosis (ICD-10 - Q85.1) 11/10/2023 Fracture (ICD-10 - T14.8XXA) Await RN, PT, OT. D/w pt and mother that a home health agency has yet to accept his case. 10/18/2023 Hypertension, unspecified type (ICD-10 - I10) controlled 10/18/2023 Nutritional counseling (ICD-10 - Z71.3) 10/02/2024 Seizure disorder (ICD-10 - G40.909) 05/29/2024 Exposure to potential infection (ICD-10 - Z20.9) 05/29/2024 Sleep apnea in adult (ICD-10 - G47.33) 05/29/2024 Seizure disorder (ICD-10 - G40.909) 05/29/2024 Nutritional counseling (ICD-10 - Z71.3) 10/02/2024 Bipolar 1 disorder (ICD-10 - F31.9) 05/29/2024 Fatigue, unspecified type (ICD-10 - R53.83) 05/29/2024 Fatigue, unspecified type (ICD-10 - R53.83) 05/29/2024 Metabolic syndrome (ICD-10 - E88.810) 05/29/2024 Exposure to potential infection (ICD-10 - Z20.9) Plan Of Treatment No Information Insurance Providers Payer Name Payer Address Payer Phone Subscriber Number Group Number Insured Name Patient Relationship to Insured Coverage Start Date Coverage End Date [facility] Attn Claims Department [address] [place] [address] [phone] [id number] Jose Olivarez Self - patient is the insured 0 [employer] Attn Claims Department [address] [place] [address] [phone] [id number] Jose Olivarez Self - patient is the insured 1 Medical (General) History Surgical History Surgery Date(Month/Year) Hospitalization History Reason Date(Month/Year) [facility] 09/2023 [facility] 08/2020
--- OUTSIDE RECORDS SUMMARY | 2024-10-16 16:51 | XMS_ITS | Clinical Summary ---
Author Organization [facility] Address [address] [place] [address] Care Team Providers Care Industrial Maintenance Tech Name Role Phone Nixon Draper MD Primary Care Provider + [phone] Social History Tobacco Use Types Packs/Day Years Used Date Smoking Tobacco: Never Assessed Personal Safety Answer Date Recorded Getting School Help Needed Not on file 11/07 Sex and Gender Information Value Date Recorded Sex Assigned at Not on file Legal Sex Male 3:36 PM CDT Gender Identity Not on file Sexual Orientation Not on file Plan of Treatment Not on file Insurance [facility] Care Teams Industrial Maintenance Tech Relationship Specialty Start Date End Date Nixon Draper MD [address] [facility] [place] [address] PCP - General Family Medicine 02/07/20
--- OUTSIDE RECORDS SUMMARY | 2024-10-16 16:51 | XMS_ITS | Continuity of Care Document ---
Author Organization [facility] Address [address] [place] [address] Phone Care Team Providers Care Hand Rug Braider Name Role Phone Desmond Bolden Unavailable Unavailable Allergies, Adverse Reactions, Alerts Substance Reaction Status Criticality Penicillins Active No Information Medications Medication Instructions Dosage Effective Dates (start - stop) Status Comments oxcarbazepine 600 mg tablet take 1 tablet by oral route 2 times every day 600 MG - Active levetiracetam 750 mg tablet take 1 tablet by oral route 2 times every day 750 MG - Active divalproex 500 mg tablet,delayed release take 1 tablet by oral route 2 times every day 500 MG - Active lorazepam 1 mg tablet take 1 tablet by o ral route 3 times every day as needed 1 MG - Active Invega 6 mg tablet,extended release take 1 tablet by oral route every day in the morning 6 MG - Active Procedures Procedure Date Office/outpatient Visit, Est Office/outpatient Visit, Est Office Consultation Advance Directives Directive Yes / No Effective Date File Name No Information Encounters Encounter Description Practice Location Reason(s) For Visit Diagnoses Date Provider Providers Copied on Encounter Office/outpati ent Visit, Est [facility], [address], [place], [address], [place] tel:[phone] [facility] Chronic Kidney Disease (chief complaint) Chronic kidney disease, stage 2 (mild) 7 Yuan Logan. [address] [facility], [address], [place], [place], [id number], [place]. tel:[phone] Referring Provider: Brayan Jenna E, [address], [place], [address]. tel:[phone] Office/outpati ent Visit, Est [facility], [address] [place] [address], [address], [place] tel:[phone] [facility] Chronic Kidney Disease (chief complaint) Chronic kidney disease, stage 2 (mild) 6 Yuan Logan. [address] [place] [address], [place] [address], [id number], [place]. tel:[phone] Referring Provider: [address], [place], [address]. tel:[phone] Office Consultation [facility], [address] [place] [address], [address], [place] tel:[phone] [facility] Chronic Kidney Disease (chief complaint) Chronic kidney disease, stage 3 (moderate) 6 Yuan Logan. [address] [place] [address], [place] [address], [id number], [place]. tel:[phone] Referring Provider: [address], [place], [address]. tel:[phone] [facility], [address] [place] [address], [address], [place] tel:[phone] [facility] No Information 6 Jay Jay Hurley. [address] [facility] [address], [place], [id number], [place]. tel:[phone] Family History Family Member Type Diagnosis Age At Onset Mother Problem (finding) Diabetes mellitus Immunizations Vaccine Date Status Comments Flu (split) (3 yrs or older) not administered Source: New Immuniza tion Record Flu (split) (3 yrs or older) not administered Source: New Immuniza tion Record Pneumo (2 yrs or older) (PPV23) not administered Source: New Immuniza tion Record Payers Payer name Insurance type Covered green party ID Authoriza tion(s) [employer] [facility] [id number] [employer] [facility] [id number] [employer] [facility] [id number] Social History Type Description Quantity Date Captured Comments Alcohol Use Details Unknown Caffeine Use Details Unknown Tobacco Use Status Never smoked tobacco 2016 Smoking Status Never smoker Non-Smoking Tobacco Use Details : No Details Available : No Details Available Sex Male Vital Signs Date / Time: Height Weight BMI Pulse Rate Blood Pressure Temperature Respiratory Rate Body Surface Area Head Circumference BMI percentile Pulse Ox Inhaled Ox 2:23 PM 71.00 in 200.00 lbs 27.8 9 kg/m eter (2) 88 /min 119/80 mm[Hg] Chief Complaint And Reason For Visit From encounter dated '09/13/2016 14:15'. Chronic Kidney Disease (chief complaint). Description: The patient's disease began gradually. The severity of symptoms due to the patient's CKD is currently rated mild-moderate/10 (10=most severe). The patient's CKD is currently stable. Relevant disease context/risk factors include: male gender. Pertinent negatives include a lack of the following symptoms: ankle swelling and dyspnea. History Of Present Illness Encounter Date Complaint History Of Shadi nt Illness Chronic Kidney Disease The patibruno nt's disease began gradually. The severity of symptoms due to the patient's CKD is currently rated mild-moderate/10 (10=most severe). The patient's CKD is currently stable. Relevant disease context/risk factors include: male gender. Pertinent negatives include a lack of the following symptoms: ankle swelling and dyspnea. Chronic Kidney Disease The ivory nt's disease began gradually. The severity of symptoms due to the patient's CKD is currently rated mild-moderate/10 (10=most severe). The patient's CKD is currently stable. Relevant disease context/risk factors include: male gender. Pertinent negatives include a lack of the following symptoms: ankle swelling, dyspnea and fatigue. Chronic Kidney Disease The patie nt's disease began gradually. The severity of symptoms due to the patient's CKD is currently rated mild-moderate/10 (10=most severe). The patient's CKD is currently a new diagnosis. Relevant disease context/risk factors include: male gender. Pertinent negatives include a lack of the following symptoms: ankle swelling, decreased appetite, dyspnea, fatigue and rash. Instructions Date Instruction Additional Infor mation No Information Assessments Type Assessment Date assessment Chronic kidney disease, stage 2 (mild)
--- OUTSIDE RECORDS SUMMARY | 2024-10-16 16:51 | XMS_ITS | Referral Summary ---
Author Organization [facility] Address [address] [place] [address] Care Team Providers Care Vpk Teacher Name Role Phone Nixon Draper MD Primary Care Provider [phone] Social History Tobacco Use Types Packs/Day Years Used Date Smoking Tobacco: Never Assessed Personal Safety Answer Date Recorded Getting School Help Needed Not on file 11/07 Sex and Gender Information Value Date Recorded Sex Assigned at Not on file Legal Sex Male 3:36 PM CDT Gender Identity Not on file Sexual Orientation Not on file Plan of Treatment Not on file Insurance [facility] Care Teams Vpk Teacher Relationship Specialty Start Date End Date Nixon Draper MD [address] [facility] [place] [address] PCP - General Family Medicine 02/07/20
--- OUTSIDE RECORDS SUMMARY | 2024-10-16 16:51 | XMS_ITS | Referral Summary ---
Author Organization [facility] Address [address] [facility] [place] [address] Care Team Providers Care Operations Support Specialist Name Role Phone Nixon Draper MD Unavailable Aaron Julien MD Primary Care Provider [phone] Source Comments [facility],non-[facility] Affiliates and Associated Physician Practices is amultiple site organization consisting of ambulatory clinics and hospital sitesin [place], [place], [place] and [place]. This disclosure is being madepursuant to the Care Everywhere program and may not contain all information available regarding this patient. Last updated 18.[facility] Encounters Date Type Department Care Team Description 09/01/2024 Refill [facility] - Neurology [address] [place] [address], [place] [address] Jose Raygoza APRN-SERVICE CLERK Refill Request 08/15/2024 Refill [facility] - Neurology [address] [facility], [place] [address] Jose Raygoza APRN-SERVICE CLERK Refill Request from Last 3 Months Allergies Active Allergy Reactions Criticality Noted Date [...] Bipolar disorder 02/03/2020 Seizure disorder 07/16/2019 Immunizations Name Administration Dates Next Due Naima Valero primary monoval ent 12+ yr 0.3mL Purple cap 08/31/2021,08/10/2021 Social History Tobacco Use Types Packs/Day Years [...] Description 01/02/2025 11:00 AM CDT Office Visit [facility] - Neurology [address] [place] [address] Kellee Mojica PA-C [address] [place] [address] Care Teams Operations Support Specialist Relationship Specialty Start Date End Date Aaron Julien MD [address] [place] [address] PCP - General 06/10/21 Nixon Draper MD 04/04/21
--- OUTSIDE RECORDS SUMMARY | 2024-10-16 16:51 | XMS_ITS ---
Author Organization [facility] Address [address] [place] [address] Care Team Providers Care Supercharge Repair Supervisor Name Role Phone Aaron Julien Primary Care Provider REASON FOR VISIT 2 MO FU Social History Sex Assigned At : Social History Observation Description Sex Assigned At Male Encounters Encounter Location Date Provider Diagnosis [address] [address] 09/23/2024 Aaron Julien Plan Of Treatment No Information Progress Notes * Jose OLIVAREZ JrDOB:1990 (34 yo M)Acc No.[id number]:09/23/2024 UNLOCKED PROGRESS NOTE Progress Notes Patient: Tawnya TORRESTOD Jose Trinidad Provider: Lucia Julien :1990 A ge:34 Y S ex:Male Date:09/23/2024 Address:[address] [place] [address] [address] Subjective: * Chief Complaints: * 1 . 2 MO FU. * Medical History: Objective: * Vitals: Assessment: Plan: * Treatment: * * Electronic signature of Mary Julien , [id number] on 10/16/2024 at 04:50 PM VICE PRESIDENT [employer]OV[employer] Sign off status: Pending * Provider: Lucia Julien Date: 0 09/23/2024 Generated for Arlene walton/Cathleen/eTjosesmitting on: 10/16/2024 04:50 PM VICE PRESIDENT [employer]
== END 2024-10-16 14:34 | disposition home or self-care (01) ==
LOC: ANHLAB 14:35
PROVIDERS: PCP Internal Medicine; Visit Provider Internal Medicine Nephrology
DX: N18.5 Chronic kidney disease, stage 5 (principal); Q85.1 Tuberous sclerosis
CPT/HCPCS: 36415; 80069; 82306

== ENCOUNTER 2025-02-13 09:35 | Outpatient (CLI) | payer OTHER, SELFPAY ==
[2025-02-13 10:12] LABS: Creatinine Urine 39.9 mg/dL; Total Protein Urine Random 103 mg/dL; Ur Ttl Prot Creatinine Ratio 2.58 mg/mg (0-0.20)
[2025-02-13 10:33] LABS: Anion Gap 10 mmol/L (4-12); Blood Urea Nitrogen 37 mg/dL (9-20); Calcium 8.5 mg/dL (8.4-10.2); Carbon Dioxide 19 mmol/L (22-30); Chloride 113 mmol/L (98-107); Estimated Glomerular Filt Rate 10; Glucose 100 mg/dL (65-110); Phosphorus 3.6 mg/dL (2.5-4.5); Potassium 5.3 mmol/L (3.4-5.0); Sodium 142 mmol/L (137-145)
[2025-02-13 10:35] LABS: Vitamin D 25 Hydroxy 46.1 ng/mL
== END 2025-02-13 09:36 | disposition home or self-care (01) ==
PROVIDERS: PCP Internal Medicine; Visit Provider Internal Medicine Nephrology
DX: N18.5 Chronic kidney disease, stage 5 (principal); Q85.1 Tuberous sclerosis; N25.81 Secondary hyperparathyroidism of renal origin; E55.9 Vitamin D deficiency, unspecified
CPT/HCPCS: 36415; 80069; 82306; 82570; 83970; 84156

== ENCOUNTER 2025-07-18 11:05 | Outpatient (CLI) | payer OTHER, SELFPAY ==
[2025-07-18 11:55] LABS: Albumin Level 3.8 g/dL (3.5-5.1); Anion Gap 9 mmol/L (4-12); Blood Urea Nitrogen 52 mg/dL (9-20); Calcium 8.6 mg/dL (8.4-10.2); Carbon Dioxide 20 mmol/L (22-30); Chloride 109 mmol/L (98-107); Estimated Glomerular Filt Rate 7; Glucose 85 mg/dL (65-110); Potassium 4.8 mmol/L (3.4-5.0); Sodium 138 mmol/L (137-145)
[2025-07-18 12:07] LABS: Parathyroid Intact 1063.0 pg/mL (14.5-75.2)
== END 2025-07-18 11:06 | disposition home or self-care (01) ==
LOC: ANHLAB 11:08
PROVIDERS: PCP Internal Medicine; Visit Provider Internal Medicine Nephrology
DX: N18.5 Chronic kidney disease, stage 5 (principal); N25.81 Secondary hyperparathyroidism of renal origin; E55.9 Vitamin D deficiency, unspecified
CPT/HCPCS: 36415; 80069; 82306; 83970